=== PATIENT | male | born 1965 | race Two or more races ===

== ENCOUNTER 2018-07-11 20:23 | Emergency (ER) | payer OTHER ==
[~2018-07-11] VITALS: Ht 167.6 cm; Wt 68.0 kg
[2018-07-11 20:34] VITALS: BP 184/108
[2018-07-11] MEDS: HYDROcodone/Acetamin 7.5/325 tab ORAL ONE (20:43)
[2018-07-11] MEDS: Tetanus/Diptheria/Pertussis Vaccine 0.5ml Syr IM ONE (20:47)
[2018-07-11] MEDS ORDERED: IBUPROFEN600 MG ORAL (21:16)
[2018-07-11] MEDS ORDERED: NORCO 5-325 TA1 EACH ORAL (21:16)
[2018-07-11] MEDS ORDERED: SILVADENE20 GM TP (21:16)
[2018-07-11 21:20] VITALS: BP 184/108
--- NOTE | 2018-07-11 21:36 | Emergency Room Report ---
History of Present Illness General Chief Complaint: Burn/Smoke Inhalation Source: Patient Present Illness HPI The patient is a 53-year-old male presenting for burn injury. He states that he was at work one hour prior to arrival and hot oil spilled onto his right arm and hand. He noticed immediate pain. He ran cold water over his arm and hand before arrival. Pain is now an 8 out of 10 dull ache and does not radiate. He denies any numbness or tingling. He denies any other injury or symptoms Allergies: Coded Allergies: No Known Allergies (Unverified , 07/11/18) Patient History Past Medical History: see triage record Pertinent Family History: none Reviewed Nursing Documentation: PMH: Agreed; PSxH: Agreed Nursing Documentation-PM Past Medical History: No History, Except For Hx Diabetes: Yes Review of Systems All Other Systems: negative except mentioned in HPI Physical Exam Vital Signs Date Time Temp Pulse Resp B/P (MAP) Pulse Ox O2 Delivery O2 Flow Rate FiO2 07/11/18 20:27 98.4 101 16 184/108 96 07/11/18 20:34 Room Air Sp02 EP Interpretation: reviewed, normal General Appearance: no apparent distress, alert, GCS 15, non-toxic Head: normocephalic, atraumatic Musculoskeletal: back normal, gait/station normal, normal range of motion Neurologic: alert, oriented x3, responsive, motor strength/tone normal, sensory intact, speech normal Psychiatric: judgement/insight normal, memory normal, mood/affect normal, no suicidal/homicidal ideation Skin: ivan - erythema and blistering of the distal r forearm and hand dorsal surface Medical Decision Making PA Attestation Dr. Bhatia is my supervising physician. Patient management was discussed with my supervising physician Diagnostic Impression: Primary Impression: 2nd degree burn ER Course The patient is a 53-year-old male presenting for burn injury. Differential diagnosis considered but not limited to: First-degree burn, second- degree burn, third-degree burn Physical exam: No apparent distress There is scattered erythema as well as several areas of intact blisters of the right dorsal surface of the distal forearm and hand. Full active range of motion of the wrist and fingers are intact. Sensation is intact to light touch Silvadene is applied to burn areas Blisters remain intact He is given pain medication and pain has improved. He is given work restrictions including limited use of right hand. He is told to not pop the blisters. He will need to follow up with primary care for wound check within 3-5 days. ER precautions given Last Vital Signs Date Time Temp Pulse Resp B/P (MAP) Pulse Ox O2 Delivery O2 Flow Rate FiO2 07/11/18 21:20 98.4 101 16 184/108 96 Room Air Status: improved Disposition: HOME, SELF-CARE Condition: Improved Scripts Silver Sulfadiazine (SILVADENE) 20 Gm Cream..g. 20 GM TP Q12HR, #20 GM Prov: NITESH GAGNON.A. 07/11/18 Hydrocodone Bit/Acetaminophen 5-325* (NORCO 5-325*) 1 Each Tablet 1 TAB ORAL Q6H PRN for For Pain, #10 TAB 0 Refills Prov: NITESH GAGNON.A. 07/11/18 Ibuprofen* (MOTRIN*) 600 Mg Tablet 600 MG ORAL Q8H PRN for For Pain, #30 TAB 0 Refills Prov: NITESH GAGNON.A. 07/11/18 Patient Instructions: Second-Degree Burn Additional Instructions: I discussed my findings with the patient. All questions and concerns have been answered. Treatment and medication compliance have been addressed. I advised the patient that they need to follow up with PMD in 3-5 days. Return to ED if symptoms worsen, new symptoms arise, or if needed for any reason. Patient verbalized understanding of discharge instructions. NITESH GAGNON Jul 11, 2018 21:36
== END 2018-07-11 21:20 | disposition home or self-care (01) ==
LOC: EDSEX 20:23 → EMR 20:54
DX: T23.201A Burn of second degree of right hand, unspecified site, initial encounter (principal); T31.0 Burns involving less than 10% of body surface; X10.2XXA Contact with fats and cooking oils, initial encounter; Y92.69 Other specified industrial and construction area as the place of occurrence of the external cause; E11.9 Type 2 diabetes mellitus without complications; Z23 Encounter for immunization
CPT/HCPCS: 90471; 90715; 99283

== ENCOUNTER 2020-06-28 12:29 | Inpatient (IN) | payer SELFPAY ==
[~2020-06-28] VITALS: Ht 170.2 cm; Wt 70.3 kg
[~2020-06-28 12:29] MED LIST: IBUPROFEN600 MG ORAL; NORCO 5-325 TA1 EACH ORAL; SILVADENE20 GM TP
[2020-06-28] MEDS ORDERED: dexAMETHasone 10mg/ml Inj IV ONE (13:00)
[2020-06-28 13:05] VITALS: BP 135/79
--- NOTE | 2020-06-28 13:10 | NUR ---
ED Nurse Note: pt presents to ED c/o MONTANEZ x 4 days, denies fevers, or chills but is noted to be febrile in triage with saturation inthe 84%-85% range. pt states he did not know he had a fever, has not come into contact with anyone sick, does not work anymore and has not experienced SOB. pt denies loss of taste/smell or N/V/D. pt immediately placed on simple mask with 6L O2, saturation improves to 95%.
[2020-06-28 13:35] LABS: BASOPHILS % (AUTO) 0.4 % (0.0-2.0); HEMATOCRIT 49.1 % (42.0-52.0); HEMOGLOBIN 17.5 G/DL (14.2-18.0); LYMPHOCYTES % (AUTO) 12.7 % (20.0-45.0); MEAN CORPUSCULAR VOLUME 95 FL (80-99); MONOCYTES % (AUTO) 4.1 % (1.0-10.0); NEUTROPHILS % (AUTO) 82.8 % (45.0-75.0); PLATELET COUNT 142 K/UL (150-450); RED BLOOD COUNT 5.16 M/UL (4.70-6.10); RED CELL DISTRIBUTION WIDTH 11.6 % (11.6-14.8); WHITE BLOOD COUNT 7.6 K/UL (4.8-10.8)
[2020-06-28 13:43] LABS: INR 0.9 (0.9-1.1)
[2020-06-28 13:47] LABS: ANION GAP 9 mmol/L (5-15); BLOOD UREA NITROGEN 9 mg/dL (7-18); CALCIUM 8.4 MG/DL (8.5-10.1); CARBON DIOXIDE 25 MMOL/L (21-32); CHLORIDE 98 MMOL/L (98-107); CREATININE 0.9 MG/DL (0.55-1.30); POTASSIUM 4.4 MMOL/L (3.5-5.1); SODIUM 132 MMOL/L (136-145)
[2020-06-28 13:55] VITALS: BP 137/80
[2020-06-28 14:06] LABS: ALANINE AMINOTRANSFERASE 75 U/L (12-78); ALBUMIN 3.3 G/DL (3.4-5.0); ALBUMIN/GLOBULIN RATIO 0.7 (1.0-2.7); ALKALINE PHOSPHATASE 72 U/L (46-116); ASPARTATE AMINO TRANSFERASE 86 U/L (15-37); BILIRUBIN,TOTAL 0.6 MG/DL (0.2-1.0); CKMB < 0.5 NG/ML (0.0-3.6); CREATINE KINASE 121 U/L (26-308); FERRITIN 1973 NG/ML (8-388); LACTATE DEHYDROGENASE 677 U/L (81-234)
--- NOTE | 2020-06-28 14:08 | Emergency Room Report ---
History of Present Illness General Chief Complaint: Flu Like Symptoms Source: Patient (Gabriella Schwarz) Present Illness HPI 55-year-old male with history of type 2 diabetes, hypertension currently taking medication here complaining of 4 days of exenatide headache. Denies any shortness of breath, chest pain, cough and congestion. Reports a minor sore throat. Patient appears to be hypoxic satting 84% upon arrival. Denies any chest tightness at this time. Denies diarrhea. Patient also appears to be tachycardic. Has not taken medication for symptom relief. Patient speaking full sentences, denies any blood thinners. 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: No (Gabriella Schwarz) Patient History Past Medical History: see triage record Past Surgical History: none Pertinent Family History: none Immunizations: UTD Reviewed Nursing Documentation: PMH: Agreed; PSxH: Agreed (Gabriella Schwarz) Nursing Documentation-PMH Past Medical History: No History, Except For Hx Diabetes: Yes (Gabriella Schwarz) Review of Systems All Other Systems: negative except mentioned in HPI (Gabriella Schwarz) Physical Exam Vital Signs Date Time Temp Pulse Resp B/P (MAP) Pulse Ox O2 Delivery O2 Flow Rate FiO2 06/28/20 12:40 102.7 114 24 135/79 (97) 84 Room Air 06/28/20 13:25 6.0 Sp02 EP Interpretation: abnormal - Hypoxic and tachycardic General Appearance: moderate distress Head: normocephalic, atraumatic Eyes: bilateral eye normal inspection, bilateral eye PERRL ENT: no angioedema Neck: supple Respiratory: no respiratory distress, no retraction, no accessory muscle use Cardiovascular #1: tachycardia Cardiovascular #2: 2+ carotid (R), 2+ carotid (L), 2+ radial (R), 2+ radial (L), 2+ dorsalis pedis (R), 2+ dorsalis pedis (L) Gastrointestinal: non tender, soft Rectal: deferred Genitourinary: no CVA tenderness Musculoskeletal: back normal, no calf tenderness Neurologic: alert, motor strength/tone normal, oriented x3, sensory intact, responsive, speech normal Psychiatric: judgement/insight normal, memory normal, mood/affect normal, no suicidal/homicidal ideation Skin: no rash Lymphatic: no adenopathy (Gabriella Schwarz) Procedures Critical Care Time Critical Care Time Total critical care time; approximately 31 minutes. Due to a high probability of clinically significant, life threatening deterioration, the patient required my highest level of preparedness to intervene emergently and I personally spent this critical care time directly and personally managing the patient. This critical care time included obtaining a history; examining the patient; pulse oximetry; ordering and reviewing of studies; arranging urgent treatment with development of a management plan; evaluation of patient's response to treatment; frequent reassessment; and, discussions with other providers. This critical care time was performed to assess and manage the high probability of imminent, life-threatening deterioration that could result in multiorgan failure it was exclusive of separate billable procedures and treating other patients and te aching time. Please see MDM section and the rest of the note for further information on patient assessment and treatment. (Gabriella Schwarz) Medical Decision Making PA Attestation All my diagnosis and treatment plans were reviewed ad discussed with my supervising physician Dr. Martinez (Gabriella Schwarz) Diagnostic Impression: Primary Impression: Pneumonia due to COVID-19 virus Additional Impression: Hypoxia ER Course 55-year-old male with history of type 2 diabetes, hypertension currently taking medication here complaining of 4 days of exenatide headache. Denies any shortness of breath, chest pain, cough and congestion. Reports a minor sore throat. Patient appears to be hypoxic satting 84% upon arrival. Denies any chest tightness at this time. Denies diarrhea. Patient also appears to be tachycardic. Has not taken medication for symptom relief. Patient speaking full sentences, denies any blood thinners. Ddx considered but are not limited to: bronchitis, PNA, URI viral, bacterial brochitis, Covid pneumonia Vital signs: are WNL, pt. is afebrile H&PE are most consistent with: Covid pneumonia, hypoxia ORDERS: ER Covid order set ED INTERVENTIONS: Rocephin, azithromycin, Lovenox, Decadron, nonrebreather oxygen 6 L Patient was admited with diagnosis of hypoxia, Covid pneumonia to Dr. Yun under supervision of : Juan Patient satting at 98% on 6 L nonrebreather pt stable at time of admission (Gabriella Schwarz) ER Course Patient was noted to have multilobar infiltrates on chest x-ray consistent with suspected coronavirus pneumonia. Patient started on medications including Decadron and anticoagulation. Patient will be hospitalized for further evaluation and treatment of suspected coronavirus pneumonia despite negative rapid testing. (Anthony Cruz MD) EKG Diagnostic Results Rate: tachycardiac Rhythm: other - Tachycardic ST Segments: no acute changes ASA given to the pt in ED: No (Gabriella Schwarz) Chest X-Ray Diagnostic Results Chest X-Ray Diagnostic Results : Chest X-Ray Ordered: Yes # of Views/Limited/Complete: 1 View Indication: Other EP Interpretation: Yes PA Xray: Interpretation reviewed, by supervising MD, and agrees with findings. Interpretation: other - Diffuse infiltrates which appear to be Covid pneumonia Impression: Other - Pneumonia Electronically Signed by: Gabriella Mendoza PA-C (Gabriella Schwarz) Last Vital Signs Date Time Temp Pulse Resp B/P (MAP) Pulse Ox O2 Delivery O2 Flow Rate FiO2 06/28/20 13:55 102.7 105 24 137/80 99 Simple Mask 6.0 (Gabriella Schwarz) Status: unchanged (Anthony Cruz MD) Disposition: ADMITTED INPATIENT Condition: Serious Referrals: NOT CHOSEN IPA/,REFERRING (PCP) Gabriella Schwarz Jun 28, 2020 14:08 Anthony Cruz MD Jun 28, 2020 15:55
[2020-06-28] MEDS ORDERED: Enoxaparin 60mg Inj SUBQ ONE (14:15)
--- NOTE | 2020-06-28 14:20 | NUR ---
ED Nurse Note: oral temp recheck: 100.3
[2020-06-28] MEDS ORDERED: Azithromycin 500 MG in NS 275 ML IV ONE (14:30)
[2020-06-28] MEDS ORDERED: cefTRIAXone 1 GM in NS 55 ML IVPB ONE (14:30)
[2020-06-28 14:45] LABS: APPEARANCE,URINE CLEAR; BILIRUBIN, URINE NEGATIVE (NEGATIVE); GLUCOSE, URINE (UA) 4+ (NEGATIVE); KETONES,URINE 4+ (NEGATIVE); LEUKOCYTE ESTERASE ,URINE 1+ (NEGATIVE); NITRITE,URINE NEGATIVE (NEGATIVE); PH,URINE 6 (4.5-8.0); PROTEIN,URINE 4+ (NEGATIVE); UROBILINOGEN,URINE 1 MG/DL (0.0-1.0)
[2020-06-28 14:46] LABS: COLOR,URINE YELLOW
[2020-06-28 15:30] VITALS: BP 137/80
--- NOTE | 2020-06-28 15:49 | Diagnostic Imaging Report ---
Indication: Reason For Exam: SOB Technique: Single AP view of the chest. Comparison: None. Findings: Heart is not enlarged when accounting for projection and technique. There are diffuse bilateral interstitial opacities. There is diffuse peribronchial thickening. There is multifocal airspace consolidation and scattered airspace opacities. No pneumothorax or pleural effusion. No acute osseous abnormality. IMPRESSION: Bilateral airspace disease concerning for multifocal pneumonia, including atypical/viral etiologies.
--- NOTE | 2020-06-28 17:45 | Consultation ---
DATE OF CONSULTATION: 06/28/2020 PULMONARY CONSULTATION CONSULTING PHYSICIAN: Eloy Garg MD HISTORY OF PRESENT ILLNESS: This is a 55-year-old male being admitted to the hospital with concerns of pneumonia. He is a diabetic and hypertensive, who presented to the hospital with severe headache. He reported throat congestion. Patient was hypoxic on arrival with saturating 84% on emergency room. He was also tachycardic. Patient was seen and evaluated. Currently, saturations are 96% on 6 L simple mask. He underwent imaging studies today, which have shown that he has bilateral multifocal airspace disease suspicious for pneumonia. PAST MEDICAL HISTORY: Hypertension, diabetes mellitus. HOME MEDICATIONS: Reviewed and reconciled in the chart. ALLERGIES: None reported. PAST SURGICAL HISTORY: None reported. SOCIAL HISTORY: Denies any alcohol or tobacco use. PHYSICAL EXAMINATION: GENERAL: Reveals a 55-year-old male. HEENT: Unremarkable. LUNGS: Clear breath sounds bilaterally. ABDOMEN: Soft. EXTREMITIES: There is no edema. NEUROLOGIC: Nonfocal. VITAL SIGNS: Blood pressure is 130/70, heart rate is 94, respirations are 22, O2 saturation is 98% on 6 liters of oxygen, T-max 102.7. LABORATORY DATA: Lab testing shows normal CBC. BMP notable for glucose 244. Ferritin 1973. AST 86. LDH . CRP 27.7. Coags show D-dimer 0.9. Urinalysis negative. IMPRESSION: 1. Bilateral pulmonary infiltrates, high suspicion for COVID-19 pneumonia. 2. Elevated inflammatory markers. 3. Negative initial rapid gene testing for COVID-19. 4. Hypertension. 5. Diabetes mellitus. 6. Fever. DISCUSSION: Agree with admission and care. Patient will need steroids. He will receive dexamethasone x1. He will also need DVT prophylaxis and empiric antibiotics. We will order COVID-19 PCR with [facility]. We will send to [facility]. We will follow carefully. Order oxygen. Eloy Garg M.D. DR: DONAVON JOB#: [id number] CC:
[2020-06-28 17:55] VITALS: BP 130/79
--- NOTE | 2020-06-28 18:19 | NUR ---
ED Nurse Note: Report given to Addis VARGAS.
--- NOTE | 2020-06-28 18:20 | NUR ---
ED Nurse Note: Pt transferred to tele floor with all belongings. No acute distress. Pt has been cleared by ERMD to be transfererd.
[2020-06-28 18:30] VITALS: BP 113/71
--- NOTE | 2020-06-28 18:30 | NUR ---
NURSE NOTES: Received pt report from ALICIA Swan. Transferred from ER to Tele via [facility] to room 201-2. Changed pt to hospital gown, security monitor in place. Vital signs taken. Pt is AO x4. Able to make needs known. Pt on simple mask @6L with no signs of respiratory distress noted. Pt denies any pain or discomfort at this time. Skin is intact. Pt with R AC 20G, patent and intact. Belonging check done and signed. Bed in lowest position, locked with side rails x2 up. Call light and urinal within reach. Encouraged to use call light when needed. Will endorse admission order to shift supervisor.
--- NOTE | 2020-06-28 19:32 | NUR ---
NURSE HAND-OFF REPORT: Important Events on Shift: New admission Patient Status: Stable Diet: N/A Pending Orders: N/A Pending Results/Labs:N/A Pending MD notification:N/A Latest Vital Signs: Temperature 98.4 , Pulse 94 , B/P 117 /65 , Respiratory Rate 23 , O2 SAT 96 , Nasal Cannula, O2 Flow Rate 6.0 . Vital Sign Comment: stable EKG Rhythm: Sinus Rhythm Rhythm change?: MD Notified?: - MD Response: Latest Stafford Fall Score: Fall Risk: Safety Measures: Call light , Bed Alarm , Side Rails , Bed position . Fall Precautions: Report given to Elsa/ALICIA.
--- NOTE | 2020-06-28 19:33 | NUR ---
NURSE NOTES: Important Events on Shift: Received report from Sybil Edmonds RN for new admission from ER per [facility]. Pt is AOx4, Nigerien speaking, denies pain. No signs or symptoms of distress noted at this time. VS WNL, simple mask at 6 L. Droplet, contact precautions in place. Pt instructed to use call light if assistance is needed, verbalized understanding. Will start plan of care and continuous monitoring. Patient Status: stable Diet: pending MD order Pending Orders: diet, Pending Results/Labs: none Pending MD notification: none Latest Vital Signs: Temperature 97.2 , Pulse 83 , B/P 98/50 , Respiratory Rate 22 , O2 SAT 99 , Simple mask @ 6L,, O2 Flow Rate 6.0 . Vital Sign Comment: Stable, asymptomatic EKG Rhythm: Sinus Rhythm Rhythm change?: MD Notified?: - MD Response: Latest Stafford Fall Score: Fall Risk: mild Safety Measures: Call light within reach, Bed Alarm armed, Side Rails x 2, Bed position Semi fowlers low and locked. . Fall Precautions: YES
[2020-06-29 04:00] VITALS: BP 110/72
[2020-06-29] MEDS ORDERED: Morphine Sulfate 2mg/ml Inj(IV/IM USE ONLY) IVP PRN (04:15)
--- NOTE | 2020-06-29 07:05 | NUR ---
NURSE NOTES: Pt does not have Novolog on unit yet. Called pharmacy, spoke to José Antonio who said they'd send it to unit. Endorsed to AM shift RN Wanda Douglass RN. Pt asymptomatic.
--- NOTE | 2020-06-29 07:06 | NUR ---
NURSE HAND-OFF REPORT: Important Events on Shift: Admitted to Tele 201-2. Received orders from [facility]. Pt has no complaints, no signs or symptoms of pain or distress noted at this time. Droplet and contact precautions in place. Patient Status: stable Diet: CCHO M, Low Na Pending Orders: none Pending Results/Labs: cbc, cmp Pending MD notification: none Latest Vital Signs: Temperature 97.8 , Pulse 84 , B/P 110 /72 , Respiratory Rate 20 , O2 SAT 97 , Nasal Cannula, O2 Flow Rate 6.0 . Vital Sign Comment: stable EKG Rhythm: Sinus Rhythm Rhythm change?: N MD Notified?: - MD Response: Latest Stafford Fall Score: 20 Fall Risk: Low Risk Safety Measures: Call light Within Reach, Bed Alarm Zone 1, Side Rails Side Rails x2, Bed position Low and Locked. Fall Precautions: YES Yellow Socks YES Yellow Gown YES Patient Fall Education YES Report given to Wanda Douglass RN
--- NOTE | 2020-06-29 07:10 | NUR ---
NURSE NOTES: Called respiratory therapist and Dr. Yun and Dr. Garg regarding low 90's oxygen saturation. Left voicemails for the doctor of the patient status and request for oxygen titration. Respiratory therapist coming to increase oxygen.
[2020-06-29 07:43] LABS: BASOPHILS % (AUTO) 0.5 % (0.0-2.0); HEMATOCRIT 44.1 % (42.0-52.0); HEMOGLOBIN 16.1 G/DL (14.2-18.0); LYMPHOCYTES % (AUTO) 20.4 % (20.0-45.0); MEAN CORPUSCULAR VOLUME 94 FL (80-99); MONOCYTES % (AUTO) 3.9 % (1.0-10.0); NEUTROPHILS % (AUTO) 75.3 % (45.0-75.0); PLATELET COUNT 154 K/UL (150-450); RED BLOOD COUNT 4.67 M/UL (4.70-6.10); RED CELL DISTRIBUTION WIDTH 11.7 % (11.6-14.8); WHITE BLOOD COUNT 4.5 K/UL (4.8-10.8)
[2020-06-29 07:56] LABS: ALANINE AMINOTRANSFERASE 77 U/L (12-78); ALBUMIN 2.7 G/DL (3.4-5.0); ALBUMIN/GLOBULIN RATIO 0.6 (1.0-2.7); ALKALINE PHOSPHATASE 59 U/L (46-116); ANION GAP 12 mmol/L (5-15); ASPARTATE AMINO TRANSFERASE 76 U/L (15-37); BILIRUBIN,TOTAL 0.5 MG/DL (0.2-1.0); BLOOD UREA NITROGEN 15 mg/dL (7-18); CALCIUM 8.4 MG/DL (8.5-10.1); CARBON DIOXIDE 23 MMOL/L (21-32); CHLORIDE 104 MMOL/L (98-107); CREATININE 0.7 MG/DL (0.55-1.30); POTASSIUM 4.3 MMOL/L (3.5-5.1); SODIUM 139 MMOL/L (136-145)
[2020-06-29 08:00] VITALS: BP 114/75
[2020-06-29] MEDS: NovoLOG Insulin Flexpen SUBQ SCH ×5 (08:37→20:19)
[2020-06-29] MEDS: Heparin 5000 units/ml inj SUBQ SCH ×2 (08:41→20:17)
[2020-06-29] MEDS: guaiFENesin /DM 10ml syrup ORAL PRN (10:52)
[2020-06-29 12:00] VITALS: BP 117/71
--- NOTE | 2020-06-29 12:10 | NUR ---
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 102.8 HR 114 RR 21 B/P 138/78 UA+ PROTEIN,KETONES,BLOOD,UROBILINOGEN CXR=Bilateral airspace disease concerning for multifocal pneumonia, including ATYPICAL/VIRAL ETIOLOGIES. IS: IV BOLUS NS X 1 LITER ADMITTED TO TELE@ 1850 TELE STATUS DCP PENDING HOSPITAL STAY
--- NOTE | 2020-06-29 15:00 | History and Physical Report ---
DATE OF ADMISSION: 06/28/2020 DATE AND TIME SEEN: 06/29/2020 at 1 p.m. CONSULTANTS: 1. Eloy Garg MD 2. Navarro Zuñiga MD CHIEF COMPLAINT: Hypoxia, pneumonia, positive COVID, fever. BRIEF HISTORY: This is a 55-year-old male presented to [facility] last night with above-mentioned diagnoses, slight short of breath for 2 days. Currently getting pulmonary treatment, sleeping in bed. History is obtained from chart review. REVIEW OF SYSTEMS: Unavailable. PAST MEDICAL HISTORY: Diabetes, hypertension. PAST SURGICAL HISTORY: Unknown. MEDICATIONS: Include heparin, albuterol, insulin, morphine, Zofran, , azithromycin, ceftriaxone, enoxaparin. ALLERGIES: Denies. SOCIAL HISTORY: No smoking. No alcohol. No intravenous drug abuse. FAMILY HISTORY: Noncontributory. PHYSICAL EXAMINATION: GENERAL: Pulmonary treatment in bed, sleepy, not talking much. Calm in room. VITAL SIGNS: Temperature 97 degrees, pulse 89, respirations 20, blood pressure 117/71. HEENT: Normocephalic, atraumatic. NECK: Trachea midline. CARDIOVASCULAR: No peripheral edema. LUNGS: Slight short of breath. ABDOMEN: No apparent wounds. EXTREMITIES: No cyanosis or clubbing. NEUROLOGIC: Patient is flaccid in bed, not following directions. LABORATORY AND DIAGNOSTIC DATA: Labs at this time show white count 4.5, otherwise CBC is normal. BMP shows glucose 283, otherwise normal. Albumin 2.7. INR is 0.9. Urinalysis show 1+ leukocyte esterase. ASSESSMENT: 1. Hypoxia. 2. Pneumonia. 3. UTI. 4. Possible COVID. 5. Fever. 6. Diabetes. 7. Hypertension. 8. Malnutrition. PLAN: 1. Resume home medications. 2. O2, pulmonary treatment. 3. Antibiotics per Infectious Disease. 4. Blood pressure, blood sugar control. 5. PT, dietary evaluation. 6. CBC, BMP in the morning. Melo Yun D.O. DR: JADA JOB#: [id number] CC:
--- NOTE | 2020-06-29 15:14 | NUR ---
NURSE NOTES: Notified Dr. Fontaine in person regarding blood culture 1 bottle positive for cocci with clusters.
--- NOTE | 2020-06-29 15:16 | NUR ---
NURSE NOTES: Notified and left a voicemail for Dr. Zuñiga regarding blood culture 1 bottle positive for cocci with clusters. Awaiting response.
--- NOTE | 2020-06-29 15:20 | Pulmonology Progress Note ---
Subjective ROS Limited/Unobtainable: No Interval Events: None new Constitutional: Reports: no symptoms HEENT: Repors: no symptoms Respiratory: Reports: dry cough Cardiovascular: Reports: no symptoms Gastrointestinal/Abdominal: Reports: no symptoms Musculoskeletal: Reports: no symptoms Allergies: Coded Allergies: No Known Allergies (Unverified , 07/11/18) Objective Last 24 Hour Vital Signs Date Time Temp Pulse Resp B/P (MAP) Pulse Ox O2 Delivery O2 Flow Rate FiO2 06/29/20 12:00 97.5 98 20 117/71 (86) 95 06/29/20 12:00 89 06/29/20 08:00 89 06/29/20 08:00 97.5 90 19 114/75 (88) 94 06/29/20 04:00 97.8 84 20 110/72 (85) 97 06/29/20 03:23 Simple Mask 6.0 06/29/20 00:00 85 06/28/20 20:00 76 06/28/20 18:30 98.4 94 23 117/65 96 Nasal Cannula 6.0 06/28/20 18:30 97.5 83 19 113/71 (85) 97 06/28/20 17:55 100.3 92 32 130/79 99 Simple Mask 6.0 06/28/20 15:30 100.3 99 36 137/80 98 Simple Mask 6.0 Intake and Output 06/28/20 06/29/20 19:00 07:00 Intake Total 100 ml 800 ml Output Total 1000 ml Balance 100 ml -200 ml Intake Oral 100 ml 800 ml Output Urine Total 1000 ml # Voids 3 Objective 06/29/2020 pt in bed; saturating 97% on 6 lpm simple face mask General Appearance: WD/WN, no acute distress HEENT: normocephalic Respiratory: chest wall non-tender, lungs clear, normal breath sounds Cardiovascular: normal rate, regular rhythm, no gallop/murmur Microbiology Date/Time Source Procedure Growth Status 06/28/20 13:45 Nasopharynx SARS-CoV-2 RdRp Gene Assay - Final Complete 06/28/20 13:15 Blood Blood Culture - Preliminary Resulted Laboratory Tests 06/29/20 05:33: POC Whole Blood Glucose 261H 06/29/20 05:36: White Blood Count 4.5L, Red Blood Count 4.67L, Hemoglobin 16.1, Hematocrit 44.1, Mean Corpuscular Volume 94, Mean Corpuscular Hemoglobin 34.5H, Mean Corpuscular Hemoglobin Concent 36.5H, Red Cell Distribution Width 11.7, Platelet Count 154, Mean Platelet Volume 8.8, Neutrophils (%) (Auto) 75.3H, Lymphocytes (%) (Auto) 20.4, Monocytes (%) (Auto) 3.9, Eosinophils (%) (Auto) 0.0, Basophils (%) (Auto) 0.5, Sodium Level 139, Potassium Level 4.3, Chloride Level 104, Carbon Dioxide Level 23, Anion Gap 12, Blood Urea Nitrogen 15, Creatinine 0.7, Estimat Glomerular Filtration Rate > 60, Glucose Level 283H, Hemoglobin A1c 6.8H, Calcium Level 8.4L, Total Bilirubin 0.5, Aspartate Amino Transf (AST/SGOT) 76H, Alanine Aminotransferase (ALT/SGPT) 77, Alkaline Phosphatase 59, Total Protein 6.9, Albumin 2.7L, Globulin 4.2, Albumin/Globulin Ratio 0.6L 06/29/20 08:34: POC Whole Blood Glucose 369H Current Medications Medications (Trade) Dose Ordered Sig/Sunshine Route PRN Reason Start Time Stop Time Status Last Admin Dose Admin Acetaminophen (Tylenol) 650 mg Q6H PRN ORAL Pain 0-4/10 or Temp >100.4 F 06/29/20 04:15 07/29/20 04:14 Albuterol/ Ipratropium (Combivent Respimat) 1 puff Q6H PRN INH coughing/SOB 06/29/20 07:00 07/29/20 06:59 Dextrose (Dextrose 50%) 25 ml Q30M PRN IV Hypoglycemia 06/29/20 04:15 09/27/20 04:14 Dextrose (Dextrose 50%) 50 ml Q30M PRN IV Hypoglycemia 06/29/20 04:15 09/27/20 04:14 Guaifenesin/ Dextromethorphan (Robitussin DM Syrup) 10 ml Q4H PRN ORAL For Cough 06/29/20 04:15 09/27/20 04:14 06/29/20 10:52 Heparin Sodium (Porcine) (Heparin 5000 units/ml) 5,000 units EVERY 12 HOURS SUBQ 06/29/20 09:00 08/13/20 08:59 06/29/20 08:41 Insulin Aspart (NovoLOG) BEFORE MEALS AND HS SUBQ 06/29/20 06:30 09/27/20 06:29 06/29/20 10:59 Morphine Sulfate (Morphine Sulfate) 2 mg Q4H PRN IVP For Pain Scale 5-10 06/29/20 04:15 07/06/20 04:14 Ondansetron HCl (Zofran) 4 mg Q6H PRN IVP Nausea & Vomiting 06/29/20 04:15 07/29/20 04:14 Sodium Chloride 1,000 ml @ 60 mls/hr [id number] IV 06/29/20 05:30 07/29/20 05:29 06/29/20 05:30 Assessment/Plan Assessment/Plan 1. Bilateral pulmonary infiltrates, high suspicion for COVID-19 pneumonia. - on dexamethasone - empiric Abx - currently on 6 lpm NC saturating 97% 2. Elevated inflammatory markers. 3. Negative initial rapid gene testing for COVID-19. 4. Hypertension. 5. Diabetes mellitus. 6. Fever. We will order COVID-19 PCR with [facility]. We will send to [facility]. The care for this patient was discussed with my supervising physician Time spent for this case was approximately 31 minutes The patient was seen and examined at bedside and all new and available data was reviewed in the patients chart. I agree with the above findings, impression, and plan. (Patient was seen earlier today. Signature timestamp does not reflect patient encounter time) Zhen Austin MD Jun 29, 2020 15:20 Eloy Garg MD Jun 29, 2020 17:46
[2020-06-29 16:00] VITALS: BP 123/79
[2020-06-29] MEDS ORDERED: Vancomycin 1.5gm/300ml Premix IVPB ONE (16:30)
--- NOTE | 2020-06-29 18:03 | NUR ---
NURSE NOTES: Called and left a message to Dr. Jama Voss's exchange and told him that blood sugars have been consistently high over 300, three times today. Was told that Dr. hadley will callback with the callback number given.
--- NOTE | 2020-06-29 19:10 | NUR ---
NURSE HAND-OFF REPORT: Important Events on Shift: simple face mask at 6L, high bgl and Dr. Yun notified Patient Status: stable condition, full code Diet: CCHO medium, low sodium Pending Orders: [] Pending Results/Labs:[] Pending MD notification:[] Latest Vital Signs: Temperature 98.1 , Pulse 87 , B/P 123 /79 , Respiratory Rate 20 , O2 SAT 97 , Simple Mask, O2 Flow Rate 6.0 . Vital Sign Comment: [] EKG Rhythm: Sinus Rhythm Rhythm change?: N MD Notified?: - MD Response: Latest Stafford Fall Score: 20 Fall Risk: Low Risk Safety Measures: Call light Within Reach, Bed Alarm Zone 2, Side Rails Side Rails x2, Bed position Low and Locked. Fall Precautions: Yellow Socks Yellow Gown Patient Fall Education Report given to ALICIA Sepulveda.
--- NOTE | 2020-06-29 19:15 | NUR ---
NURSE NOTES: Received report from ALICIA Cuellar. Patient AOx3, able to verbalize pain and communicate needs. On simple face mask at 6lpm, saturating well. No complaints of pain or discomfort at this time. Not in acute distress. Patient able to move in bed independently. IV sites on RFA #22 flushed and IVF running at a prescribed rate. Another IV site on RAC #20g, saline lock. Flushed. Bed in lowest position, brakes engaged and bed alarm on. Bed rails raised x2. Call light placed within reach. Will continue to monitor.
[2020-06-29 20:00] VITALS: BP 121/77
[2020-06-29] MEDS ORDERED: Levemir Flexpen SUBQ SCH (21:00)
[2020-06-29] MEDS: Vancomycin 750mg/NS 275ml IVPB SCH ×2 (23:03)
[2020-06-30] VITALS: BP 129/85
[2020-06-30 04:00] VITALS: BP 125/79
[2020-06-30] MEDS: Vancomycin 750mg/NS 275ml IVPB SCH ×6 (05:03→21:11)
[2020-06-30] MEDS: NovoLOG Insulin Flexpen SUBQ SCH ×7 (06:14→21:07)
--- NOTE | 2020-06-30 06:54 | General Progress Note ---
Subjective ROS Limited/Unobtainable: Yes Allergies: Coded Allergies: No Known Allergies (Unverified , 07/11/18) Subjective events noted interval notes reviewed glucose values are elevated Item Value Date Time Bedside Blood Glucose 316 mg/dl H 06/30/20 0630 Bedside Blood Glucose 303 mg/dl H 06/29/20 2100 Bedside Blood Glucose 362 mg/dl H 06/29/20 1646 Bedside Blood Glucose 318 mg/dl H 06/29/20 1130 Bedside Blood Glucose 369 mg/dl H 06/29/20 0837 Bedside Blood Glucose 261 mg/dl H 06/29/20 0630 Objective Last 24 Hour Vital Signs Date Time Temp Pulse Resp B/P (MAP) Pulse Ox O2 Delivery O2 Flow Rate FiO2 06/30/20 04:00 97.4 94 20 125/79 (94) 98 06/30/20 04:00 79 06/30/20 00:00 83 06/30/20 00:00 97.9 96 20 129/85 (100) 99 06/29/20 21:00 Simple Mask 6.0 06/29/20 20:00 98 06/29/20 20:00 98.1 96 20 121/77 (92) 97 06/29/20 16:00 98.1 87 20 123/79 (94) 97 06/29/20 16:00 Simple Mask 6.0 06/29/20 16:00 93 06/29/20 12:00 97.5 98 20 117/71 (86) 95 06/29/20 12:00 89 06/29/20 08:00 89 06/29/20 08:00 97.5 90 19 114/75 (88) 94 Intake and Output 06/29/20 06/30/20 19:00 07:00 Intake Total 400 ml 200 ml Output Total 1250 ml 1100 ml Balance -850 ml -900 ml Intake Oral 400 ml 200 ml Output Urine Total 1250 ml 1100 ml # Voids 3 3 Laboratory Tests 06/29/20 08:34: POC Whole Blood Glucose 369H 06/29/20 20:06: POC Whole Blood Glucose 303H 06/30/20 04:59: POC Whole Blood Glucose 316H Height (Feet): 5 Height (Inches): 7.00 Weight (Pounds): 155 Objective Current Medications Medications (Trade) Dose Ordered Sig/Sunshine Route PRN Reason Start Time Stop Time Status Last Admin Dose Admin Acetaminophen (Tylenol) 650 mg Q6H PRN ORAL Pain 0-4/10 or Temp >100.4 F 06/29/20 04:15 07/29/20 04:14 Albuterol/ Ipratropium (Combivent Respimat) 1 puff Q6H PRN INH coughing/SOB 06/29/20 07:00 07/29/20 06:59 Dextrose (Dextrose 50%) 25 ml Q30M PRN IV Hypoglycemia 06/29/20 18:30 09/27/20 18:29 Dextrose (Dextrose 50%) 50 ml Q30M PRN IV Hypoglycemia 06/29/20 18:30 09/27/20 18:29 Guaifenesin/ Dextromethorphan (Robitussin DM Syrup) 10 ml Q4H PRN ORAL For Cough 06/29/20 04:15 09/27/20 04:14 06/29/20 10:52 Heparin Sodium (Porcine) (Heparin 5000 units/ml) 5,000 units EVERY 12 HOURS SUBQ 06/29/20 09:00 08/13/20 08:59 06/29/20 20:17 Insulin Aspart (NovoLOG) BEFORE MEALS AND HS SUBQ 06/29/20 06:30 09/27/20 06:29 06/30/20 06:14 Insulin Aspart (NovoLOG) 8 units NOVOTIAC SUBQ 06/29/20 18:30 09/27/20 18:29 06/30/20 06:15 Insulin Detemir (Levemir) 24 units BEDTIME SUBQ 06/29/20 21:00 09/27/20 20:59 06/29/20 20:18 Morphine Sulfate (Morphine Sulfate) 2 mg Q4H PRN IVP For Pain Scale 5-10 06/29/20 04:15 07/06/20 04:14 Ondansetron HCl (Zofran) 4 mg Q6H PRN IVP Nausea & Vomiting 06/29/20 04:15 07/29/20 04:14 Sodium Chloride 1,000 ml @ 60 mls/hr [id number] IV 06/29/20 05:30 07/29/20 05:29 06/29/20 23:01 Vancomycin HCl (Vanco pharmacy to dose) 1 ea DAILY PRN MISC . 06/29/20 16:30 07/29/20 15:29 Vancomycin HCl 750 mg/Sodium Chloride 275 ml @ 183.333 mls/hr Q8HR IVPB 06/29/20 23:00 07/04/20 22:59 06/30/20 05:03 Assessment/Plan Problem List: (1) Diabetes mellitus out of control ICD Codes: E11.65 - Type 2 diabetes mellitus with hyperglycemia SNOMED: 72384451, 105142499 (2) Pneumonia due to COVID-19 virus ICD Codes: U07.1 - COVID-19; J12.89 - Other viral pneumonia SNOMED: 270120810194872153 Assessment/Plan: Levemir 20 units bid Novolog 12 units ac tid + SSI Lucio Portillo MD Jun 30, 2020 06:54
--- NOTE | 2020-06-30 07:18 | NUR ---
NURSE NOTES: Received report from Carl/RN. Pt awake, having breakfast in bed. Alert and oriented, able to make needs known. On simple mask 6L, no distress or SOB noted. IV on right FA 22G running 1/2 NS @ 60ml/hr and right AC 20G SL, patent and clean. Bed in lowest position and locked. Call light within reach, encouraged to use it when needed. Side rails up X2. Will continue plan of care.
--- NOTE | 2020-06-30 07:22 | NUR ---
CASE MANAGEMENT:REVIEW 06/30/20 SI: BILATERAL INFILTRATES. BACTEREMIA 97.4 79 20 125/79 98% ON 6L/MASK GLUCOSE+316 IS: IV VANCOMYCIN Q8HR IVF@60/HR HEPARIN SQ Q12 LEVEMIR SQ BID : TELEMETRY DCP: FROM HOME
--- NOTE | 2020-06-30 07:43 | NUR ---
NURSE HAND-OFF REPORT: Important Events on Shift:[N/A] Patient Status: [Full code] Diet: [CCHO medium, low sodium] Pending Orders: [] Pending Results/Labs:[] Pending MD notification:[] Latest Vital Signs: Temperature 97.4 , Pulse 94 , B/P 125 /79 , Respiratory Rate 20 , O2 SAT 98 , Simple Mask, O2 Flow Rate 6.0 . Vital Sign Comment: [] EKG Rhythm: Sinus Rhythm Rhythm change?: N MD Notified?: - MD Response: Latest Stafford Fall Score: 20 Fall Risk: Low Risk Safety Measures: Call light Within Reach, Bed Alarm Zone 2, Side Rails Side Rails x2, Bed position Low and Locked. Fall Precautions: Yellow Socks Yellow Gown Patient Fall Education Report given to [ALICIA Huynh].
[2020-06-30 08:00] VITALS: BP 141/83
[2020-06-30 08:32] LABS: ANION GAP 9 mmol/L (5-15); BLOOD UREA NITROGEN 13 mg/dL (7-18); CARBON DIOXIDE 24 MMOL/L (21-32); CHLORIDE 103 MMOL/L (98-107); CREATININE 0.6 MG/DL (0.55-1.30); HEMATOCRIT 42.9 % (42.0-52.0); HEMOGLOBIN 15.6 G/DL (14.2-18.0); MEAN CORPUSCULAR VOLUME 91 FL (80-99); PLATELET COUNT 156 K/UL (150-450); POTASSIUM 4.5 MMOL/L (3.5-5.1); RED BLOOD COUNT 4.69 M/UL (4.70-6.10); RED CELL DISTRIBUTION WIDTH 12.7 % (11.6-14.8); SODIUM 136 MMOL/L (136-145); WHITE BLOOD COUNT 11.5 K/UL (4.8-10.8)
[2020-06-30] MEDS: Heparin 5000 units/ml inj SUBQ SCH ×2 (09:06→21:11)
[2020-06-30] MEDS: Levemir Flexpen SUBQ SCH ×2 (09:12→17:46)
--- NOTE | 2020-06-30 09:12 | General Progress Note ---
Subjective Constitutional: Reports: weakness Allergies: Coded Allergies: No Known Allergies (Unverified , 07/11/18) All Systems: reviewed and negative except above Subjective calm in bed Objective Last 24 Hour Vital Signs Date Time Temp Pulse Resp B/P (MAP) Pulse Ox O2 Delivery O2 Flow Rate FiO2 06/30/20 08:00 96.1 92 20 141/83 (102) 94 06/30/20 04:00 97.4 94 20 125/79 (94) 98 06/30/20 04:00 79 06/30/20 00:00 83 06/30/20 00:00 97.9 96 20 129/85 (100) 99 06/29/20 21:00 Simple Mask 6.0 06/29/20 20:00 98 06/29/20 20:00 98.1 96 20 121/77 (92) 97 06/29/20 16:00 98.1 87 20 123/79 (94) 97 06/29/20 16:00 Simple Mask 6.0 06/29/20 16:00 93 06/29/20 12:00 97.5 98 20 117/71 (86) 95 06/29/20 12:00 89 Intake and Output 06/29/20 06/30/20 19:00 07:00 Intake Total 400 ml 200 ml Output Total 1250 ml 1100 ml Balance -850 ml -900 ml Intake Oral 400 ml 200 ml Output Urine Total 1250 ml 1100 ml # Voids 3 3 Laboratory Tests 06/29/20 20:06: POC Whole Blood Glucose 303H 06/30/20 04:59: POC Whole Blood Glucose 316H 06/30/20 06:00: White Blood Count 11.5#H, Red Blood Count 4.69L, Hemoglobin 15.6, Hematocrit 42.9, Mean Corpuscular Volume 91, Mean Corpuscular Hemoglobin 33.2H, Mean Corpuscular Hemoglobin Concent 36.4H, Red Cell Distribution Width 12.7, Platelet Count 156, Mean Platelet Volume 8.2, Neutrophils (%) (Auto) , Lymphocytes (%) (Auto) , Monocytes (%) (Auto) , Eosinophils (%) (Auto) , Basophils (%) (Auto) , Neutrophils % (Manual) [Pending], Lymphocytes % (Manual) [Pending], Platelet Estimate [Pending], Platelet Morphology [Pending], Sodium Level 136, Potassium Level 4.5, Chloride Level 103, Carbon Dioxide Level 24, Anion Gap 9, Blood Urea Nitrogen 13, Creatinine 0.6, Estimat Glomerular Filtration Rate > 60, Glucose Level 214H, Calcium Level 8.0L Height (Feet): 5 Height (Inches): 7.00 Weight (Pounds): 155 General Appearance: lethargic EENT: normal ENT inspection Neck: normal alignment Cardiovascular: normal peripheral pulses, normal rate, regular rhythm Respiratory/Chest: chest wall non-tender, lungs clear, normal breath sounds Abdomen: normal bowel sounds, non tender, soft Extremities: normal inspection Edema: no edema noted Arm (L), no edema noted Arm (R), no edema noted Leg (L), no edema noted Leg (R), no edema noted Pedal (L), no edema noted Pedal (R), no edema noted Generalized Neurologic: motor weakness Skin: normal pigmentation, warm/dry Assessment/Plan Problem List: (1) Pneumonia ICD Codes: J18.9 - Pneumonia, unspecified organism SNOMED: 676266505 (2) UTI (urinary tract infection) ICD Codes: N39.0 - Urinary tract infection, site not specified SNOMED: 69906119 (3) Diabetes ICD Codes: E11.9 - Type 2 diabetes mellitus without complications SNOMED: 61444384 (4) HTN (hypertension) ICD Codes: I10 - Essential (primary) hypertension SNOMED: 19550904 (5) Malnutrition ICD Codes: E46 - Unspecified protein-calorie malnutrition SNOMED: 76685997 (6) Hypoxia ICD Codes: R09.02 - Hypoxemia; J12.89 - Other viral pneumonia SNOMED: 336857364 Status: unchanged Assessment/Plan: pt diet abx o2 pulm tx cbc bmp am Melo Yun DO Jun 30, 2020 09:12
--- NOTE | 2020-06-30 10:48 | Infectious Diseases Prog Note ---
Assessment/Plan Assessment/Plan antibiotics : vancomycin iv A 1. pneumonia on 6 liters O2, saturation 94 percent COVID 19 rapid testt negative 2. staph sepsis 3. diabetes mellitus 4. hypertension P 1. continue iv vancomycin 2. start decadron 3. will follow up cultures 4. COVID 19 PCR pending 5. continue isolation Subjective Constitutional: Denies: fever, chills Respiratory: Reports: shortness of breath, dry cough - decreased, other - sore throat Gastrointestinal/Abdominal: Denies: nausea, vomiting, diarrhea Musculoskeletal: Denies: pain Allergies: Coded Allergies: No Known Allergies (Unverified , 07/11/18) Objective Last 24 Hour Vital Signs Date Time Temp Pulse Resp B/P (MAP) Pulse Ox O2 Delivery O2 Flow Rate FiO2 06/30/20 09:00 Simple Mask 6.0 06/30/20 08:00 96.1 92 20 141/83 (102) 94 06/30/20 08:00 92 06/30/20 04:00 97.4 94 20 125/79 (94) 98 06/30/20 04:00 79 06/30/20 00:00 83 06/30/20 00:00 97.9 96 20 129/85 (100) 99 06/29/20 21:00 Simple Mask 6.0 06/29/20 20:00 98 06/29/20 20:00 98.1 96 20 121/77 (92) 97 06/29/20 16:00 98.1 87 20 123/79 (94) 97 06/29/20 16:00 Simple Mask 6.0 06/29/20 16:00 93 06/29/20 12:00 97.5 98 20 117/71 (86) 95 06/29/20 12:00 89 Height (Feet): 5 Height (Inches): 7.00 Weight (Pounds): 155 Microbiology Date/Time Source Procedure Growth Status 06/28/20 13:45 Nasopharynx SARS-CoV-2 RdRp Gene Assay - Final Complete 06/28/20 13:15 Blood Blood Culture - Preliminary Staphylococcus Species Resulted 06/28/20 13:00 Blood Blood Culture - Preliminary NO GROWTH AFTER 24 HOURS Resulted Laboratory Tests Test 06/29/20 20:06 06/30/20 04:59 06/30/20 06:00 POC Whole Blood Glucose 303 MG/DL (74-106) H 316 MG/DL (74-106) H White Blood Count 11.5 K/UL (4.8-10.8) #H Red Blood Count 4.69 M/UL (4.70-6.10) L Hemoglobin 15.6 G/DL (14.2-18.0) Hematocrit 42.9 % (42.0-52.0) Mean Corpuscular Volume 91 FL (80-99) Mean Corpuscular Hemoglobin 33.2 PG (27.0-31.0) H Mean Corpuscular Hemoglobin Concent 36.4 G/DL (32.0-36.0) H Red Cell Distribution Width 12.7 % (11.6-14.8) Platelet Count 156 K/UL (150-450) Mean Platelet Volume 8.2 FL (6.5-10.1) Neutrophils (%) (Auto) % (45.0-75.0) Lymphocytes (%) (Auto) % (20.0-45.0) Monocytes (%) (Auto) % (1.0-10.0) Eosinophils (%) (Auto) % (0.0-3.0) Basophils (%) (Auto) % (0.0-2.0) Neutrophils % (Manual) Pending Lymphocytes % (Manual) Pending Platelet Estimate Pending Platelet Morphology Pending Sodium Level 136 MMOL/L (136-145) Potassium Level 4.5 MMOL/L (3.5-5.1) Chloride Level 103 MMOL/L (98-107) Carbon Dioxide Level 24 MMOL/L (21-32) Anion Gap 9 mmol/L (5-15) Blood Urea Nitrogen 13 mg/dL (7-18) Creatinine 0.6 MG/DL (0.55-1.30) Estimat Glomerular Filtration Rate > 60 mL/min (>60) Glucose Level 214 MG/DL (74-106) H Calcium Level 8.0 MG/DL (8.5-10.1) L Current Medications Medications (Trade) Dose Ordered Sig/Sunshine Route PRN Reason Start Time Stop Time Status Last Admin Dose Admin Acetaminophen (Tylenol) 650 mg Q6H PRN ORAL Pain 0-4/10 or Temp >100.4 F 06/29/20 04:15 07/29/20 04:14 Albuterol/ Ipratropium (Combivent Respimat) 1 puff Q6H PRN INH coughing/SOB 06/29/20 07:00 07/29/20 06:59 Dextrose (Dextrose 50%) 25 ml Q30M PRN IV Hypoglycemia 06/29/20 18:30 09/27/20 18:29 Dextrose (Dextrose 50%) 50 ml Q30M PRN IV Hypoglycemia 06/29/20 18:30 09/27/20 18:29 Guaifenesin/ Dextromethorphan (Robitussin DM Syrup) 10 ml Q4H PRN ORAL For Cough 06/29/20 04:15 09/27/20 04:14 06/29/20 10:52 Heparin Sodium (Porcine) (Heparin 5000 units/ml) 5,000 units EVERY 12 HOURS SUBQ 06/29/20 09:00 08/13/20 08:59 06/30/20 09:06 Insulin Aspart (NovoLOG) BEFORE MEALS AND HS SUBQ 06/29/20 06:30 09/27/20 06:29 06/30/20 06:14 Insulin Aspart (NovoLOG) 12 units NOVOTIAC SUBQ 06/30/20 11:50 09/27/20 18:29 Insulin Detemir (Levemir) 20 units BID SUBQ 06/30/20 09:00 09/27/20 20:59 06/30/20 09:12 Morphine Sulfate (Morphine Sulfate) 2 mg Q4H PRN IVP For Pain Scale 5-10 06/29/20 04:15 07/06/20 04:14 Ondansetron HCl (Zofran) 4 mg Q6H PRN IVP Nausea & Vomiting 06/29/20 04:15 07/29/20 04:14 Sodium Chloride 1,000 ml @ 60 mls/hr [id number] IV 06/29/20 05:30 07/29/20 05:29 06/29/20 23:01 Vancomycin HCl (Vanco pharmacy to dose) 1 ea DAILY PRN MISC . 06/29/20 16:30 07/29/20 15:29 Vancomycin HCl 750 mg/Sodium Chloride 275 ml @ 183.333 mls/hr Q8HR IVPB 06/29/20 23:00 07/04/20 22:59 06/30/20 05:03 Navarro Zuñiga MD Jun 30, 2020 10:48
[2020-06-30 12:00] VITALS: BP 128/87
--- NOTE | 2020-06-30 13:49 | NUR ---
P.T Note: P.T evaluation completed. Pt is alert O x 4 , pleasant and cooperative. NO c/o pain but mild SOB upon exertion. Pt is independent in all areas ADL/functional mobilities and gait/ambulation despite O2 desaturation at room air . Current functional status does not warrant skilled P.T service at this time. Pt educated on importance of OOB activities and instructed on energy conservation tech as well as proper breathing ex's thru PLB and Deep breathing tech. Pt verbalized understanding and able to return demonstration. DC P.T service. Thank you for this referral. Addendum: 06/30/20 at 1350 by NEIL LOPEZ PT Amended: Links added.
[2020-06-30 16:00] VITALS: BP 130/83
--- NOTE | 2020-06-30 16:19 | Pulmonology Progress Note ---
Subjective ROS Limited/Unobtainable: Yes Interval Events: None new Constitutional: Denies: fever, chills HEENT: Repors: no symptoms Respiratory: Reports: dry cough Cardiovascular: Reports: no symptoms Gastrointestinal/Abdominal: Denies: nausea, vomiting, diarrhea Musculoskeletal: Denies: pain Allergies: Coded Allergies: No Known Allergies (Unverified , 07/11/18) All Systems: reviewed and negative except above Objective Last 24 Hour Vital Signs Date Time Temp Pulse Resp B/P (MAP) Pulse Ox O2 Delivery O2 Flow Rate FiO2 06/30/20 12:00 87 06/30/20 12:00 98.4 91 20 128/87 (101) 92 06/30/20 09:00 Simple Mask 6.0 06/30/20 08:00 96.1 92 20 141/83 (102) 94 06/30/20 08:00 92 06/30/20 04:00 97.4 94 20 125/79 (94) 98 06/30/20 04:00 79 06/30/20 00:00 83 06/30/20 00:00 97.9 96 20 129/85 (100) 99 06/29/20 21:00 Simple Mask 6.0 06/29/20 20:00 98 06/29/20 20:00 98.1 96 20 121/77 (92) 97 Intake and Output 06/29/20 06/30/20 19:00 07:00 Intake Total 400 ml 200 ml Output Total 1250 ml 1100 ml Balance -850 ml -900 ml Intake Oral 400 ml 200 ml Output Urine Total 1250 ml 1100 ml # Voids 3 3 Objective 06/30/2020 saturating 96% on 6 lpm simple face mask; pt subjectively feels better 06/29/2020 pt in bed; saturating 97% on 6 lpm simple face mask General Appearance: WD/WN, no acute distress HEENT: normocephalic Respiratory: chest wall non-tender, lungs clear, normal breath sounds Cardiovascular: normal rate, regular rhythm, no gallop/murmur Microbiology Date/Time Source Procedure Growth Status 06/28/20 13:45 Nasopharynx SARS-CoV-2 RdRp Gene Assay - Final Complete 06/28/20 13:15 Blood Blood Culture - Preliminary Staphylococcus Species Resulted 06/28/20 13:00 Blood Blood Culture - Preliminary NO GROWTH AFTER 24 HOURS Resulted Laboratory Tests 06/29/20 20:06: POC Whole Blood Glucose 303H 06/30/20 04:59: POC Whole Blood Glucose 316H 06/30/20 06:00: White Blood Count 11.5#H, Red Blood Count 4.69L, Hemoglobin 15.6, Hematocrit 42.9, Mean Corpuscular Volume 91, Mean Corpuscular Hemoglobin 33.2H, Mean Corpuscular Hemoglobin Concent 36.4H, Red Cell Distribution Width 12.7, Platelet Count 156, Mean Platelet Volume 8.2, Neutrophils (%) (Auto) , Lymphocytes (%) (Auto) , Monocytes (%) (Auto) , Eosinophils (%) (Auto) , Basophils (%) (Auto) , Differential Total Cells Counted 100, Neutrophils % (Manual) 85H, Lymphocytes % (Manual) 11L, Monocytes % (Manual) 4, Eosinophils % (Manual) 0, Basophils % (Manual) 0, Band Neutrophils 0, Platelet Estimate Adequate, Platelet Morphology , Giant Platelets Occasional, Sodium Level 136, Potassium Level 4.5, Chloride Level 103, Carbon Dioxide Level 24, Anion Gap 9, Blood Urea Nitrogen 13, Creatinine 0.6, Estimat Glomerular Filtration Rate > 60, Glucose Level 214H, Calcium Level 8.0L 06/30/20 11:50: POC Whole Blood Glucose 215H Current Medications Medications (Trade) Dose Ordered Sig/Sunshine Route PRN Reason Start Time Stop Time Status Last Admin Dose Admin Acetaminophen (Tylenol) 650 mg Q6H PRN ORAL Pain 0-4/10 or Temp >100.4 F 06/29/20 04:15 07/29/20 04:14 Albuterol/ Ipratropium (Combivent Respimat) 1 puff Q6H PRN INH coughing/SOB 06/29/20 07:00 07/29/20 06:59 Dexamethasone (Decadron) 6 mg DAILY ORAL 06/30/20 10:49 07/09/20 09:01 06/30/20 10:59 Dextrose (Dextrose 50%) 25 ml Q30M PRN IV Hypoglycemia 06/29/20 18:30 09/27/20 18:29 Dextrose (Dextrose 50%) 50 ml Q30M PRN IV Hypoglycemia 06/29/20 18:30 09/27/20 18:29 Guaifenesin/ Dextromethorphan (Robitussin DM Syrup) 10 ml Q4H PRN ORAL For Cough 06/29/20 04:15 09/27/20 04:14 06/29/20 10:52 Heparin Sodium (Porcine) (Heparin 5000 units/ml) 5,000 units EVERY 12 HOURS SUBQ 06/29/20 09:00 08/13/20 08:59 06/30/20 09:06 Insulin Aspart (NovoLOG) BEFORE MEALS AND HS SUBQ 06/29/20 06:30 09/27/20 06:29 06/30/20 11:56 Insulin Aspart (NovoLOG) 12 units NOVOTIAC SUBQ 06/30/20 11:50 09/27/20 18:29 06/30/20 11:57 Insulin Detemir (Levemir) 20 units BID SUBQ 06/30/20 09:00 09/27/20 20:59 06/30/20 09:12 Morphine Sulfate (Morphine Sulfate) 2 mg Q4H PRN IVP For Pain Scale 5-10 06/29/20 04:15 07/06/20 04:14 Ondansetron HCl (Zofran) 4 mg Q6H PRN IVP Nausea & Vomiting 06/29/20 04:15 07/29/20 04:14 Sodium Chloride 1,000 ml @ 60 mls/hr [id number] IV 06/29/20 05:30 07/29/20 05:29 06/30/20 14:45 Vancomycin HCl (Vanco pharmacy to dose) 1 ea DAILY PRN MISC . 06/29/20 16:30 07/29/20 15:29 Vancomycin HCl 750 mg/Sodium Chloride 275 ml @ 183.333 mls/hr Q8HR IVPB 06/29/20 23:00 07/04/20 22:59 06/30/20 13:36 Assessment/Plan Assessment/Plan 1. Bilateral pulmonary infiltrates, high suspicion for COVID-19 pneumonia. - on dexamethasone - empiric Abx - currently on 6 lpm NC saturating 97% - 06/28/2020 COVID-19 test neg 2. Elevated inflammatory markers. 3. Negative initial rapid gene testing for COVID-19. 4. Hx of hypertension. 5. Diabetes mellitus. - on glucose-lowering agents 6. Fever. - resolved 7. Bacteremia - on Abx We will follow carefully. The care for this patient was discussed with my supervising physician Time spent for this case was approximately 31 minutes Zhen Lebron Jun 30, 2020 16:19
--- NOTE | 2020-06-30 19:31 | NUR ---
NURSE HAND-OFF REPORT: Important Events on Shift:Pt still SOB on exertion Patient Status: Stable Diet: Low sodium diet, CCHO medium Pending Orders: Pending Results/Labs: Pending MD notification: Latest Vital Signs: Temperature 98.1 , Pulse 81 , B/P 130 /83 , Respiratory Rate 20 , O2 SAT 93 , Simple Mask, O2 Flow Rate 6.0 . Vital Sign Comment: Stable EKG Rhythm: Sinus Rhythm Rhythm change?: N MD Notified?: - MD Response: Latest Stafford Fall Score: 20 Fall Risk: Low Risk Safety Measures: Call light Within Reach, Bed Alarm Zone 2, Side Rails Side Rails x2, Bed position Low and Locked. Fall Precautions: Yellow Socks Yellow Gown Patient Fall Education Report given to Carl/ALICIA.
--- NOTE | 2020-06-30 19:32 | NUR ---
NURSE NOTES: Received report from Amina RN; pt AOX4; able to verbalize needs; on O2 therapy 6L/min via simple face mask; in no acute distress; denies any pain nor discomfort; bed locked and in low position; call light within reach; side rails x 2; will continue to monitor.
[2020-06-30 20:00] VITALS: BP 145/88
[2020-07-01] VITALS: BP 136/81
[2020-07-01 04:00] VITALS: BP 141/88
[2020-07-01 04:40] LABS: BASOPHILS % (AUTO) 0.5 % (0.0-2.0); HEMATOCRIT 42.1 % (42.0-52.0); LYMPHOCYTES % (AUTO) 10.9 % (20.0-45.0); MEAN CORPUSCULAR VOLUME 90 FL (80-99); MONOCYTES % (AUTO) 5.1 % (1.0-10.0); NEUTROPHILS % (AUTO) 83.5 % (45.0-75.0); PLATELET COUNT 187 K/UL (150-450); RED BLOOD COUNT 4.66 M/UL (4.70-6.10); WHITE BLOOD COUNT 8.5 K/UL (4.8-10.8)
[2020-07-01 04:59] LABS: ANION GAP 6 mmol/L (5-15); BLOOD UREA NITROGEN 10 mg/dL (7-18); CALCIUM 8.1 MG/DL (8.5-10.1); CARBON DIOXIDE 26 MMOL/L (21-32); CHLORIDE 105 MMOL/L (98-107); CREATININE 0.5 MG/DL (0.55-1.30); POTASSIUM 3.8 MMOL/L (3.5-5.1); SODIUM 136 MMOL/L (136-145)
[2020-07-01] MEDS: Vancomycin 750mg/NS 275ml IVPB SCH ×6 (06:08→22:14)
[2020-07-01] MEDS: NovoLOG Insulin Flexpen SUBQ SCH ×7 (06:22→20:53)
--- NOTE | 2020-07-01 07:10 | NUR ---
NURSE HAND-OFF REPORT: Important Events on Shift: Asleep most of the shift; continue same dose of vanco per pharmacy based on vanco trough results; accucheck ACHS no insulin given @ 0630 d/t BS 83 mg/dl Patient Status: AOX4 hungarian speaking, stable in bed, comfortable Diet: CCHO medium, low sodium diet, thin liquids Pending Orders: N Pending Results/Labs: morning labs Pending MD notification: N Latest Vital Signs: Temperature 97.6 , Pulse 73 , B/P 141 /88 , Respiratory Rate 20 , O2 SAT 97 , Simple Mask, O2 Flow Rate 6.0 . Vital Sign Comment: stable EKG Rhythm: Sinus Rhythm Rhythm change?: N MD Notified?: - MD Response: Latest Stafford Fall Score: 20 Fall Risk: Low Risk Safety Measures: Call light Within Reach, Bed Alarm Zone 2, Side Rails Side Rails x2, Bed position Low and Locked. Fall Precautions: Yellow Socks Yellow Gown Patient Fall Education Report given to ALICIA Awad.
--- NOTE | 2020-07-01 07:31 | NUR ---
NURSE NOTES: Received report from ALICIA Cartagena. Pt is resting in bed, stable on simple face mask at 6LPM. Pt unlabored and even breathing. no s/s or complaint of distress at this time. Pt IV on RAC20g SL, asymptomatic and intact. RFA 22g running fluid at 60cc, asymptomatic and intact. skin intact. Pt bed low and locked, call light in reach and bed alarm on.
[2020-07-01 08:00] VITALS: BP 150/85
[2020-07-01] MEDS: Heparin 5000 units/ml inj SUBQ SCH ×2 (08:07→20:53)
[2020-07-01] MEDS: Levemir Flexpen SUBQ SCH ×2 (08:22→17:04)
--- NOTE | 2020-07-01 08:46 | General Progress Note ---
Subjective Constitutional: Reports: weakness Allergies: Coded Allergies: No Known Allergies (Unverified , 07/11/18) All Systems: reviewed and negative except above Subjective calm in bed Objective Last 24 Hour Vital Signs Date Time Temp Pulse Resp B/P (MAP) Pulse Ox O2 Delivery O2 Flow Rate FiO2 07/01/20 04:00 82 07/01/20 04:00 97.6 73 20 141/88 (105) 97 07/01/20 00:00 66 07/01/20 00:00 97.0 74 20 136/81 (99) 97 06/30/20 21:00 Simple Mask 6.0 06/30/20 20:00 75 06/30/20 20:00 96.8 71 20 145/88 (107) 93 06/30/20 16:00 81 06/30/20 16:00 98.1 92 20 130/83 (99) 93 06/30/20 12:00 87 06/30/20 12:00 98.4 91 20 128/87 (101) 92 06/30/20 09:00 Simple Mask 6.0 Intake and Output 06/30/20 07/01/20 19:00 07:00 Intake Total 1115.000 ml 480 ml Output Total 900 ml 600 ml Balance 215.000 ml -120 ml Intake Oral 600 ml 480 ml IV Total 515.000 ml Output Urine Total 900 ml 600 ml # Voids 3 Laboratory Tests 06/30/20 11:50: POC Whole Blood Glucose 215H 06/30/20 16:38: POC Whole Blood Glucose 210H 06/30/20 21:30: Vancomycin Level Trough 16.4H 07/01/20 04:00: White Blood Count 8.5, Red Blood Count 4.66L, Hemoglobin 16.0, Hematocrit 42.1, Mean Corpuscular Volume 90, Mean Corpuscular Hemoglobin 34.2H, Mean Corpuscular Hemoglobin Concent 37.9H, Red Cell Distribution Width 12.0, Platelet Count 187, Mean Platelet Volume 9.3, Neutrophils (%) (Auto) 83.5H, Lymphocytes (%) (Auto) 10.9L, Monocytes (%) (Auto) 5.1, Eosinophils (%) (Auto) 0.0, Basophils (%) (Auto) 0.5, Sodium Level 136, Potassium Level 3.8, Chloride Level 105, Carbon Dioxide Level 26, Anion Gap 6, Blood Urea Nitrogen 10, Creatinine 0.5L, Estimat Glomerular Filtration Rate > 60, Glucose Level 89#, Calcium Level 8.1L 07/01/20 06:16: POC Whole Blood Glucose 83 07/01/20 08:17: POC Whole Blood Glucose 92 Height (Feet): 5 Height (Inches): 7.00 Weight (Pounds): 155 General Appearance: lethargic EENT: normal ENT inspection Neck: normal alignment Cardiovascular: normal peripheral pulses, normal rate, regular rhythm Respiratory/Chest: chest wall non-tender, lungs clear, normal breath sounds Abdomen: normal bowel sounds, non tender, soft Extremities: normal inspection Edema: no edema noted Arm (L), no edema noted Arm (R), no edema noted Leg (L), no edema noted Leg (R), no edema noted Pedal (L), no edema noted Pedal (R), no edema noted Generalized 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 Skin: normal pigmentation, warm/dry Assessment/Plan Problem List: (1) Pneumonia ICD Codes: J18.9 - Pneumonia, unspecified organism SNOMED: 765681005 (2) UTI (urinary tract infection) ICD Codes: N39.0 - Urinary tract infection, site not specified SNOMED: 51965814 (3) Diabetes ICD Codes: E11.9 - Type 2 diabetes mellitus without complications SNOMED: 08242316 (4) HTN (hypertension) ICD Codes: I10 - Essential (primary) hypertension SNOMED: 45910139 (5) Malnutrition ICD Codes: E46 - Unspecified protein-calorie malnutrition SNOMED: 74910261 (6) Hypoxia ICD Codes: R09.02 - Hypoxemia; J12.89 - Other viral pneumonia SNOMED: 212767477 Status: stable, progressing Assessment/Plan: pt diet abx o2 pulm tx cbc bmp am dc plan if all clear Melo Yun DO Jul 01, 2020 08:46
[2020-07-01 11:43] VITALS: BP 142/76
--- NOTE | 2020-07-01 14:59 | Pulmonology Progress Note ---
Subjective ROS Limited/Unobtainable: Yes Interval Events: None new Constitutional: Denies: fever, chills HEENT: Repors: no symptoms Respiratory: Reports: dry cough Cardiovascular: Reports: no symptoms Gastrointestinal/Abdominal: Denies: nausea, vomiting, diarrhea Musculoskeletal: Denies: pain Allergies: Coded Allergies: No Known Allergies (Unverified , 07/11/18) All Systems: reviewed and negative except above Objective Last 24 Hour Vital Signs Date Time Temp Pulse Resp B/P (MAP) Pulse Ox O2 Delivery O2 Flow Rate FiO2 07/01/20 12:00 79 07/01/20 11:43 97.7 71 21 142/76 (98) 92 07/01/20 09:00 Simple Mask 6.0 07/01/20 08:00 96.9 75 22 150/85 (106) 93 07/01/20 08:00 76 07/01/20 04:00 82 07/01/20 04:00 97.6 73 20 141/88 (105) 97 07/01/20 00:00 66 07/01/20 00:00 97.0 74 20 136/81 (99) 97 06/30/20 21:00 Simple Mask 6.0 06/30/20 20:00 75 06/30/20 20:00 96.8 71 20 145/88 (107) 93 06/30/20 16:00 81 06/30/20 16:00 98.1 92 20 130/83 (99) 93 Intake and Output 06/30/20 07/01/20 18:59 06:59 Intake Total 1115.000 ml 480 ml Output Total 900 ml 600 ml Balance 215.000 ml -120 ml Intake Oral 600 ml 480 ml IV Total 515.000 ml Output Urine Total 900 ml 600 ml # Voids 3 Objective 07/01/2020 per RN pt saturating at low 90s with 6 lpm oxygen simple face mask 06/30/2020 saturating 96% on 6 lpm simple face mask; pt subjectively feels better 06/29/2020 pt in bed; saturating 97% on 6 lpm simple face mask General Appearance: WD/WN, no acute distress HEENT: normocephalic Respiratory: chest wall non-tender, lungs clear, normal breath sounds Cardiovascular: normal rate, regular rhythm, no gallop/murmur Laboratory Tests 06/30/20 16:38: POC Whole Blood Glucose 210H 12/11/20 21:30: Vancomycin Level Trough 16.4H 07/01/20 04:00: White Blood Count 8.5, Red Blood Count 4.66L, Hemoglobin 16.0, Hematocrit 42.1, Mean Corpuscular Volume 90, Mean Corpuscular Hemoglobin 34.2H, Mean Corpuscular Hemoglobin Concent 37.9H, Red Cell Distribution Width 12.0, Platelet Count 187, Mean Platelet Volume 9.3, Neutrophils (%) (Auto) 83.5H, Lymphocytes (%) (Auto) 10.9L, Monocytes (%) (Auto) 5.1, Eosinophils (%) (Auto) 0.0, Basophils (%) (Auto) 0.5, Sodium Level 136, Potassium Level 3.8, Chloride Level 105, Carbon Dioxide Level 26, Anion Gap 6, Blood Urea Nitrogen 10, Creatinine 0.5L, Estimat Glomerular Filtration Rate > 60, Glucose Level 89#, Calcium Level 8.1L 07/01/20 06:16: POC Whole Blood Glucose 83 07/01/20 08:17: POC Whole Blood Glucose 92 Current Medications Medications (Trade) Dose Ordered Sig/Sunshine Route PRN Reason Start Time Stop Time Status Last Admin Dose Admin Acetaminophen (Tylenol) 650 mg Q6H PRN ORAL Pain 0-4/10 or Temp >100.4 F 06/29/20 04:15 07/29/20 04:14 Albuterol/ Ipratropium (Combivent Respimat) 1 puff Q6H PRN INH coughing/SOB 06/29/20 07:00 07/29/20 06:59 Dexamethasone (Decadron) 6 mg DAILY ORAL 06/30/20 10:49 07/09/20 09:01 07/01/20 08:06 Dextrose (Dextrose 50%) 25 ml Q30M PRN IV Hypoglycemia 06/29/20 18:30 09/27/20 18:29 Dextrose (Dextrose 50%) 50 ml Q30M PRN IV Hypoglycemia 06/29/20 18:30 09/27/20 18:29 Guaifenesin/ Dextromethorphan (Robitussin DM Syrup) 10 ml Q4H PRN ORAL For Cough 06/29/20 04:15 09/27/20 04:14 06/29/20 10:52 Heparin Sodium (Porcine) (Heparin 5000 units/ml) 5,000 units EVERY 12 HOURS SUBQ 06/29/20 09:00 08/13/20 08:59 07/01/20 08:07 Insulin Aspart (NovoLOG) BEFORE MEALS AND HS SUBQ 06/29/20 06:30 09/27/20 06:29 07/01/20 11:49 Insulin Aspart (NovoLOG) 12 units NOVOTIAC SUBQ 06/30/20 11:50 09/27/20 18:29 07/01/20 11:51 Insulin Detemir (Levemir) 20 units BID SUBQ 06/30/20 09:00 09/27/20 20:59 07/01/20 08:22 Morphine Sulfate (Morphine Sulfate) 2 mg Q4H PRN IVP For Pain Scale 5-10 06/29/20 04:15 07/06/20 04:14 Ondansetron HCl (Zofran) 4 mg Q6H PRN IVP Nausea & Vomiting 06/29/20 04:15 07/29/20 04:14 Sodium Chloride 1,000 ml @ 60 mls/hr [id number] IV 06/29/20 05:30 07/29/20 05:29 07/01/20 08:06 Vancomycin HCl (Vanco pharmacy to dose) 1 ea DAILY PRN MISC . 06/29/20 16:30 07/29/20 15:29 Vancomycin HCl 750 mg/Sodium Chloride 275 ml @ 183.333 mls/hr Q8HR IVPB 06/29/20 23:00 07/04/20 22:59 07/01/20 13:47 Assessment/Plan Assessment/Plan 1. Bilateral pulmonary infiltrates, high suspicion for COVID-19 pneumonia. - on dexamethasone - empiric Abx - currently on 6 lpm NC saturating 97%; continue weaning down as tolerated - 06/28/2020 COVID-19 test neg 2. Elevated inflammatory markers. 3. Negative initial rapid gene testing for COVID-19. 4. Hx of hypertension. 5. Diabetes mellitus. - on glucose-lowering agents 6. Fever. - resolved 7. Bacteremia - on Abx We will follow carefully. The care for this patient was discussed with my supervising physician Time spent for this case was approximately 31 minutesThe patient was seen and examined at bedside and all new and available data was reviewed in the patients chart. I agree with the above findings, impression, and plan. (Patient was seen earlier today. Signature timestamp does not reflect patient encounter time) Zhen Austin MD Jul 01, 2020 14:59 Eloy Garg MD Jul 01, 2020 18:11
--- NOTE | 2020-07-01 15:05 | NUR ---
CASE MANAGEMENT:REVIEW 07/01/20 SI: LUIS A PNA. BACTEREMIA 96.9 75 22 150/85 93% ON 6L/MASK IS: IV VANCOMYCIN Q8HRS IVF@60/HR INSULIN SQ BID DECADRON PO QD HEPARIN SQ Q12 : TELEMETRY DCP FROM HOME
[2020-07-01] MEDS ORDERED: 1/2 NS 1000ml IV ONE (15:35)
[2020-07-01 16:00] VITALS: BP 138/77
--- NOTE | 2020-07-01 16:09 | NUR ---
NURSE NOTES: Per CINTIA Dominguez to titrate Pt down face mask. titrated Pt from 6LPM to 5LPM simple face masl. Pt 94% spo2, unlabored, even breathing, 17RR. pt education regarding titration and verbalized understanding to call for help if SOB or any discomfort. pt verbalized understanding. call light in reach. Pt stable, Addendum: 07/01/20 at 1640 by Delmi Beth RN RN Pt is now on 4LPM, same education provided. no complaints at this time. Pt verbalized understanding and call light in reach. spo2 94% on 4LPM NC, unlabored even breathing 18RR
[2020-07-01] MEDS: guaiFENesin /DM 10ml syrup ORAL PRN (16:45)
--- NOTE | 2020-07-01 18:00 | NUR ---
NURSE NOTES: Cough syrup given for Pts cough. Pt reports feeling better after, less pain and decreased coughing.
--- NOTE | 2020-07-01 18:44 | NUR ---
NURSE HAND-OFF REPORT: Important Events on Shift:[] Patient Status: [] Diet: [] Pending Orders: [] Pending Results/Labs:[] Pending MD notification:[] Latest Vital Signs: Temperature 97.7 , Pulse 77 , B/P 138 /77 , Respiratory Rate 18 , O2 SAT 94 , Simple Mask, O2 Flow Rate 6.0 . Vital Sign Comment: [] EKG Rhythm: Sinus Rhythm Rhythm change?: N Notified?: - MD Response: Latest Stafford Fall Score: 20 Fall Risk: Low Risk Safety Measures: Call light Within Reach, Bed Alarm Zone 2, Side Rails Side Rails x2, Bed position Low and Locked. Fall Precautions: Yellow Socks Yellow Gown Patient Fall Education Report given to []. Addendum: 07/01/20 at 1844 by Delmi Beth RN RN NURSE HAND-OFF REPORT: Important Events on Shift:[] Patient Status: [] Diet: [] Pending Orders: [] Pending Results/Labs:[] Pending MD notification:[] Latest Vital Signs: Temperature 97.7 , Pulse 77 , B/P 138 /77 , Respiratory Rate 18 , O2 SAT 94 , Simple Mask, O2 Flow Rate 6.0 . Vital Sign Comment: [] EKG Rhythm: Sinus Rhythm Rhythm change?: N Notified?: - MD Response: Latest Stafford Fall Score: 20 Fall Risk: Low Risk Safety Measures: Call light Within Reach, Bed Alarm Zone 2, Side Rails Side Rails x2, Bed position Low and Locked. Fall Precautions: Yellow Socks Yellow Gown Patient Fall Education Report given to []. Addendum: 07/01/20 at 1846 by Delmi Beth RN RN NURSE HAND-OFF REPORT: Important Events on Shift: Titrate O2 jose r to 4 LPM simple face mask per Vi CHAMBERLAIN-tolerating well, cough-cough syrup given, d/c planning per Dr Samson vasquez to go after clearance from ID and pulm Patient Status: fc, stable Diet: low sodium ccho med Pending Orders: Pending Results/Labs: Pending MD notification: Latest Vital Signs: Temperature 97.7 , Pulse 77 , B/P 138 /77 , Respiratory Rate 18 , O2 SAT 94 , Simple Mask, O2 Flow Rate 6.0 . Vital Sign Comment: EKG Rhythm: Sinus Rhythm Rhythm change?: N Notified?: - MD Response: Latest Stafford Fall Score: 20 Fall Risk: Low Risk Safety Measures: Call light Within Reach, Bed Alarm Zone 2, Side Rails Side Rails x2, Bed position Low and Locked. Fall Precautions: Yellow Socks Yellow Gown Patient Fall Education Report to be given. Addendum: 07/01/20 at 1947 by Delmi Beth RN RN Pt is stable, report and plan of care endorsed to ALICIA Ny.
--- NOTE | 2020-07-01 19:00 | NUR ---
NURSE NOTES: Patient received from ALICIA Awad. Patient is awake, alert and oriented x 4. Patient is able to verbalize her needs, no complaints as of the moment. Patient is on a simple face mask at 4 L with no signs of acute respiratory distress noted. Patient has a urinal at his bedside. Patient has a 20 gauge IV on her right AC running 1/2 NS at 60 ml/hr. Bed is in the lowest position and locked, call light within reach. Will continue to monitor.
[2020-07-01 20:00] VITALS: BP 146/80
[2020-07-02] VITALS: BP 146/90
[2020-07-02 04:00] VITALS: BP 137/78
[2020-07-02] MEDS: guaiFENesin /DM 10ml syrup ORAL PRN (04:58)
[2020-07-02] MEDS: NovoLOG Insulin Flexpen SUBQ SCH ×7 (05:46→21:00)
[2020-07-02] MEDS: Vancomycin 750mg/NS 275ml IVPB SCH ×6 (05:56→21:56)
--- NOTE | 2020-07-02 07:40 | NUR ---
NURSE HAND-OFF REPORT: Important Events on Shift:[Unable to weigh patient, informed charge nurse. Endorsed to morning shift. Patient able to ambulate may need assistance] Patient Status: [Stable] Diet: [Low Sodium CCHO Medium] Pending Orders: [] Pending Results/Labs:[] Pending MD notification:[] Latest Vital Signs: Temperature 97.5 , Pulse 77 , B/P 137 /78 , Respiratory Rate 18 , O2 SAT 94 , Simple Mask, O2 Flow Rate 6.0 . Vital Sign Comment: [] EKG Rhythm: Sinus Rhythm Rhythm change?: N MD Notified?: - MD Response: Latest Stafford Fall Score: 20 Fall Risk: Low Risk Safety Measures: Call light Within Reach, Bed Alarm Zone 2, Side Rails Side Rails x2, Bed position Low and Locked. Fall Precautions: Yellow Socks Yellow Gown Patient Fall Education Report given to [ALICIA Dumont].
[2020-07-02 08:00] VITALS: BP 139/91
--- NOTE | 2020-07-02 08:23 | NUR ---
NURSE NOTES: Received report from Yanely Robbins RN. Patient sitting up in bed, awake and alert, watching television, on simple mask at 5L oxygen saturating at 94%, bed in lowest position, call light within reach, wheels locked, side rails up x 2, urinal at bedside, in no apparent distress.
--- NOTE | 2020-07-02 09:18 | General Progress Note ---
Subjective Constitutional: Reports: weakness Allergies: Coded Allergies: No Known Allergies (Unverified , 07/11/18) All Systems: reviewed and negative except above Subjective calm in bed Objective Last 24 Hour Vital Signs Date Time Temp Pulse Resp B/P (MAP) Pulse Ox O2 Delivery O2 Flow Rate FiO2 07/02/20 04:00 71 07/02/20 04:00 97.5 77 18 137/78 (97) 94 07/02/20 00:00 97.5 77 22 146/90 (108) 92 07/01/20 21:00 Simple Mask 6.0 07/01/20 20:00 78 07/01/20 20:00 98.1 79 20 146/80 (102) 93 07/01/20 16:00 77 07/01/20 16:00 97.7 83 18 138/77 (97) 94 07/01/20 12:00 79 07/01/20 11:43 97.7 71 21 142/76 (98) 92 Intake and Output 07/01/20 07/02/20 19:00 07:00 Intake Total 1000 ml 240 ml Output Total 1200 ml 1500 ml Balance -200 ml -1260 ml Intake Oral 1000 ml 240 ml Output Urine Total 1200 ml 1500 ml # Voids 4 4 Height (Feet): 5 Height (Inches): 7.00 Weight (Pounds): 155 General Appearance: lethargic EENT: normal ENT inspection Neck: normal alignment Cardiovascular: normal peripheral pulses, normal rate, regular rhythm Respiratory/Chest: chest wall non-tender, lungs clear, normal breath sounds Abdomen: normal bowel sounds, non tender, soft Extremities: normal inspection Edema: no edema noted Arm (L), no edema noted Arm (R), no edema noted Leg (L), no edema noted Leg (R), no edema noted Pedal (L), no edema noted Pedal (R), no edema noted Generalized Neurologic: motor weakness Skin: normal pigmentation, warm/dry Assessment/Plan Problem List: (1) Pneumonia ICD Codes: J18.9 - Pneumonia, unspecified organism SNOMED: 085403129 (2) UTI (urinary tract infection) ICD Codes: N39.0 - Urinary tract infection, site not specified SNOMED: 19511730 (3) Diabetes ICD Codes: E11.9 - Type 2 diabetes mellitus without complications SNOMED: 88759448 (4) HTN (hypertension) ICD Codes: I10 - Essential (primary) hypertension SNOMED: 60458647 (5) Malnutrition ICD Codes: E46 - Unspecified protein-calorie malnutrition SNOMED: 21461322 (6) Hypoxia ICD Codes: R09.02 - Hypoxemia; J12.89 - Other viral pneumonia SNOMED: 481914151 Status: stable, progressing Assessment/Plan: pt diet abx o2 pulm tx cbc bmp am dc if all clear Melo Yun DO Jul 02, 2020 09:18
[2020-07-02] MEDS: Heparin 5000 units/ml inj SUBQ SCH ×2 (09:42→21:56)
[2020-07-02] MEDS: Levemir Flexpen SUBQ SCH ×2 (09:54→18:00)
[2020-07-02 09:58] LABS: ANION GAP 8 mmol/L (5-15); BLOOD UREA NITROGEN 9 mg/dL (7-18); CARBON DIOXIDE 27 MMOL/L (21-32); CHLORIDE 102 MMOL/L (98-107); CREATININE 0.7 MG/DL (0.55-1.30); POTASSIUM 3.4 MMOL/L (3.5-5.1); SODIUM 136 MMOL/L (136-145)
[2020-07-02 10:38] LABS: BASOPHILS % (AUTO) 0.5 % (0.0-2.0); EOSINOPHILS % (AUTO) 0.2 % (0.0-3.0); HEMATOCRIT 45.6 % (42.0-52.0); HEMOGLOBIN 16.3 G/DL (14.2-18.0); LYMPHOCYTES % (AUTO) 12.5 % (20.0-45.0); MEAN CORPUSCULAR VOLUME 92 FL (80-99); MONOCYTES % (AUTO) 3.5 % (1.0-10.0); NEUTROPHILS % (AUTO) 83.2 % (45.0-75.0); PLATELET COUNT 192 K/UL (150-450); RED BLOOD COUNT 4.95 M/UL (4.70-6.10); RED CELL DISTRIBUTION WIDTH 11.9 % (11.6-14.8); WHITE BLOOD COUNT 13.2 K/UL (4.8-10.8)
--- NOTE | 2020-07-02 11:06 | NUR ---
RD ASSESSMENT & RECOMMENDATIONS SEE CARE ACTIVITY FOR COMPLETE ASSESSMENT DAILY ESTIMATED NEEDS: Needs based on DM, pulmonary 71kg 25-30 kcals/kg 1840-2271 total kcals 1-1.5 g protein/kg 71-107 g total protein 25-30 mL/kg 7757-8787 total fluid mLs NUTRITION DIAGNOSIS: Altered nutrition related lab values r/t diabetes as evidenced by A1C 6.8, on multiple hypoglycemic agents. CURRENT DIET: Low Na/ CCHO MED PO DIET RECOMMENDATIONS: CCHO MED diet ADDITIONAL RECOMMENDATIONS: 1) Maintain calibrated bed scale wts 2) Accuchecks at night-> monitor for hypoglycemia 3) Monitor for continued good po intake
--- NOTE | 2020-07-02 11:15 | NUR ---
CASE MANAGEMENT:REVIEW 07/02/20 SI: LUIS A PNA. BACTEREMIA 97.9 71 16 139/91 92% % ON 6L/MASK WBC+13.2 K-3.4 IS: IV VANCOMYCIN Q8HRS IVF@60/HR INSULIN SQ BID DECADRON PO QD HEPARIN SQ Q12 : TELEMETRY DCP FROM HOME
--- NOTE | 2020-07-02 11:17 | NUR ---
NURSE NOTES: Patient's SpO2=85 on 5 liters simple mask, [id number] to 8 liters and SpO2=92.
--- NOTE | 2020-07-02 11:21 | NUR ---
NURSE NOTES: Patient's SpO2=85 on 5 liters simple mask, [id number] to 8 liters and SpO2=92. Left message on voicemail of Dr. Eloy Garg.
--- NOTE | 2020-07-02 11:41 | NUR ---
NURSE NOTES: Patient's SpO2=85 on 5 liters simple mask, [id number] to 8 liters and SpO2=92. Notified RT, recommended to increase to 10 liters.
[2020-07-02 12:00] VITALS: BP 133/87
--- NOTE | 2020-07-02 12:40 | NUR ---
NURSE NOTES: Placing patient on 50% Venturi mask.
--- NOTE | 2020-07-02 13:00 | NUR ---
NURSE NOTES: Educated patient to leave the simple mask on, and to breath deep and slow. Notified respiratory therapy a second time to place patient on a venturi mask at 50%. Patient's oxygen saturation at 88 percent. Lunch is served, I instructed patient that when oxygen is >92 percent, take a bite of food and then the mask back on.
--- NOTE | 2020-07-02 14:10 | Pulmonology Progress Note ---
Subjective ROS Limited/Unobtainable: Yes Interval Events: per RN, pt's saturation deeps below 90% on FiO2 50% Constitutional: Denies: fever, chills HEENT: Repors: no symptoms Respiratory: Reports: dry cough Cardiovascular: Reports: no symptoms Gastrointestinal/Abdominal: Denies: nausea, vomiting, diarrhea Musculoskeletal: Denies: pain Allergies: Coded Allergies: No Known Allergies (Unverified , 07/11/18) All Systems: reviewed and negative except above Objective Last 24 Hour Vital Signs Date Time Temp Pulse Resp B/P (MAP) Pulse Ox O2 Delivery O2 Flow Rate FiO2 07/02/20 12:00 98.1 91 16 133/87 (102) 88 07/02/20 12:00 94 07/02/20 09:00 Simple Mask 10.0 07/02/20 08:00 77 07/02/20 08:00 97.9 71 16 139/91 (107) 92 07/02/20 04:00 71 07/02/20 04:00 97.5 77 18 137/78 (97) 94 07/02/20 00:00 97.5 77 22 146/90 (108) 92 07/01/20 21:00 Simple Mask 6.0 07/01/20 20:00 78 07/01/20 20:00 98.1 79 20 146/80 (102) 93 07/01/20 16:00 77 07/01/20 16:00 97.7 83 18 138/77 (97) 94 Intake and Output 07/01/20 07/02/20 19:00 07:00 Intake Total 1000 ml 240 ml Output Total 1200 ml 1500 ml Balance -200 ml -1260 ml Intake Oral 1000 ml 240 ml Output Urine Total 1200 ml 1500 ml # Voids 4 4 Objective 07/02/2020 now at 10 L simple face mask saturating >92% 07/01/2020 per RN pt saturating at low 90s with 6 lpm oxygen simple face mask 06/30/2020 saturating 96% on 6 lpm simple face mask; pt subjectively feels better 06/29/2020 pt in bed; saturating 97% on 6 lpm simple face mask General Appearance: WD/WN, no acute distress HEENT: normocephalic Respiratory: chest wall non-tender, lungs clear, normal breath sounds Cardiovascular: normal rate, regular rhythm, no gallop/murmur Laboratory Tests 07/02/20 04:20: White Blood Count 13.2#H, Red Blood Count 4.95, Hemoglobin 16.3, Hematocrit 45.6, Mean Corpuscular Volume 92, Mean Corpuscular Hemoglobin 32.9H, Mean Corpuscular Hemoglobin Concent 35.7, Red Cell Distribution Width 11.9, Platelet Count 192, Mean Platelet Volume 9.9, Neutrophils (%) (Auto) 83.2H, Lymphocytes (%) (Auto) 12.5L, Monocytes (%) (Auto) 3.5, Eosinophils (%) (Auto) 0.2, Basophils (%) (Auto) 0.5, Sodium Level 136, Potassium Level 3.4L, Chloride Level 102, Carbon Dioxide Level 27, Anion Gap 8, Blood Urea Nitrogen 9, Creatinine 0.7, Estimat Glomerular Filtration Rate > 60, Glucose Level 128H, Calcium Level 8.0L Current Medications Medications (Trade) Dose Ordered Sig/Sunshine Route PRN Reason Start Time Stop Time Status Last Admin Dose Admin Acetaminophen (Tylenol) 650 mg Q6H PRN ORAL Pain 0-4/10 or Temp >100.4 F 06/29/20 04:15 07/29/20 04:14 Albuterol/ Ipratropium (Combivent Respimat) 1 puff Q6H PRN INH coughing/SOB 06/29/20 07:00 07/29/20 06:59 Dexamethasone (Decadron) 6 mg DAILY ORAL 06/30/20 10:49 07/09/20 09:01 07/02/20 09:42 Dextrose (Dextrose 50%) 25 ml Q30M PRN IV Hypoglycemia 06/29/20 18:30 09/27/20 18:29 Dextrose (Dextrose 50%) 50 ml Q30M PRN IV Hypoglycemia 06/29/20 18:30 09/27/20 18:29 Guaifenesin/ Dextromethorphan (Robitussin DM Syrup) 10 ml Q4H PRN ORAL For Cough 06/29/20 04:15 09/27/20 04:14 07/02/20 04:58 Heparin Sodium (Porcine) (Heparin 5000 units/ml) 5,000 units EVERY 12 HOURS SUBQ 06/29/20 09:00 08/13/20 08:59 07/02/20 09:42 Insulin Aspart (NovoLOG) BEFORE MEALS AND HS SUBQ 06/29/20 06:30 09/27/20 06:29 07/01/20 16:46 Insulin Aspart (NovoLOG) 12 units NOVOTIAC SUBQ 06/30/20 11:50 09/27/20 18:29 07/02/20 12:32 Insulin Detemir (Levemir) 20 units BID SUBQ 06/30/20 09:00 09/27/20 20:59 07/02/20 09:54 Morphine Sulfate (Morphine Sulfate) 2 mg Q4H PRN IVP For Pain Scale 5-10 06/29/20 04:15 07/06/20 04:14 Ondansetron HCl (Zofran) 4 mg Q6H PRN IVP Nausea & Vomiting 06/29/20 04:15 07/29/20 04:14 Sodium Chloride 1,000 ml @ 60 mls/hr [id number] IV 06/29/20 05:30 07/29/20 05:29 07/02/20 01:22 Vancomycin HCl (Vanco pharmacy to dose) 1 ea DAILY PRN MISC . 06/29/20 16:30 07/29/20 15:29 Vancomycin HCl 750 mg/Sodium Chloride 275 ml @ 183.333 mls/hr Q8HR IVPB 06/29/20 23:00 07/04/20 22:59 07/02/20 05:56 Assessment/Plan Assessment/Plan 1. Bilateral pulmonary infiltrates, high suspicion for COVID-19 pneumonia. - on dexamethasone - s/p empiric Abx - currently on 10 lpm NC saturating well; - 06/28/2020 COVID-19 test neg 2. Elevated inflammatory markers. 3. Negative initial rapid gene testing for COVID-19. 4. Hx of hypertension. 5. Diabetes mellitus. - on glucose-lowering agents 6. Fever. - resolved 7. Bacteremia - on Abx We will follow carefully. The care for this patient was discussed with my supervising physician Time spent for this case was approximately 31 minutes The patient was seen and examined at bedside and all new and available data was reviewed in the patients chart. I agree with the above findings, impression, and plan. (Patient was seen earlier today. Signature timestamp does not reflect patient encounter time) Zhen Austin MD Jul 02, 2020 14:10 Eloy Garg MD Jul 02, 2020 17:07
[2020-07-02 16:00] VITALS: BP 123/84
--- NOTE | 2020-07-02 18:30 | NUR ---
NURSE NOTES: Left message with Sofia at voicemail of Dr. Melo Yun notifying that patient's blood sugar at 1630=88. Holding insulin, Novolog Scheduled 12 units and 1800 Levemir. Will endorse evening shift to check scheduled at 2100 and provide insulin as indicated.
--- NOTE | 2020-07-02 19:03 | NUR ---
NURSE NOTES: Received call from Dr. Lucio Portillo, follow-up from telephone call to Dr. Melo Yun. Reported that I held the 16:30 Novolog Scheduled and the 18:[address] Lucio Portillo was OK with that.
--- NOTE | 2020-07-02 19:50 | NUR ---
NURSE NOTES: Reported to Dr. Eloy Garg that patient is now on an non-rebreather saturating at 96 percent.
--- NOTE | 2020-07-02 19:53 | NUR ---
NURSE HAND-OFF REPORT: Important Events on Shift: Patient on non-rebreather saturating at 95-97%. Reported blood sugar to Dr. Lucio Portillo, held 16:30 Novolog, 18:00 Levemir, both scheduled. Patient Status: Stable Diet: Low Sodium Pending Orders: am labs Pending Results/Labs:a.m. labs, CBC, BMP, A1C Pending MD notification:N/A Latest Vital Signs: Temperature 97.9 , Pulse 90 , B/P 123 /84 , Respiratory Rate 16 , O2 SAT 95 , Simple Mask, O2 Flow Rate 10.0 . Vital Sign Comment: Stable EKG Rhythm: Sinus Rhythm Rhythm change?: N MD Notified?: - MD Response: Latest Stafford Fall Score: 20 Fall Risk: Low Risk Safety Measures: Call light Within Reach, Bed Alarm Zone 2, Side Rails Side Rails x2, Bed position Low and Locked. Fall Precautions: Yellow Socks Yellow Gown Patient Fall Education Report given to Yanely Robbins RN.
--- NOTE | 2020-07-02 19:55 | NUR ---
NURSE NOTES: Patient received from ALICIA Dumont. Patient is awake, alert and oriented x 4. Patient is talkative and currently watching TV right now. No complaints as of the moment, able to verbalize her needs. Patient is on a non-rebreather mask satting at 96% with no signs of acute respiratory distress noted. Patient is able to ambulate with assist. Patient has an IV on his right AC running 1/2 NS at 60 ml/hr. Bed is in the lowest position and locked, call light within reach. Will continue to monitor.
[2020-07-02 20:00] VITALS: BP 123/73
[2020-07-03] VITALS: BP 127/68
[2020-07-03 04:00] VITALS: BP 129/77
[2020-07-03 04:50] LABS: HEMATOCRIT 41.6 % (42.0-52.0); MEAN CORPUSCULAR VOLUME 88 FL (80-99); PLATELET COUNT 225 K/UL (150-450); RED BLOOD COUNT 4.74 M/UL (4.70-6.10); RED CELL DISTRIBUTION WIDTH 12.9 % (11.6-14.8); WHITE BLOOD COUNT 12.9 K/UL (4.8-10.8)
[2020-07-03 04:59] LABS: ANION GAP 10 mmol/L (5-15); BLOOD UREA NITROGEN 10 mg/dL (7-18); CALCIUM 8.4 MG/DL (8.5-10.1); CARBON DIOXIDE 23 MMOL/L (21-32); CHLORIDE 103 MMOL/L (98-107); CREATININE 0.6 MG/DL (0.55-1.30); POTASSIUM 3.9 MMOL/L (3.5-5.1); SODIUM 136 MMOL/L (136-145)
--- NOTE | 2020-07-03 05:55 | NUR ---
NURSE NOTES: Patient blood sugar noted to be at 67. Gave 2 cups of orange juice. Did not give ordered insulin.
--- NOTE | 2020-07-03 06:10 | NUR ---
NURSE NOTES: Rechecked patient's blood sugar. Increased to 72. Gave 2 more cups of orange juice. Patient is asymptomatic. Patient says he is feeling fine.
--- NOTE | 2020-07-03 06:25 | NUR ---
NURSE NOTES: Rechecked patient's blood sugar. Blood sugar went up to 159.
--- NOTE | 2020-07-03 06:28 | NUR ---
NURSE NOTES: Notified Dr. Zuñiga regarding patient's positive covid result via PCR. Awaiting for call back.
[2020-07-03] MEDS: NovoLOG Insulin Flexpen SUBQ SCH ×6 (06:30→21:06)
--- NOTE | 2020-07-03 06:40 | General Progress Note ---
Subjective Allergies: Coded Allergies: No Known Allergies (Unverified , 07/11/18) All Systems: reviewed and negative except above Subjective events noted interval notes reviewed hypoglycemia this morning despite holding Levemir 20 units last night Item Value Date Time Glucose Level 63 MG/DL L 07/03/20 0435 Bedside Blood Glucose 120 mg/dl 07/02/20 2100 Bedside Blood Glucose 88 mg/dl 07/02/20 1630 Bedside Blood Glucose 117 mg/dl 07/02/20 1232 Bedside Blood Glucose 98 mg/dl 07/02/20 0954 Bedside Blood Glucose 98 mg/dl 07/02/20 0630 Objective Last 24 Hour Vital Signs Date Time Temp Pulse Resp B/P (MAP) Pulse Ox O2 Delivery O2 Flow Rate FiO2 07/03/20 04:00 97.9 82 18 129/77 (94) 97 07/03/20 04:00 78 07/03/20 00:00 66 07/03/20 00:00 97.7 84 17 127/68 (87) 97 07/02/20 21:00 Non-Rebreather 15.0 07/02/20 20:28 96 Non-Rebreather 15.0 100 07/02/20 20:00 97.5 79 18 123/73 (90) 97 07/02/20 20:00 75 07/02/20 16:00 90 07/02/20 16:00 97.9 91 16 123/84 (97) 95 07/02/20 12:00 98.1 91 16 133/87 (102) 88 07/02/20 12:00 94 07/02/20 09:00 Simple Mask 10.0 07/02/20 08:00 77 07/02/20 08:00 97.9 71 16 139/91 (107) 92 Intake and Output0 07/02/20 07/03/20 19:00 07:00 Intake Total 1862 ml 480 ml Output Total 1400 ml 1000 ml Balance 462 ml -520 ml Intake Oral 1000 ml 480 ml IV Total 862 ml Output Urine Total 1400 ml 1000 ml # Voids 4 3 # Bowel Movements 1 1 Laboratory Tests 07/02/20 22:03: POC Whole Blood Glucose 120H 07/03/20 04:35: White Blood Count 12.9H, Red Blood Count 4.74, Hemoglobin 16.0, Hematocrit 41.6L , Mean Corpuscular Volume 88, Mean Corpuscular Hemoglobin 33.7H, Mean Corpuscular Hemoglobin Concent 38.4H, Red Cell Distribution Width 12.9, Platelet Count 225, Mean Platelet Volume 8.9, Neutrophils (%) (Auto) , Lymphocytes (%) (Auto) , Monocytes (%) (Auto) , Eosinophils (%) (Auto) , Basophils (%) (Auto) , Sodium Level 136, Potassium Level 3.9, Chloride Level 103, Carbon Dioxide Level 23, Anion Gap 10, Blood Urea Nitrogen 10, Creatinine 0.6, Estimat Glomerular Filtration Rate > 60, Glucose Level 63L, Hemoglobin A1c 7.1H, Calcium Level 8.4L , Vancomycin Level Trough 9.2 07/03/20 05:10: POC Whole Blood Glucose 67L 07/03/20 05:52: POC Whole Blood Glucose [Pending] Height (Feet): 5 Height (Inches): 7.00 Weight (Pounds): 155 Objective Current Medications Medications (Trade) Dose Ordered Sig/Sunshine Route PRN Reason Start Time Stop Time Status Last Admin Dose Admin Acetaminophen (Tylenol) 650 mg Q6H PRN ORAL Pain 0-4/10 or Temp >100.4 F 06/29/20 04:15 07/29/20 04:14 Albuterol/ Ipratropium (Combivent Respimat) 1 puff Q6H PRN INH coughing/SOB 06/29/20 07:00 07/29/20 06:59 Dexamethasone (Decadron) 6 mg DAILY ORAL 06/30/20 10:49 07/09/20 09:01 07/02/20 09:42 Dextrose (Dextrose 50%) 25 ml Q30M PRN IV Hypoglycemia 06/29/20 18:30 09/27/20 18:29 Dextrose (Dextrose 50%) 50 ml Q30M PRN IV Hypoglycemia 06/29/20 18:30 09/27/20 18:29 Guaifenesin/ Dextromethorphan (Robitussin DM Syrup) 10 ml Q4H PRN ORAL For Cough 06/29/20 04:15 09/27/20 04:14 07/02/20 04:58 Heparin Sodium (Porcine) (Heparin 5000 units/ml) 5,000 units EVERY 12 HOURS SUBQ 06/29/20 09:00 08/13/20 08:59 07/02/20 21:56 Insulin Aspart (NovoLOG) BEFORE MEALS AND HS SUBQ 06/29/20 06:30 09/27/20 06:29 07/01/20 16:46 Insulin Aspart (NovoLOG) 12 units NOVOTIAC SUBQ 06/30/20 11:50 09/27/20 18:29 07/02/20 12:32 Insulin Detemir (Levemir) 20 units BID SUBQ 06/30/20 09:00 09/27/20 20:59 07/02/20 09:54 Morphine Sulfate (Morphine Sulfate) 2 mg Q4H PRN IVP For Pain Scale 5-10 06/29/20 04:15 07/06/20 04:14 Ondansetron HCl (Zofran) 4 mg Q6H PRN IVP Nausea & Vomiting 06/29/20 04:15 07/29/20 04:14 Sodium Chloride 1,000 ml @ 60 mls/hr [id number] IV 06/29/20 05:30 07/29/20 05:29 07/02/20 16:49 Vancomycin HCl (Vanco pharmacy to dose) 1 ea DAILY PRN MISC . 06/29/20 16:30 07/29/20 15:29 Vancomycin HCl 1 gm/Dextrose 275 ml @ 183.708 mls/hr Q8H IVPB 07/03/20 08:00 07/08/20 07:59 Assessment/Plan Problem List: (1) Diabetes mellitus out of control ICD Codes: E11.65 - Type 2 diabetes mellitus with hyperglycemia SNOMED: 71045868, 735330622 (2) Pneumonia due to COVID-19 virus ICD Codes: U07.1 - COVID-19; J12.89 - Other viral pneumonia SNOMED: 679865408341336988 Status: stable, progressing Assessment/Plan: reduce Levemir to 12 units qam reduce Novolog to 4 units ac tid continue Novolog sliding scale ac hs Lucio Portillo MD Jul 03, 2020 06:40
--- NOTE | 2020-07-03 06:45 | Consultation ---
History of Present Illness General Chief Complaint: Flu Like Symptoms Present Illness Allergies: Coded Allergies: No Known Allergies (Unverified , 07/11/18) Medication History Scheduled Silver Sulfadiazine (Silvadene), 20 GM TP Q12HR Scheduled PRN Hydrocodone Bit/Acetaminophen 5-325* ([place] 5-325*), 1 TAB ORAL Q6H PRN for For Pain Ibuprofen (Motrin), 600 MG ORAL Q8H PRN for For Pain Patient History Healthcare decision maker Resuscitation status Advanced Directive on File Physical Exam Last 24 Hour Vital Signs Date Time Temp Pulse Resp B/P (MAP) Pulse Ox O2 Delivery O2 Flow Rate FiO2 07/03/20 04:00 97.9 82 18 129/77 (94) 97 07/03/20 04:00 78 07/03/20 00:00 66 07/03/20 00:00 97.7 84 17 127/68 (87) 97 07/02/20 21:00 Non-Rebreather 15.0 07/02/20 20:28 96 Non-Rebreather 15.0 100 07/02/20 20:00 97.5 79 18 123/73 (90) 97 07/02/20 20:00 75 07/02/20 16:00 90 07/02/20 16:00 97.9 91 16 123/84 (97) 95 07/02/20 12:00 98.1 91 16 133/87 (102) 88 07/02/20 12:00 94 07/02/20 09:00 Simple Mask 10.0 07/02/20 08:00 77 07/02/20 08:00 97.9 71 16 139/91 (107) 92 Intake and Output 07/02/20 07/03/20 19:00 07:00 Intake Total 1862 ml 480 ml Output Total 1400 ml 1000 ml Balance 462 ml -520 ml Intake Oral 1000 ml 480 ml IV Total 862 ml Output Urine Total 1400 ml 1000 ml # Voids 4 3 # Bowel Movements 1 1 Laboratory Tests Test 07/02/20 22:03 07/03/20 04:35 07/03/20 05:10 07/03/20 05:52 POC Whole Blood Glucose 120 MG/DL (74-106) H 67 MG/DL (74-106) L Pending White Blood Count 12.9 K/UL (4.8-10.8) H Red Blood Count 4.74 M/UL (4.70-6.10) Hemoglobin 16.0 G/DL (14.2-18.0) Hematocrit 41.6 % (42.0-52.0) L Mean Corpuscular Volume 88 FL (80-99) Mean Corpuscular Hemoglobin 33.7 PG (27.0-31.0) H Mean Corpuscular Hemoglobin Concent 38.4 G/DL (32.0-36.0) H Red Cell Distribution Width 12.9 % (11.6-14.8) Platelet Count 225 K/UL (150-450) Mean Platelet Volume 8.9 FL (6.5-10.1) Neutrophils (%) (Auto) % (45.0-75.0) Lymphocytes (%) (Auto) % (20.0-45.0) Monocytes (%) (Auto) % (1.0-10.0) Eosinophils (%) (Auto) % (0.0-3.0) Basophils (%) (Auto) % (0.0-2.0) Sodium Level 136 MMOL/L (136-145) Potassium Level 3.9 MMOL/L (3.5-5.1) Chloride Level 103 MMOL/L (98-107) Carbon Dioxide Level 23 MMOL/L (21-32) Anion Gap 10 mmol/L (5-15) Blood Urea Nitrogen 10 mg/dL (7-18) Creatinine 0.6 MG/DL (0.55-1.30) Estimat Glomerular Filtration Rate > 60 mL/min (>60) Glucose Level 63 MG/DL (74-106) L Hemoglobin A1c 7.1 % (4.3-6.0) H Calcium Level 8.4 MG/DL (8.5-10.1) L Vancomycin Level Trough 9.2 ug/mL (5.0-12.0) Height (Feet): 5 Height (Inches): 7.00 Weight (Pounds): 155 Medications Current Medications Medications (Trade) Dose Ordered Sig/Sunshine Route PRN Reason Start Time Stop Time Status Last Admin Dose Admin Acetaminophen (Tylenol) 650 mg Q6H PRN ORAL Pain 0-4/10 or Temp >100.4 F 06/29/20 04:15 07/29/20 04:14 Albuterol/ Ipratropium (Combivent Respimat) 1 puff Q6H PRN INH coughing/SOB 06/29/20 07:00 07/29/20 06:59 Dexamethasone (Decadron) 6 mg DAILY ORAL 06/30/20 10:49 07/09/20 09:01 07/02/20 09:42 Dextrose (Dextrose 50%) 25 ml Q30M PRN IV Hypoglycemia 06/29/20 18:30 09/27/20 18:29 Dextrose (Dextrose 50%) 50 ml Q30M PRN IV Hypoglycemia 06/29/20 18:30 09/27/20 18:29 Guaifenesin/ Dextromethorphan (Robitussin DM Syrup) 10 ml Q4H PRN ORAL For Cough 06/29/20 04:15 09/27/20 04:14 07/02/20 04:58 Heparin Sodium (Porcine) (Heparin 5000 units/ml) 5,000 units EVERY 12 HOURS SUBQ 06/29/20 09:00 08/13/20 08:59 07/02/20 21:56 Insulin Aspart (NovoLOG) BEFORE MEALS AND HS SUBQ 06/29/20 06:30 09/27/20 06:29 07/01/20 16:46 Insulin Aspart (NovoLOG) 4 units NOVOTIAC SUBQ 07/03/20 11:50 09/27/20 18:29 Insulin Detemir (Levemir) 12 units DAILY SUBQ 07/03/20 09:00 09/27/20 20:59 Morphine Sulfate (Morphine Sulfate) 2 mg Q4H PRN IVP For Pain Scale 5-10 06/29/20 04:15 07/06/20 04:14 Ondansetron HCl (Zofran) 4 mg Q6H PRN IVP Nausea & Vomiting 06/29/20 04:15 07/29/20 04:14 Sodium Chloride 1,000 ml @ 60 mls/hr [id number] IV 06/29/20 05:30 07/29/20 05:29 07/02/20 16:49 Vancomycin HCl (Vanco pharmacy to dose) 1 ea DAILY PRN MISC . 06/29/20 16:30 07/29/20 15:29 Vancomycin HCl 1 gm/Dextrose 275 ml @ 183.708 mls/hr Q8H IVPB 07/03/20 08:00 07/08/20 07:59 Assessment/Plan Assessment/Plan: Hematology Consult RFC: elevated ddimer REQ : Melo Yun HPI 55-year-old male with history of type 2 diabetes, hypertension currently taking medication here complaining of 4 days of exenatide headache. Denies any shortness of breath, chest pain, cough and congestion. Reports a minor sore throat. Patient appears to be hypoxic satting 84% upon arrival. Denies any chest tightness at this time. Denies diarrhea. Patient also appears to be tachycardic. Has not taken medication for symptom relief. Patient speaking full sentences, denies any blood thinners. Now on 10l fm, with elev ddimer Allergies: No Known Allergies (Unverified , 07/11/18) COVID-19 Screening Contact w/high risk pt: No Experienced COVID-19 symptoms?: Yes COVID-19 Testing performed ATMOSPHERIC TECHNICIAN: No Patient History Past Medical History: see triage record Past Surgical History: none Pertinent Family History: none Immunizations: UTD Reviewed Nursing Documentation: PMH: Agreed; PSxH: Agreed Nursing Documentation-PMH Past Medical History: No History, Except For Hx Diabetes: Yes Review of Systems All Other Systems: negative except mentioned in HPI Physical Exam Sp02 EP Interpretation: abnormal - Hypoxic 10L FM General: moderate distress Heent: normocephalic, atraumatic Neck: supple Resp: no respiratory distress, no retraction, no accessory muscle use Cardiovascular: tachycardia Gastrointestinal: non tender, soft Rectal: deferred Genitourinary: no CVA tenderness Musculoskeletal: back normal, no calf tenderness Neurologic: alert, motor strength/tone normal, oriented x3, sensory intact Skin: no rash Lymphatic: no adenopathy Labs: reviewed Imaging: Chest X-Ray Diagnostic Results Chest X-Ray Diagnostic Results : Chest X-Ray Ordered: Yes # of Views/Limited/Complete: 1 View Indication: Other EP Interpretation: Yes PA Xray: Interpretation reviewed, by supervising MD, and agrees with findings. Interpretation: other - Diffuse infiltrates which appear to be Covid pneumonia Impression: Other - Pneumonia Assessment and recs # Leukocytosis due to Bilateral pulmonary infiltrates, high suspicion for COVID- 19 pneumonia. --> on dexamethasone --> s/p empiric Abx --> currently on 10 lpm NC saturating well; --> wbc 12 # Elevated ddimer with covid19 pna --> did receive abx since admission --> oxygen supplementation as per before --> pulm re-eval --> venous duplex legs as needed, but hold off, stable for dc # Hypoxia --> 10l Fm, adjust as needed # Type 2 diabetes # Hypertension # Bacteremia --> per id, on Abx # Dvt ppx heparin sq Appreciate consultation and dw RN Ever Mcadams MD Jul 03, 2020 06:45
--- NOTE | 2020-07-03 07:25 | NUR ---
NURSE HAND-OFF REPORT: Important Events on Shift:[Patient positive Covid. Reported to Dr. Zuñiga. Patient's 6 AM blood glucose was noted to be at 67, gave orang juice and blood glucose went to 159. Held AM insulin. Patient asymptomatic] Patient Status: [Stable] Diet: [Low Na CCHO medium] Pending Orders: [] Pending Results/Labs:[] Pending MD notification:[] Latest Vital Signs: Temperature 97.9 , Pulse 78 , B/P 129 /77 , Respiratory Rate 18 , O2 SAT 97 , Non-Rebreather, O2 Flow Rate 15.0 . Vital Sign Comment: [] EKG Rhythm: Sinus Rhythm Rhythm change?: N MD Notified?: - MD Response: Latest Stafford Fall Score: 20 Fall Risk: Low Risk Safety Measures: Call light Within Reach, Bed Alarm Zone 2, Side Rails Side Rails x2, Bed position Low and Locked. Fall Precautions: Yellow Socks Yellow Gown Patient Fall Education Report given to [Cesar RN].
[2020-07-03 08:00] VITALS: BP 113/71
--- NOTE | 2020-07-03 08:00 | NUR ---
NURSE NOTES: Pt awake/alert in bed, breathing on 15 lpm nonrebreather mask, denies SOB and denies pain at this time. Vital signs stable with SR @ 78 on monitor. IV access RAC with 1/2 NS running at 60 hand. Urinal at bedside emptied. Bed left in low position, side rails up x 2 and call light left near pt's hand.
--- NOTE | 2020-07-03 08:07 | NUR ---
CASE MANAGEMENT:REVIEW 07/03/20 SI: LUIS A COVID PNA. BACTEREMIA DESATURATED TO 88% 97.9 82 18 129/77 97% ON 15L NRB IS: IV VANCOMYCIN Q8HRS IVF@60/HR INSULIN SQ BID DECADRON PO QD HEPARIN SQ Q12 : TELEMETRY DCP FROM HOME
[2020-07-03] MEDS: Vancomycin 1gm/D5W 275ml IVPB SCH ×4 (08:15→16:09)
[2020-07-03] MEDS: Heparin 5000 units/ml inj SUBQ SCH ×2 (08:16→21:05)
[2020-07-03] MEDS: Levemir Flexpen SUBQ SCH (08:17)
--- NOTE | 2020-07-03 09:03 | Consultation ---
DATE OF CONSULTATION: 07/02/2020 ENDOCRINOLOGY CONSULTATION CONSULTING PHYSICIAN: Terrance Gaming MD REFERRING PHYSICIAN: Melo Yun DO REASON FOR CONSULTATION: I was asked to see this 55-year-old male by Dr. Jama Alejo in Endocrinology consultation for evaluation and management of type 2 diabetes mellitus out of control. PERTINENT HISTORY:He is a diabetic for several years, Now he has COVID pneumonia, was started on Decadron 6 mg IVP daily.He was on Metformin 500 mg po BID. FAMILY HISTORY: Unremarkable. REVIEW OF SYSTEMS: Unremarkable. PHYSICAL EXAMINATION: GENERAL: The patient is in no acute distress. VITAL SIGNS: Blood pressure 116/90, pulse 72, respiratory rate 18, temperature 97.5. HEAD AND NECK: Unremarkable. No jugular venous distention. LUNGS: reducecd BS. HEART: distant. ABDOMEN: Bowel sounds present. EXTREMITIES: No edema. NEUROLOGIC: Cranial nerves II through XII are grossly intact with toes downgoing to plantar stimulation. LABORATORY DATA: Last blood sugar 133. SSMENT: 1. COVID pneumonia. . 2. Type 2 diabetes mellitus. 3. Malnutrition. PLAN: _Resume Metformin 500 mg po BID.Accuchecks QID av and HS with moderate sliding scale Lispro hemoglobin A1c.in am.. Terrance Gaming M.D. DR: KT JOB#: [id number] CC: MARIAMA
--- NOTE | 2020-07-03 09:13 | General Progress Note ---
Subjective Constitutional: Reports: weakness Allergies: Coded Allergies: No Known Allergies (Unverified , 07/11/18) All Systems: reviewed and negative except above Subjective calm in bed Objective Last 24 Hour Vital Signs Date Time Temp Pulse Resp B/P (MAP) Pulse Ox O2 Delivery O2 Flow Rate FiO2 07/03/20 04:00 97.9 82 18 129/77 (94) 97 07/03/20 04:00 78 07/03/20 00:00 66 07/03/20 00:00 97.7 84 17 127/68 (87) 97 07/02/20 21:00 Non-Rebreather 15.0 07/02/20 20:28 96 Non-Rebreather 15.0 100 07/02/20 20:00 97.5 79 18 123/73 (90) 97 07/02/20 20:00 75 07/02/20 16:00 90 07/02/20 16:00 97.9 91 16 123/84 (97) 95 07/02/20 12:00 98.1 91 16 133/87 (102) 88 07/02/20 12:00 94 Intake and Output 07/02/20 07/03/20 19:02 07:02 Intake Total 1862 ml 480 ml Output Total 1400 ml 1000 ml Balance 462 ml -520 ml Intake Oral 1000 ml 480 ml IV Total 862 ml Output Urine Total 1400 ml 1000 ml # Voids 4 3 # Bowel Movements 1 1 Laboratory Tests 07/02/20 22:03: POC Whole Blood Glucose 120H 07/03/20 04:35: White Blood Count 12.9H, Red Blood Count 4.74, Hemoglobin 16.0, Hematocrit 41.6L , Mean Corpuscular Volume 88, Mean Corpuscular Hemoglobin 33.7H, Mean Corpuscular Hemoglobin Concent 38.4H, Red Cell Distribution Width 12.9, Platelet Count 225, Mean Platelet Volume 8.9, Neutrophils (%) (Auto) , Lymphocytes (%) (Auto) , Monocytes (%) (Auto) , Eosinophils (%) (Auto) , Basophils (%) (Auto) , Sodium Level 136, Potassium Level 3.9, Chloride Level 103, Carbon Dioxide Level 23, Anion Gap 10, Blood Urea Nitrogen 10, Creatinine 0.6, Estimat Glomerular Filtration Rate > 60, Glucose Level 63L, Hemoglobin A1c 7.1H, Calcium Level 8.4L , Vancomycin Level Trough 9.2 07/03/20 05:10: POC Whole Blood Glucose 67L 07/03/20 05:52: POC Whole Blood Glucose [Pending] Height (Feet): 5 Height (Inches): 7.00 Weight (Pounds): 155 General Appearance: lethargic EENT: normal ENT inspection Neck: normal alignment Cardiovascular: normal peripheral pulses, normal rate, regular rhythm Respiratory/Chest: chest wall non-tender, lungs clear, normal breath sounds Extremities: normal inspection Edema: no edema noted Arm (L), no edema noted Arm (R), no edema noted Leg (L), no edema noted Leg (R), no edema noted Pedal (L), no edema noted Pedal (R), no edema noted Generalized Neurologic: motor weakness Skin: normal pigmentation, warm/dry Assessment/Plan Problem List: (1) Pneumonia ICD Codes: J18.9 - Pneumonia, unspecified organism SNOMED: 818214826 (2) UTI (urinary tract infection) ICD Codes: N39.0 - Urinary tract infection, site not specified SNOMED: 58455707 (3) Diabetes ICD Codes: E11.9 - Type 2 diabetes mellitus without complications SNOMED: 63318358 (4) HTN (hypertension) ICD Codes: I10 - Essential (primary) hypertension SNOMED: 28628017 (5) Malnutrition ICD Codes: E46 - Unspecified protein-calorie malnutrition SNOMED: 45976346 (6) Hypoxia ICD Codes: R09.02 - Hypoxemia; J12.89 - Other viral pneumonia SNOMED: 182023959 Status: stable, progressing Assessment/Plan: pt diet abx o2 pulm tx cbc bmp am dc if all clear Melo Yun DO Jul 03, 2020 09:13
--- NOTE | 2020-07-03 11:26 | Infectious Diseases Prog Note ---
Assessment/Plan Assessment/Plan antibiotics : vancomycin iv A 1. pneumonia COVID 19 rapid test negative 2. coag neg staph likely contaminated 3. diabetes mellitus 4. hypertension P 1. continue iv vancomycin 2. start cefepime 3. d/c decadron 3. will follow up cultures Subjective Constitutional: Denies: fever, chills Respiratory: Reports: shortness of breath, dry cough, other - sore throat Gastrointestinal/Abdominal: Denies: nausea, vomiting Allergies: Coded Allergies: No Known Allergies (Unverified , 07/11/18) Objective Last 24 Hour Vital Signs Date Time Temp Pulse Resp B/P (MAP) Pulse Ox O2 Delivery O2 Flow Rate FiO2 07/03/20 09:00 Non-Rebreather 15.0 07/03/20 08:00 90 07/03/20 08:00 97.7 80 18 113/71 (85) 96 07/03/20 04:00 97.9 82 18 129/77 (94) 97 07/03/20 04:00 78 07/03/20 00:00 66 07/03/20 00:00 97.7 84 17 127/68 (87) 97 07/02/20 21:00 Non-Rebreather 15.0 07/02/20 20:28 96 Non-Rebreather 15.0 100 07/02/20 20:00 97.5 79 18 123/73 (90) 97 07/02/20 20:00 75 07/02/20 16:00 90 07/02/20 16:00 97.9 91 16 123/84 (97) 95 07/02/20 12:00 98.1 91 16 133/87 (102) 88 07/02/20 12:00 94 Height (Feet): 5 Height (Inches): 7.00 Weight (Pounds): 155 Laboratory Tests Test 07/02/20 22:03 07/03/20 04:35 07/03/20 05:10 07/03/20 05:52 POC Whole Blood Glucose 120 MG/DL (74-106) H 67 MG/DL (74-106) L Pending White Blood Count 12.9 K/UL (4.8-10.8) H Red Blood Count 4.74 M/UL (4.70-6.10) Hemoglobin 16.0 G/DL (14.2-18.0) Hematocrit 41.6 % (42.0-52.0) L Mean Corpuscular Volume 88 FL (80-99) Mean Corpuscular Hemoglobin 33.7 PG (27.0-31.0) H Mean Corpuscular Hemoglobin Concent 38.4 G/DL (32.0-36.0) H Red Cell Distribution Width 12.9 % (11.6-14.8) Platelet Count 225 K/UL (150-450) Mean Platelet Volume 8.9 FL (6.5-10.1) Neutrophils (%) (Auto) % (45.0-75.0) Lymphocytes (%) (Auto) % (20.0-45.0) Monocytes (%) (Auto) % (1.0-10.0) Eosinophils (%) (Auto) % (0.0-3.0) Basophils (%) (Auto) % (0.0-2.0) Sodium Level 136 MMOL/L (136-145) Potassium Level 3.9 MMOL/L (3.5-5.1) Chloride Level 103 MMOL/L (98-107) Carbon Dioxide Level 23 MMOL/L (21-32) Anion Gap 10 mmol/L (5-15) Blood Urea Nitrogen 10 mg/dL (7-18) Creatinine 0.6 MG/DL (0.55-1.30) Estimat Glomerular Filtration Rate > 60 mL/min (>60) Glucose Level 63 MG/DL (74-106) L Hemoglobin A1c 7.1 % (4.3-6.0) H Calcium Level 8.4 MG/DL (8.5-10.1) L Vancomycin Level Trough 9.2 ug/mL (5.0-12.0) Current Medications Medications (Trade) Dose Ordered Sig/Sunshine Route PRN Reason Start Time Stop Time Status Last Admin Dose Admin Acetaminophen (Tylenol) 650 mg Q6H PRN ORAL Pain 0-4/10 or Temp >100.4 F 06/29/20 04:15 07/29/20 04:14 Albuterol/ Ipratropium (Combivent Respimat) 1 puff Q6H PRN INH coughing/SOB 06/29/20 07:00 07/29/20 06:59 Dexamethasone (Decadron) 6 mg DAILY ORAL 06/30/20 10:49 07/09/20 09:01 07/03/20 08:16 Dextrose (Dextrose 50%) 25 ml Q30M PRN IV Hypoglycemia 06/29/20 18:30 09/27/20 18:29 Dextrose (Dextrose 50%) 50 ml Q30M PRN IV Hypoglycemia 06/29/20 18:30 09/27/20 18:29 Guaifenesin/ Dextromethorphan (Robitussin DM Syrup) 10 ml Q4H PRN ORAL For Cough 06/29/20 04:15 09/27/20 04:14 07/02/20 04:58 Heparin Sodium (Porcine) (Heparin 5000 units/ml) 5,000 units EVERY 12 HOURS SUBQ 06/29/20 09:00 08/13/20 08:59 07/03/20 08:16 Insulin Aspart (NovoLOG) BEFORE MEALS AND HS SUBQ 06/29/20 06:30 09/27/20 06:29 07/01/20 16:46 Insulin Aspart (NovoLOG) 4 units NOVOTIAC SUBQ 07/03/20 11:50 09/27/20 18:29 Insulin Detemir (Levemir) 12 units DAILY SUBQ 07/03/20 09:00 09/27/20 20:59 07/03/20 08:17 Morphine Sulfate (Morphine Sulfate) 2 mg Q4H PRN IVP For Pain Scale 5-10 06/29/20 04:15 07/06/20 04:14 Ondansetron HCl (Zofran) 4 mg Q6H PRN IVP Nausea & Vomiting 06/29/20 04:15 07/29/20 04:14 Sodium Chloride 1,000 ml @ 60 mls/hr [id number] IV 06/29/20 05:30 07/29/20 05:29 07/03/20 09:45 Vancomycin HCl (Vanco pharmacy to dose) 1 ea DAILY PRN MISC . 06/29/20 16:30 07/29/20 15:29 Vancomycin HCl 1 gm/Dextrose 275 ml @ 183.708 mls/hr Q8H IVPB 07/03/20 08:00 07/08/20 07:59 07/03/20 08:15 Navarro Zuñiga MD Jul 03, 2020 11:26
[2020-07-03 11:39] VITALS: BP 123/68
--- NOTE | 2020-07-03 12:27 | Pulmonology Progress Note ---
Subjective ROS Limited/Unobtainable: Yes Interval Events: none major Constitutional: Denies: fever, chills HEENT: Repors: no symptoms Respiratory: Reports: dry cough Cardiovascular: Reports: no symptoms Gastrointestinal/Abdominal: Denies: nausea, vomiting Musculoskeletal: Denies: pain Allergies: Coded Allergies: No Known Allergies (Unverified , 07/11/18) All Systems: reviewed and negative except above Objective Last 24 Hour Vital Signs Date Time Temp Pulse Resp B/P (MAP) Pulse Ox O2 Delivery O2 Flow Rate FiO2 07/03/20 11:39 98.1 88 16 123/68 (86) 97 07/03/20 09:00 Non-Rebreather 15.0 07/03/20 08:00 90 07/03/20 08:00 97.7 80 18 113/71 (85) 96 07/03/20 04:00 97.9 82 18 129/77 (94) 97 07/03/20 04:00 78 07/03/20 00:00 66 07/03/20 00:00 97.7 84 17 127/68 (87) 97 07/02/20 21:00 Non-Rebreather 15.0 07/02/20 20:28 96 Non-Rebreather 15.0 100 07/02/20 20:00 97.5 79 18 123/73 (90) 97 07/02/20 20:00 75 07/02/20 16:00 90 07/02/20 16:00 97.9 91 16 123/84 (97) 95 Intake and Output 07/02/20 07/03/20 19:00 07:00 Intake Total 1862 ml 480 ml Output Total 1400 ml 1000 ml Balance 462 ml -520 ml Intake Oral 1000 ml 480 ml IV Total 862 ml Output Urine Total 1400 ml 1000 ml # Voids 4 3 # Bowel Movements 1 1 Objective 07/03/2020 now on NRB 15 L, pt reports he's breathing fine; due for dialysis today 07/02/2020 now at 10 L simple face mask saturating >92% 07/01/2020 per RN pt saturating at low 90s with 6 lpm oxygen simple face mask 06/30/2020 saturating 96% on 6 lpm simple face mask; pt subjectively feels better 06/29/2020 pt in bed; saturating 97% on 6 lpm simple face mask General Appearance: WD/WN, no acute distress HEENT: normocephalic Respiratory: chest wall non-tender, lungs clear, normal breath sounds Cardiovascular: normal rate, regular rhythm, no gallop/murmur Laboratory Tests 07/02/20 22:03: POC Whole Blood Glucose 120H 07/03/20 04:35: White Blood Count 12.9H, Red Blood Count 4.74, Hemoglobin 16.0, Hematocrit 41.6L , Mean Corpuscular Volume 88, Mean Corpuscular Hemoglobin 33.7H, Mean Corpuscular Hemoglobin Concent 38.4H, Red Cell Distribution Width 12.9, Platelet Count 225, Mean Platelet Volume 8.9, Neutrophils (%) (Auto) , Lymphocytes (%) (Auto) , Monocytes (%) (Auto) , Eosinophils (%) (Auto) , Basophils (%) (Auto) , Sodium Level 136, Potassium Level 3.9, Chloride Level 103, Carbon Dioxide Level 23, Anion Gap 10, Blood Urea Nitrogen 10, Creatinine 0.6, Estimat Glomerular Filtration Rate > 60, Glucose Level 63L, Hemoglobin A1c 7.1H, Calcium Level 8.4L , Vancomycin Level Trough 9.2 07/03/20 05:10: POC Whole Blood Glucose 67L 07/03/20 05:52: POC Whole Blood Glucose [Pending] 07/03/20 11:25: POC Whole Blood Glucose [Pending] Current Medications Medications (Trade) Dose Ordered Sig/Sunshine Route PRN Reason Start Time Stop Time Status Last Admin Dose Admin Acetaminophen (Tylenol) 650 mg Q6H PRN ORAL Pain 0-4/10 or Temp >100.4 F 06/29/20 04:15 07/29/20 04:14 Albuterol/ Ipratropium (Combivent Respimat) 1 puff Q6H PRN INH coughing/SOB 06/29/20 07:00 07/29/20 06:59 Cefepime HCl 2 gm/ Dextrose 55 ml @ 110 mls/hr EVERY 12 HOURS IVPB 07/03/20 13:00 07/10/20 12:59 Dextrose (Dextrose 50%) 25 ml Q30M PRN IV Hypoglycemia 06/29/20 18:30 09/27/20 18:29 Dextrose (Dextrose 50%) 50 ml Q30M PRN IV Hypoglycemia 06/29/20 18:30 09/27/20 18:29 Guaifenesin/ Dextromethorphan (Robitussin DM Syrup) 10 ml Q4H PRN ORAL For Cough 06/29/20 04:15 09/27/20 04:14 07/02/20 04:58 Heparin Sodium (Porcine) (Heparin 5000 units/ml) 5,000 units EVERY 12 HOURS SUBQ 06/29/20 09:00 08/13/20 08:59 07/03/20 08:16 Insulin Aspart (NovoLOG) BEFORE MEALS AND HS SUBQ 06/29/20 06:30 09/27/20 06:29 07/03/20 11:28 Insulin Aspart (NovoLOG) 4 units NOVOTIAC SUBQ 07/03/20 11:50 09/27/20 18:29 07/03/20 11:29 Insulin Detemir (Levemir) 12 units DAILY SUBQ 07/03/20 09:00 09/27/20 20:59 07/03/20 08:17 Morphine Sulfate (Morphine Sulfate) 2 mg Q4H PRN IVP For Pain Scale 5-10 06/29/20 04:15 07/06/20 04:14 Ondansetron HCl (Zofran) 4 mg Q6H PRN IVP Nausea & Vomiting 06/29/20 04:15 07/29/20 04:14 Sodium Chloride 1,000 ml @ 60 mls/hr [id number] IV 06/29/20 05:30 07/29/20 05:29 07/03/20 09:45 Vancomycin HCl (Vanco pharmacy to dose) 1 ea DAILY PRN MISC . 06/29/20 16:30 07/29/20 15:29 Vancomycin HCl 1 gm/Dextrose 275 ml @ 183.708 mls/hr Q8H IVPB 07/03/20 08:00 07/08/20 07:59 07/03/20 08:15 Assessment/Plan Assessment/Plan 1. Bilateral pulmonary infiltrates, high suspicion for COVID-19 pneumonia. Now confirmed - s/p dexamethasone - s/p empiric Abx - currently on 15 L NRB saturating well; s/p failed attempt on 6-10L oxygen via simple face mask due to desaturation down to 80s. - 06/28/2020 COVID-19 test neg; pcr test positive 2. Elevated inflammatory markers. 3. Negative initial rapid gene testing for COVID-19. pcR however positive 4. Hx of hypertension. 5. Diabetes mellitus. - on glucose-lowering agents 6. Fever. - resolved 7. Bacteremia - on Abx We will follow carefully. The care for this patient was discussed with my supervising physician Time spent for this case was approximately 31 minutes Zhen Lebron Jul 03, 2020 12:27 Eloy Garg MD Jul 03, 2020 16:32
[2020-07-03] MEDS: Cefepime HCl 2 GM in D5W 55 ML IVPB SCH ×2 (13:00→21:04)
[2020-07-03 16:00] VITALS: BP 125/71
[2020-07-03] MEDS ORDERED: Loading Dose:Remdesivir 200mg/NS 210ml IV SCH ×2 (18:00)
--- NOTE | 2020-07-03 19:21 | NUR ---
NURSE NOTES: Patient received from ALICIA Guerrero. Pt is A/O x4 and verbally responsive and Indonesian but simple Kazakh also. Pt is currently watching TV. No SOB or acute distress noted. No pain noted. Pt is on a non-rebreather mask with a saturation @ 96%. Patient is able to ambulate with assist. Patient has an IV on his right AC running 1/2 NS at 60 ml/hr. Bed is in the lowest position and locked, call light within reach. Educated to use light when assistance is needed. Will continue plan of care.
[2020-07-03 20:00] VITALS: BP 132/74
[2020-07-04] VITALS: BP 134/67
[2020-07-04] MEDS: Vancomycin 1gm/D5W 275ml IVPB SCH ×4 (00:08→08:18)
[2020-07-04 04:00] VITALS: BP 131/70
[2020-07-04] MEDS: NovoLOG Insulin Flexpen SUBQ SCH ×7 (05:26→21:00)
--- NOTE | 2020-07-04 06:27 | Hematology/Onc Progress Note ---
Assessment/Plan Assessment/Plan Assessment and recs # Leukocytosis due to Bilateral pulmonary infiltrates, high suspicion for COVID- 19 pneumonia. --> on dexamethasone --> s/p empiric Abx --> currently on 10 lpm NC saturating well; --> wbc 12-->13 # Elevated ddimer with covid19 pna --> did receive abx since admission --> oxygen supplementation as per before --> pulm re-eval --> venous duplex legs as needed, but hold off, stable for dc # Hypoxia --> 10l Fm, adjust as needed v nonrebreather # Type 2 diabetes # Hypertension # Bacteremia --> per id, on Abx # Dvt ppx heparin sq Appreciate consultation and dw RN Subjective Constitutional: Denies: no symptoms, chills, fever, malaise, weakness, other HEENT: Denies: no symptoms, eye pain, blurred vision, tearing, double vision, ear pain, ear discharge, nose pain, nose congestion, throat pain, throat swelling, mouth pain, mouth swelling, other Cardiovascular: Denies: no symptoms, chest pain, edema, irregular heart rate, lightheadedness, palpitations, syncope, other Respiratory: Denies: no symptoms, cough, shortness of breath, SOB with excertion, SOB at rest, sputum, wheezing, other Genitourinary: Denies: no symptoms, burning, discharge, frequency, flank pain, hematuria, incontinence, pain, urgency, other Neurologic/Psychiatric: Denies: no symptoms, anxiety, depressed, emotional problems, headache, numbness, paresthesia, pre-existing deficit, seizure, tingling, tremors, weakness, other Endocrine: Denies: no symptoms, excessive sweating, flushing, intolerance to cold, intolerance to heat, increased hunger, increased thirst, increased urine, unexplained weight gain, unexplained weight loss, other Hematologic/Lymphatic: Denies: no symptoms, anemia, easy bleeding, easy bruising, adenopathy, other Allergies: Coded Allergies: No Known Allergies (Unverified , 07/11/18) Subjective 07/04 nonrebreather, meds noted, no bleeding, cbc pending Objective Objective Current Medications Medications (Trade) Dose Ordered Sig/Sunshine Route PRN Reason Start Time Stop Time Status Last Admin Dose Admin Acetaminophen (Tylenol) 650 mg Q6H PRN ORAL Pain 0-4/10 or Temp >100.4 F 06/29/20 04:15 07/29/20 04:14 Albuterol/ Ipratropium (Combivent Respimat) 1 puff Q6H PRN INH coughing/SOB 06/29/20 07:00 07/29/20 06:59 Cefepime HCl 2 gm/ Dextrose 55 ml @ 110 mls/hr EVERY 12 HOURS IVPB 07/03/20 13:00 07/10/20 12:59 07/03/20 21:04 Dexamethasone Sodium Phosphate (Decadron 4mg/ml vial) 6 mg DAILY IVP 07/04/20 09:00 07/09/20 09:01 Dextrose (Dextrose 50%) 25 ml Q30M PRN IV Hypoglycemia 06/29/20 18:30 09/27/20 18:29 Dextrose (Dextrose 50%) 50 ml Q30M PRN IV Hypoglycemia 06/29/20 18:30 09/27/20 18:29 Guaifenesin/ Dextromethorphan (Robitussin DM Syrup) 10 ml Q4H PRN ORAL For Cough 06/29/20 04:15 09/27/20 04:14 07/02/20 04:58 Heparin Sodium (Porcine) (Heparin 5000 units/ml) 5,000 units EVERY 12 HOURS SUBQ 06/29/20 09:00 08/13/20 08:59 07/03/20 21:05 Insulin Aspart (NovoLOG) BEFORE MEALS AND HS SUBQ 06/29/20 06:30 09/27/20 06:29 07/04/20 05:26 Insulin Aspart (NovoLOG) 4 units NOVOTIAC SUBQ 07/03/20 11:50 09/27/20 18:29 07/04/20 05:27 Insulin Detemir (Levemir) 12 units DAILY SUBQ 07/03/20 09:00 09/27/20 20:59 07/03/20 08:17 Morphine Sulfate (Morphine Sulfate) 2 mg Q4H PRN IVP For Pain Scale 5-10 06/29/20 04:15 07/06/20 04:14 Ondansetron HCl (Zofran) 4 mg Q6H PRN IVP Nausea & Vomiting 06/29/20 04:15 07/29/20 04:14 Remdesivir 100 mg/ Sodium Chloride 250 ml @ 250 mls/hr Q24H IV 07/04/20 18:00 07/07/20 18:59 Sodium Chloride 1,000 ml @ 60 mls/hr [id number] IV 06/29/20 05:30 07/29/20 05:29 07/04/20 02:34 Vancomycin HCl (Vanco pharmacy to dose) 1 ea DAILY PRN MISC . 06/29/20 16:30 07/29/20 15:29 Vancomycin HCl 1 gm/Dextrose 275 ml @ 183.708 mls/hr Q8H IVPB 07/03/20 08:00 07/08/20 07:59 07/04/20 00:08 Last 24 Hour Vital Signs Date Time Temp Pulse Resp B/P (MAP) Pulse Ox O2 Delivery O2 Flow Rate FiO2 07/04/20 04:00 67 07/04/20 04:00 97.8 68 18 131/70 (90) 95 07/04/20 00:00 68 07/04/20 00:00 98.0 74 18 134/67 (89) 98 07/03/20 21:00 Non-Rebreather 15.0 07/03/20 20:00 98.5 82 18 132/74 (93) 96 07/03/20 20:00 84 07/03/20 16:00 78 07/03/20 16:00 98.2 82 16 125/71 (89) 98 07/03/20 12:00 87 07/03/20 11:39 98.1 88 16 123/68 (86) 97 07/03/20 09:00 Non-Rebreather 15.0 07/03/20 08:00 90 07/03/20 08:00 97.7 80 18 113/71 (85) 96 07/03/20 04:00 97.9 82 18 129/77 (94) 97 07/03/20 04:00 78 07/03/20 00:00 66 07/03/20 00:00 97.7 84 17 127/68 (87) 97 07/02/20 21:00 Non-Rebreather 15.0 07/02/20 20:28 96 Non-Rebreather 15.0 100 07/02/20 20:00 97.5 79 18 123/73 (90) 97 07/02/20 20:00 75 12/13/20 16:00 90 07/02/20 16:00 97.9 91 16 123/84 (97) 95 07/02/20 12:00 98.1 91 16 133/87 (102) 88 07/02/20 12:00 94 07/02/20 09:00 Simple Mask 10.0 07/02/20 08:00 77 07/02/20 08:00 97.9 71 16 139/91 (107) 92 Intake and Output 07/03/20 07/04/20 19:00 07:00 Intake Total 740 ml 480 ml Output Total 1500 ml 850 ml Balance -760 ml -370 ml Intake Oral 740 ml 480 ml Output Urine Total 1500 ml 850 ml # Voids 3 # Bowel Movements 1 1 Labs Test 07/01/20 08:17 07/02/20 04:20 07/02/20 22:03 07/03/20 04:35 POC Whole Blood Glucose 92 MG/DL (74-106) 120 MG/DL (74-106) White Blood Count 13.2 K/UL (4.8-10.8) 12.9 K/UL (4.8-10.8) Red Blood Count 4.95 M/UL (4.70-6.10) 4.74 M/UL (4.70-6.10) Hemoglobin 16.3 G/DL (14.2-18.0) 16.0 G/DL (14.2-18.0) Hematocrit 45.6 % (42.0-52.0) 41.6 % (42.0-52.0) Mean Corpuscular Volume 92 FL (80-99) 88 FL (80-99) Mean Corpuscular Hemoglobin 32.9 PG (27.0-31.0) 33.7 PG (27.0-31.0) Mean Corpuscular Hemoglobin Concent 35.7 G/DL (32.0-36.0) 38.4 G/DL (32.0-36.0) Red Cell Distribution Width 11.9 % (11.6-14.8) 12.9 % (11.6-14.8) Platelet Count 192 K/UL (150-450) 225 K/UL (150-450) Mean Platelet Volume 9.9 FL (6.5-10.1) 8.9 FL (6.5-10.1) Neutrophils (%) (Auto) 83.2 % (45.0-75.0) % (45.0-75.0) Lymphocytes (%) (Auto) 12.5 % (20.0-45.0) % (20.0-45.0) Monocytes (%) (Auto) 3.5 % (1.0-10.0) % (1.0-10.0) Eosinophils (%) (Auto) 0.2 % (0.0-3.0) % (0.0-3.0) Basophils (%) (Auto) 0.5 % (0.0-2.0) % (0.0-2.0) Sodium Level 136 MMOL/L (136-145) 136 MMOL/L (136-145) Potassium Level 3.4 MMOL/L (3.5-5.1) 3.9 MMOL/L (3.5-5.1) Chloride Level 102 MMOL/L (98-107) 103 MMOL/L (98-107) Carbon Dioxide Level 27 MMOL/L (21-32) 23 MMOL/L (21-32) Anion Gap 8 mmol/L (5-15) 10 mmol/L (5-15) Blood Urea Nitrogen 9 mg/dL (7-18) 10 mg/dL (7-18) Creatinine 0.7 MG/DL (0.55-1.30) 0.6 MG/DL (0.55-1.30) Estimat Glomerular Filtration Rate > 60 mL/min (>60) > 60 mL/min (>60) Glucose Level 128 MG/DL (74-106) 63 MG/DL (74-106) Calcium Level 8.0 MG/DL (8.5-10.1) 8.4 MG/DL (8.5-10.1) Hemoglobin A1c 7.1 % (4.3-6.0) Vancomycin Level Trough 9.2 ug/mL (5.0-12.0) Test 07/03/20 05:10 07/03/20 05:52 07/03/20 11:25 07/03/20 20:51 POC Whole Blood Glucose 67 MG/DL (74-106) 227 MG/DL (74-106) Test 07/04/20 05:20 POC Whole Blood Glucose 187 MG/DL (74-106) Height (Feet): 5 Height (Inches): 7.00 Weight (Pounds): 155 Objective General: moderate distress Heent: normocephalic, atraumatic Neck: supple Resp: no respiratory distress, no retraction, ++ nonrebreather Cardiovascular: tachycardia Gastrointestinal: non tender, soft Genitourinary: no CVA tenderness Musculoskeletal: back normal, no calf tenderness Neurologic: alert, motor strength/tone normal, oriented x3, sensory intact Skin: no rash Lymphatic: no adenopathy Ever Mcadams MD Jul 04, 2020 06:27
--- NOTE | 2020-07-04 06:42 | General Progress Note ---
Subjective Allergies: Coded Allergies: No Known Allergies (Unverified , 07/11/18) All Systems: reviewed and negative except above Subjective events noted interval notes reviewed fair glycemic control - no more hypoglycemia Item Value Date Time Bedside Blood Glucose 187 mg/dl H 07/04/20 0527 Bedside Blood Glucose 227 mg/dl H 07/03/20 2106 Bedside Blood Glucose 188 mg/dl H 07/03/20 1650 Bedside Blood Glucose 204 mg/dl H 07/03/20 1129 Bedside Blood Glucose 159 mg/dl H 07/03/20 0817 Bedside Blood Glucose 67 mg/dl L 07/03/20 0630 Objective Last 24 Hour Vital Signs Date Time Temp Pulse Resp B/P (MAP) Pulse Ox O2 Delivery O2 Flow Rate FiO2 07/04/20 04:00 67 07/04/20 04:00 97.8 68 18 131/70 (90) 95 07/04/20 00:00 68 07/04/20 00:00 98.0 74 18 134/67 (89) 98 07/03/20 21:00 Non-Rebreather 15.0 07/03/20 20:00 98.5 82 18 132/74 (93) 96 07/03/20 20:00 84 07/03/20 16:00 78 07/03/20 16:00 98.2 82 16 125/71 (89) 98 07/03/20 12:00 87 07/03/20 11:39 98.1 88 16 123/68 (86) 97 07/03/20 09:00 Non-Rebreather 15.0 07/03/20 08:00 90 07/03/20 08:00 97.7 80 18 113/71 (85) 96 Intake and Output 07/03/20 07/04/20 19:00 07:00 Intake Total 740 ml 480 ml Output Total 1500 ml 850 ml Balance -760 ml -370 ml Intake Oral 740 ml 480 ml Output Urine Total 1500 ml 850 ml # Voids 3 # Bowel Movements 1 1 Laboratory Tests 07/03/20 11:25: POC Whole Blood Glucose [Pending] 07/03/20 20:51: POC Whole Blood Glucose 227H 07/04/20 05:20: POC Whole Blood Glucose 187H Height (Feet): 5 Height (Inches): 7.00 Weight (Pounds): 155 Objective Current Medications Medications (Trade) Dose Ordered Sig/Sunshine Route PRN Reason Start Time Stop Time Status Last Admin Dose Admin Acetaminophen (Tylenol) 650 mg Q6H PRN ORAL Pain 0-4/10 or Temp >100.4 F 06/29/20 04:15 07/29/20 04:14 Albuterol/ Ipratropium (Combivent Respimat) 1 puff Q6H PRN INH coughing/SOB 06/29/20 07:00 07/29/20 06:59 Cefepime HCl 2 gm/ Dextrose 55 ml @ 110 mls/hr EVERY 12 HOURS IVPB 07/03/20 13:00 07/10/20 12:59 07/03/20 21:04 Dexamethasone Sodium Phosphate (Decadron 4mg/ml vial) 6 mg DAILY IVP 07/04/20 09:00 07/09/20 09:01 Dextrose (Dextrose 50%) 25 ml Q30M PRN IV Hypoglycemia 06/29/20 18:30 09/27/20 18:29 Dextrose (Dextrose 50%) 50 ml Q30M PRN IV Hypoglycemia 06/29/20 18:30 09/27/20 18:29 Guaifenesin/ Dextromethorphan (Robitussin DM Syrup) 10 ml Q4H PRN ORAL For Cough 06/29/20 04:15 09/27/20 04:14 07/02/20 04:58 Heparin Sodium (Porcine) (Heparin 5000 units/ml) 5,000 units EVERY 12 HOURS SUBQ 06/29/20 09:00 08/13/20 08:59 07/03/20 21:05 Insulin Aspart (NovoLOG) BEFORE MEALS AND HS SUBQ 06/29/20 06:30 09/27/20 06:29 07/04/20 05:26 Insulin Aspart (NovoLOG) 4 units NOVOTIAC SUBQ 07/03/20 11:50 09/27/20 18:29 07/04/20 05:27 Insulin Detemir (Levemir) 12 units DAILY SUBQ 07/03/20 09:00 09/27/20 20:59 07/03/20 08:17 Morphine Sulfate (Morphine Sulfate) 2 mg Q4H PRN IVP For Pain Scale 5-10 06/29/20 04:15 07/06/20 04:14 Ondansetron HCl (Zofran) 4 mg Q6H PRN IVP Nausea & Vomiting 06/29/20 04:15 07/29/20 04:14 Remdesivir 100 mg/ Sodium Chloride 250 ml @ 250 mls/hr Q24H IV 07/04/20 18:00 07/07/20 18:59 Sodium Chloride 1,000 ml @ 60 mls/hr [id number] IV 06/29/20 05:30 07/29/20 05:29 07/04/20 02:34 Vancomycin HCl (Vanco pharmacy to dose) 1 ea DAILY PRN MISC . 06/29/20 16:30 07/29/20 15:29 Vancomycin HCl 1 gm/Dextrose 275 ml @ 183.708 mls/hr Q8H IVPB 07/03/20 08:00 07/08/20 07:59 07/04/20 00:08 Assessment/Plan Problem List: (1) Diabetes mellitus out of control ICD Codes: E11.65 - Type 2 diabetes mellitus with hyperglycemia SNOMED: 67395106, [id number] (2) Pneumonia due to COVID-19 virus ICD Codes: U07.1 - COVID-19; J12.89 - Other viral pneumonia SNOMED: 510973093520144212 Status: stable, progressing Assessment/Plan: continue Levemir 12 units qam continue Novolog 4 units ac tid continue Novolog sliding scale ac hs Lucio Portillo MD Jul 04, 2020 06:42
[2020-07-04 06:56] LABS: HEMATOCRIT 42.3 % (42.0-52.0); HEMOGLOBIN 15.4 G/DL (14.2-18.0); MEAN CORPUSCULAR VOLUME 94 FL (80-99); PLATELET COUNT 226 K/UL (150-450); RED BLOOD COUNT 4.52 M/UL (4.70-6.10); RED CELL DISTRIBUTION WIDTH 11.5 % (11.6-14.8); WHITE BLOOD COUNT 10.3 K/UL (4.8-10.8)
[2020-07-04 07:22] LABS: ANION GAP 7 mmol/L (5-15); BLOOD UREA NITROGEN 10 mg/dL (7-18); CALCIUM 7.9 MG/DL (8.5-10.1); CARBON DIOXIDE 25 MMOL/L (21-32); CHLORIDE 101 MMOL/L (98-107); CREATININE 0.5 MG/DL (0.55-1.30); POTASSIUM 4.8 MMOL/L (3.5-5.1); SODIUM 133 MMOL/L (136-145)
--- NOTE | 2020-07-04 07:49 | NUR ---
NURSE NOTES: Received report from ALICIA Gallardo. Pt is stable and sitting high fowlers eating breakfast. Pt is on NRB 15LPM, no s/s or complaint of distress at this time. Skin intact. RFA running fluids at 60cc unsymptomatic and intact. Pt bed low and locked, call light in reach and bed alarm on. Pt verbalizes understanding to call for help.
[2020-07-04 08:00] VITALS: BP 117/73
[2020-07-04] MEDS: Heparin 5000 units/ml inj SUBQ SCH ×2 (08:22→21:00)
[2020-07-04] MEDS: Levemir Flexpen SUBQ SCH (08:23)
[2020-07-04] MEDS: guaiFENesin /DM 10ml syrup ORAL PRN (08:38)
--- NOTE | 2020-07-04 09:53 | Infectious Diseases Prog Note ---
Assessment/Plan Assessment/Plan A 1. pneumonia with COVID19 2. coag neg staph likely contaminated 3. Diabetes mellitus 4. Hypertension 5. Hypoxemia P 1. Discontinue iv vancomycin 2. Continue cefepime 3. Continue Decadron & Remdisivir 3. will follow up cultures Subjective ROS Limited/Unobtainable: Yes Constitutional: Reports: no symptoms Respiratory: Reports: shortness of breath, dry cough Gastrointestinal/Abdominal: Reports: no symptoms Genitourinary: Reports: no symptoms Allergies: Coded Allergies: No Known Allergies (Unverified , 07/11/18) Objective Last 24 Hour Vital Signs Date Time Temp Pulse Resp B/P (MAP) Pulse Ox O2 Delivery O2 Flow Rate FiO2 07/04/20 09:00 Non-Rebreather 15.0 07/04/20 08:10 97 Non-Rebreather 15.0 100 07/04/20 08:00 86 07/04/20 08:00 96.8 96 20 117/73 (88) 95 07/04/20 04:00 67 07/04/20 04:00 97.8 68 18 131/70 (90) 95 07/04/20 00:00 68 07/04/20 00:00 98.0 74 18 134/67 (89) 98 07/03/20 21:00 Non-Rebreather 15.0 07/03/20 20:00 98.5 82 18 132/74 (93) 96 07/03/20 20:00 84 07/03/20 16:00 78 07/03/20 16:00 98.2 82 16 125/71 (89) 98 07/03/20 12:00 87 07/03/20 11:39 98.1 88 16 123/68 (86) 97 Height (Feet): 5 Height (Inches): 7.00 Weight (Pounds): 155 HEENT: mucous membranes moist Respiratory/Chest: decreased breath sounds, other - oxygen by rebreathing mask Cardiovascular: normal rate Abdomen: soft, non tender Extremities: no edema Neurologic/Psychiatric: alert, oriented x 3, responsive Laboratory Tests Test 07/03/20 11:25 07/03/20 20:51 07/04/20 05:20 07/04/20 06:50 POC Whole Blood Glucose Pending 227 MG/DL (74-106) H 187 MG/DL (74-106) H White Blood Count 10.3 K/UL (4.8-10.8) Red Blood Count 4.52 M/UL (4.70-6.10) L Hemoglobin 15.4 G/DL (14.2-18.0) Hematocrit 42.3 % (42.0-52.0) Mean Corpuscular Volume 94 FL (80-99) Mean Corpuscular Hemoglobin 34.1 PG (27.0-31.0) H Mean Corpuscular Hemoglobin Concent 36.5 G/DL (32.0-36.0) H Red Cell Distribution Width 11.5 % (11.6-14.8) L Platelet Count 226 K/UL (150-450) Mean Platelet Volume 6.9 FL (6.5-10.1) Neutrophils (%) (Auto) % (45.0-75.0) Lymphocytes (%) (Auto) % (20.0-45.0) Monocytes (%) (Auto) % (1.0-10.0) Eosinophils (%) (Auto) % (0.0-3.0) Basophils (%) (Auto) % (0.0-2.0) Differential Total Cells Counted 100 Neutrophils % (Manual) 90 % (45-75) H Lymphocytes % (Manual) 5 % (20-45) L Monocytes % (Manual) 5 % (1-10) Eosinophils % (Manual) 0 % (0-3) Basophils % (Manual) 0 % (0-2) Band Neutrophils 0 % (0-8) Platelet Estimate Adequate Platelet Morphology Normal Red Blood Cell Morphology Normal Sodium Level 133 MMOL/L (136-145) L Potassium Level 4.8 MMOL/L (3.5-5.1) Chloride Level 101 MMOL/L (98-107) Carbon Dioxide Level 25 MMOL/L (21-32) Anion Gap 7 mmol/L (5-15) Blood Urea Nitrogen 10 mg/dL (7-18) Creatinine 0.5 MG/DL (0.55-1.30) L Estimat Glomerular Filtration Rate > 60 mL/min (>60) Glucose Level 197 MG/DL (74-106) #H Calcium Level 7.9 MG/DL (8.5-10.1) L Vancomycin Level Trough 16.6 ug/mL (5.0-12.0) H Current Medications Medications (Trade) Dose Ordered Sig/Sunshine Route PRN Reason Start Time Stop Time Status Last Admin Dose Admin Acetaminophen (Tylenol) 650 mg Q6H PRN ORAL Pain 0-4/10 or Temp >100.4 F 06/29/20 04:15 07/29/20 04:14 Albuterol/ Ipratropium (Combivent Respimat) 1 puff Q6H PRN INH coughing/SOB 06/29/20 07:00 07/29/20 06:59 Cefepime HCl 2 gm/ Dextrose 55 ml @ 110 mls/hr EVERY 12 HOURS IVPB 07/03/20 13:00 07/10/20 12:59 07/03/20 21:04 Dexamethasone Sodium Phosphate (Decadron 4mg/ml vial) 6 mg DAILY IVP 07/04/20 09:00 07/09/20 09:01 07/04/20 08:21 Dextrose (Dextrose 50%) 25 ml Q30M PRN IV Hypoglycemia 06/29/20 18:30 09/27/20 18:29 Dextrose (Dextrose 50%) 50 ml Q30M PRN IV Hypoglycemia 06/29/20 18:30 09/27/20 18:29 Guaifenesin/ Dextromethorphan (Robitussin DM Syrup) 10 ml Q4H PRN ORAL For Cough 06/29/20 04:15 09/27/20 04:14 07/04/20 08:38 Heparin Sodium (Porcine) (Heparin 5000 units/ml) 5,000 units EVERY 12 HOURS SUBQ 06/29/20 09:00 08/13/20 08:59 07/04/20 08:22 Insulin Aspart (NovoLOG) BEFORE MEALS AND HS SUBQ 06/29/20 06:30 09/27/20 06:29 07/04/20 05:26 Insulin Aspart (NovoLOG) 4 units NOVOTIAC SUBQ 07/03/20 11:50 09/27/20 18:29 07/04/20 05:27 Insulin Detemir (Levemir) 12 units DAILY SUBQ 07/03/20 09:00 09/27/20 20:59 07/04/20 08:23 Morphine Sulfate (Morphine Sulfate) 2 mg Q4H PRN IVP For Pain Scale 5-10 06/29/20 04:15 07/06/20 04:14 Ondansetron HCl (Zofran) 4 mg Q6H PRN IVP Nausea & Vomiting 06/29/20 04:15 07/29/20 04:14 Remdesivir 100 mg/ Sodium Chloride 250 ml @ 250 mls/hr Q24H IV 07/04/20 18:00 07/07/20 18:59 Sodium Chloride 1,000 ml @ 60 mls/hr [id number] IV 06/29/20 05:30 07/29/20 05:29 07/04/20 02:34 Vancomycin HCl (Vanco pharmacy to dose) 1 ea DAILY PRN MISC . 06/29/20 16:30 07/29/20 15:29 Vancomycin HCl 1 gm/Dextrose 275 ml @ 183.708 mls/hr Q8H IVPB 07/03/20 08:00 07/08/20 07:59 07/04/20 08:18 Luther Moise MD Jul 04, 2020 09:52
[2020-07-04] MEDS: Cefepime HCl 2 GM in D5W 55 ML IVPB SCH ×2 (10:09→21:00)
[2020-07-04 10:26] LABS: ALANINE AMINOTRANSFERASE 179 U/L (12-78); ALBUMIN 2.4 G/DL (3.4-5.0); ALKALINE PHOSPHATASE 95 U/L (46-116); ASPARTATE AMINO TRANSFERASE 57 U/L (15-37); BILIRUBIN,DIRECT 0.3 MG/DL (0.0-0.3); BILIRUBIN,TOTAL 0.7 MG/DL (0.2-1.0)
--- NOTE | 2020-07-04 10:34 | Pulmonology Progress Note ---
Subjective ROS Limited/Unobtainable: Yes Interval Events: none major Constitutional: Reports: no symptoms HEENT: Repors: no symptoms Respiratory: Reports: dry cough Cardiovascular: Reports: no symptoms Gastrointestinal/Abdominal: Reports: no symptoms Musculoskeletal: Denies: pain Allergies: Coded Allergies: No Known Allergies (Unverified , 07/11/18) All Systems: reviewed and negative except above Objective Last 24 Hour Vital Signs Date Time Temp Pulse Resp B/P (MAP) Pulse Ox O2 Delivery O2 Flow Rate FiO2 07/04/20 09:00 Non-Rebreather 15.0 07/04/20 08:10 97 Non-Rebreather 15.0 100 07/04/20 08:00 86 07/04/20 08:00 96.8 96 20 117/73 (88) 95 07/04/20 04:00 67 07/04/20 04:00 97.8 68 18 131/70 (90) 95 07/04/20 00:00 68 07/04/20 00:00 98.0 74 18 134/67 (89) 98 07/03/20 21:00 Non-Rebreather 15.0 07/03/20 20:00 98.5 82 18 132/74 (93) 96 07/03/20 20:00 84 07/03/20 16:00 78 07/03/20 16:00 98.2 82 16 125/71 (89) 98 07/03/20 12:00 87 07/03/20 11:39 98.1 88 16 123/68 (86) 97 Intake and Output0 07/03/20 07/04/20 19:00 07:00 Intake Total 740 ml 480 ml Output Total 1500 ml 850 ml Balance -760 ml -370 ml Intake Oral 740 ml 480 ml Output Urine Total 1500 ml 850 ml # Voids 3 # Bowel Movements 1 1 Objective 07/04/2020 on NRB 15 L; saturating well 07/03/2020 now on NRB 15 L, pt reports he's breathing fine; due for dialysis today 07/02/2020 now at 10 L simple face mask saturating >92% 07/01/2020 per RN pt saturating at low 90s with 6 lpm oxygen simple face mask 06/30/2020 saturating 96% on 6 lpm simple face mask; pt subjectively feels better 06/29/2020 pt in bed; saturating 97% on 6 lpm simple face mask General Appearance: WD/WN, no acute distress HEENT: normocephalic Respiratory: chest wall non-tender, lungs clear, normal breath sounds Cardiovascular: normal rate, no gallop/murmur, tachycardia Laboratory Tests 07/03/20 11:25: POC Whole Blood Glucose [Pending] 07/03/20 20:51: POC Whole Blood Glucose 227H 07/04/20 05:20: POC Whole Blood Glucose 187H 07/04/20 06:50: White Blood Count 10.3, Red Blood Count 4.52L, Hemoglobin 15.4, Hematocrit 42.3, Mean Corpuscular Volume 94, Mean Corpuscular Hemoglobin 34.1H, Mean Corpuscular Hemoglobin Concent 36.5H, Red Cell Distribution Width 11.5L, Platelet Count 226, Mean Platelet Volume 6.9, Neutrophils (%) (Auto) , Lymphocytes (%) (Auto) , Monocytes (%) (Auto) , Eosinophils (%) (Auto) , Basophils (%) (Auto) , Differential Total Cells Counted 100, Neutrophils % (Manual) 90H, Lymphocytes % (Manual) 5L, Monocytes % (Manual) 5, Eosinophils % (Manual) 0, Basophils % (Manual) 0, Band Neutrophils 0, Platelet Estimate Adequate, Platelet Morphology Normal, Red Blood Cell Morphology Normal, Sodium Level 133L, Potassium Level 4.8, Chloride Level 101, Carbon Dioxide Level 25, Anion Gap 7, Blood Urea Nitrogen 10, Creatinine 0.5L, Estimat Glomerular Filtration Rate > 60, Glucose Level 197#H, Calcium Level 7.9L, Total Bilirubin [Pending], Direct Bilirubin [Pending], Aspartate Amino Transf (AST/SGOT) [Pending], Alanine Aminotransferase (ALT/SGPT) [Pending], Alkaline Phosphatase [Pending], Total Protein [Pending], Albumin [Pending], Vancomycin Level Trough 16.6H Current Medications Medications (Trade) Dose Ordered Sig/Sunshine Route PRN Reason Start Time Stop Time Status Last Admin Dose Admin Acetaminophen (Tylenol) 650 mg Q6H PRN ORAL Pain 0-4/10 or Temp >100.4 F 06/29/20 04:15 07/29/20 04:14 Albuterol/ Ipratropium (Combivent Respimat) 1 puff Q6H PRN INH coughing/SOB 06/29/20 07:00 07/29/20 06:59 Cefepime HCl 2 gm/ Dextrose 55 ml @ 110 mls/hr EVERY 12 HOURS IVPB 07/03/20 13:00 07/10/20 12:59 07/04/20 10:09 Dexamethasone Sodium Phosphate (Decadron 4mg/ml vial) 6 mg DAILY IVP 07/04/20 09:00 07/09/20 09:01 07/04/20 08:21 Dextrose (Dextrose 50%) 25 ml Q30M PRN IV Hypoglycemia 06/29/20 18:30 09/27/20 18:29 Dextrose (Dextrose 50%) 50 ml Q30M PRN IV Hypoglycemia 06/29/20 18:30 09/27/20 18:29 Guaifenesin/ Dextromethorphan (Robitussin DM Syrup) 10 ml Q4H PRN ORAL For Cough 06/29/20 04:15 09/27/20 04:14 07/04/20 08:38 Heparin Sodium (Porcine) (Heparin 5000 units/ml) 5,000 units EVERY 12 HOURS SUBQ 06/29/20 09:00 08/13/20 08:59 07/04/20 08:22 Insulin Aspart (NovoLOG) BEFORE MEALS AND HS SUBQ 06/29/20 06:30 09/27/20 06:29 07/04/20 05:26 Insulin Aspart (NovoLOG) 4 units NOVOTIAC SUBQ 07/03/20 11:50 09/27/20 18:29 07/04/20 05:27 Insulin Detemir (Levemir) 12 units DAILY SUBQ 07/03/20 09:00 09/27/20 20:59 07/04/20 08:23 Morphine Sulfate (Morphine Sulfate) 2 mg Q4H PRN IVP For Pain Scale 5-10 06/29/20 04:15 07/06/20 04:14 Ondansetron HCl (Zofran) 4 mg Q6H PRN IVP Nausea & Vomiting 06/29/20 04:15 07/29/20 04:14 Remdesivir 100 mg/ Sodium Chloride 250 ml @ 250 mls/hr Q24H IV 07/04/20 18:00 07/07/20 18:59 Sodium Chloride 1,000 ml @ 60 mls/hr [id number] IV 06/29/20 05:30 07/29/20 05:29 07/04/20 02:34 Assessment/Plan Assessment/Plan 1. Bilateral pulmonary infiltrates, high suspicion for COVID-19 pneumonia. Now confirmed - s/p dexamethasone; now also on Remdesivir - s/p empiric Abx - currently on 15 L NRB saturating well; s/p failed attempt on 6-10L oxygen via simple face mask due to desaturation down to 80s. - 06/28/2020 COVID-19 test neg; pcr test positive 2. Elevated inflammatory markers. 3. Negative initial rapid gene testing for COVID-19. pcR however positive 4. Hx of hypertension. 5. DM - on glucose-lowering agents 6. Fever. - resolved 7. Bacteremia - on Abx per ID We will follow carefully. The care for this patient was discussed with my supervising physician Time spent for this case was approximately 31 minutes The patient was seen and examined at bedside and all new and available data was reviewed in the patients chart. I agree with the above findings, impression, and plan. (Patient was seen earlier today. Signature timestamp does not reflect patient encounter time) Zhen Austin MD Jul 04, 2020 10:34 Eloy Garg MD Jul 04, 2020 18:06
--- NOTE | 2020-07-04 10:44 | NUR ---
NURSE NOTES: Jama made aware of Ca and Na 133 lab. no new orders. Pt is stable
[2020-07-04 11:48] VITALS: BP 127/75
--- NOTE | 2020-07-04 11:53 | NUR ---
[employer]END[employer]ES [employer]ER SI: RESP FAILURE, COVID + T. 97.3 HR 87 RR 18 B/P 127/71 NRM FIO2 100% IS: REDEMSIVIR IV DECADRON IV IVF NS @ 60ML/HR TELE STATUS
--- NOTE | 2020-07-04 11:56 | NUR ---
CASTING TECHNICIAN NOTES CLINICALS REVIEWED AND FAXED.
[2020-07-04 16:00] VITALS: BP 119/78
--- NOTE | 2020-07-04 17:33 | NUR ---
NURSE HAND-OFF REPORT: Important Events on Shift: Patient Status: Fc, Stable Diet: [] Pending Orders: [] Pending Results/Labs:[] Pending MD notification:[] Latest Vital Signs: Temperature 97.5 , Pulse 71 , B/P 119 /78 , Respiratory Rate 20 , O2 SAT 99 , Non-Rebreather, O2 Flow Rate 15.0 . Vital Sign Comment: [] EKG Rhythm: Sinus Rhythm Rhythm change?: N Notified?: - MD Response: Latest Stafford Fall Score: 20 Fall Risk: Low Risk Safety Measures: Call light Within Reach, Bed Alarm Zone 2, Side Rails Side Rails x2, Bed position Low and Locked. Fall Precautions: Yellow Socks Yellow Gown Patient Fall Education Report given to []. Addendum: 07/04/20 at 1734 by Delmi Beth RN RN NURSE HAND-OFF REPORT: Important Events on Shift: Patient Status: fc, stable Diet: low sodium ccho med Pending Orders: Pending Results/Labs: Pending MD notification: Latest Vital Signs: Temperature 97.5 , Pulse 71 , B/P 119 /78 , Respiratory Rate 20 , O2 SAT 99 , Non-Rebreather, O2 Flow Rate 15.0 . Vital Sign Comment: EKG Rhythm: Sinus Rhythm Rhythm change?: N Notified?: - MD Response: Latest Stafford Fall Score: 20 Fall Risk: Low Risk Safety Measures: Call light Within Reach, Bed Alarm Zone 2, Side Rails Side Rails x2, Bed position Low and Locked. Fall Precautions: Yellow Socks Yellow Gown Patient Fall Education Report to be given. Addendum: 07/04/20 at 1950 by Delmi Beth RN RN report given to mala VARGAS. Pt is stable.
[2020-07-04] MEDS: Maintenance Dose:Remdesivir 100mg/NS 230ml x 4 Doses IV SCH ×2 (18:33)
--- NOTE | 2020-07-04 19:15 | NUR ---
NURSE NOTES: Received report from Delmi VARGAS. Pt is stable and resting in bed comfortably. Pt is on NRB 15LPM, no s/s of distress or discomfort at this time. Skin intact. Pt has RFA 22g w/ 1/2NS@60 patent and intact. Pt bed low and locked, call light in reach and beside table within reach. Pt verbalizes understanding to call for help. Continue to monitor.
[2020-07-04 20:00] VITALS: BP 138/74
--- NOTE | 2020-07-04 20:47 | General Progress Note ---
Subjective ROS Limited/Unobtainable: Yes Allergies: Coded Allergies: No Known Allergies (Unverified , 07/11/18) Objective Last 24 Hour Vital Signs Date Time Temp Pulse Resp B/P (MAP) Pulse Ox O2 Delivery O2 Flow Rate FiO2 07/04/20 16:00 97.5 78 20 119/78 (92) 99 07/04/20 16:00 71 07/04/20 12:00 85 07/04/20 11:48 97.3 87 18 127/75 (92) 95 07/04/20 09:00 Non-Rebreather 15.0 07/04/20 08:10 97 Non-Rebreather 15.0 100 07/04/20 08:00 86 07/04/20 08:00 96.8 96 20 117/73 (88) 95 07/04/20 04:00 67 07/04/20 04:00 97.8 68 18 131/70 (90) 95 07/04/20 00:00 68 07/04/20 00:00 98.0 74 18 134/67 (89) 98 07/03/20 21:00 Non-Rebreather 15.0 Intake and Output 07/03/20 07/04/20 19:00 07:00 Intake Total 740 ml 480 ml Output Total 1500 ml 850 ml Balance -760 ml -370 ml Intake Oral 740 ml 480 ml Output Urine Total 1500 ml 850 ml # Voids 3 # Bowel Movements 1 1 Laboratory Tests 07/03/20 20:51: POC Whole Blood Glucose 227H 07/04/20 05:20: POC Whole Blood Glucose 187H 07/04/20 06:50: White Blood Count 10.3, Red Blood Count 4.52L, Hemoglobin 15.4, Hematocrit 42.3, Mean Corpuscular Volume 94, Mean Corpuscular Hemoglobin 34.1H, Mean Corpuscular Hemoglobin Concent 36.5H, Red Cell Distribution Width 11.5L, Platelet Count 226, Mean Platelet Volume 6.9, Neutrophils (%) (Auto) , Lymphocytes (%) (Auto) , Mo nocytes (%) (Auto) , Eosinophils (%) (Auto) , Basophils (%) (Auto) , Differential Total Cells Counted 100, Neutrophils % (Manual) 90H, Lymphocytes % (Manual) 5L, Monocytes % (Manual) 5, Eosinophils % (Manual) 0, Basophils % (Manual) 0, Band Neutrophils 0, Platelet Estimate Adequate, Platelet Morphology Normal, Red Blood Cell Morphology Normal, Sodium Level 133L, Potassium Level 4.8, Chloride Level 101, Carbon Dioxide Level 25, Anion Gap 7, Blood Urea Nitrogen 10, Creatinine 0.5L, Estimat Glomerular Filtration Rate > 60, Glucose Level 197#H, Calcium Level 7.9L, Total Bilirubin 0.7, Direct Bilirubin 0.3, Aspartate Amino Transf (AST/SGOT) 57H, Alanine Aminotransferase (ALT/SGPT) 179H, Alkaline Phosphatase 95, Total Protein 6.2L, Albumin 2.4L, Vancomycin Level Trough 16.6H 07/04/20 11:41: POC Whole Blood Glucose 263H Height (Feet): 5 Height (Inches): 7.00 Weight (Pounds): 155 Assessment/Plan Problem List: (1) Diabetes mellitus out of control ICD Codes: E11.65 - Type 2 diabetes mellitus with hyperglycemia SNOMED: 62389227, 361896559 (2) Pneumonia due to COVID-19 virus ICD Codes: U07.1 - COVID-19; J12.89 - Other viral pneumonia SNOMED: 628741597464615185 (3) Diabetes ICD Codes: E11.9 - Type 2 diabetes mellitus without complications SNOMED: 45516866 (4) Malnutrition ICD Codes: E46 - Unspecified protein-calorie malnutrition SNOMED: 97434435 (5) Hypoxia ICD Codes: R09.02 - Hypoxemia; J12.89 - Other viral pneumonia SNOMED: 219268683 (6) UTI (urinary tract infection) ICD Codes: N39.0 - Urinary tract infection, site not specified SNOMED: 80553907 (7) Pneumonia ICD Codes: J18.9 - Pneumonia, unspecified organism SNOMED: 156173677 (8) HTN (hypertension) ICD Codes: I10 - Essential (primary) hypertension SNOMED: 69797037 Status: stable, progressing Assessment/Plan: resp insuff covid + dm elevated sugar uti hypoxia htn reviewed chart and labs Tory Schaffer MD Jul 04, 2020 20:47
[2020-07-04] MEDS ORDERED: Tubing IV Secondary IV ONE (22:32)
[2020-07-04] MEDS ORDERED: NS 275ml ONE (22:32)
[2020-07-04] MEDS ORDERED: 1/2 NS 1000ml IV ONE (22:45)
[2020-07-05] VITALS: BP 128/77
[2020-07-05 04:00] VITALS: BP 130/75
[2020-07-05] MEDS: NovoLOG Insulin Flexpen SUBQ SCH ×7 (06:18→21:27)
--- NOTE | 2020-07-05 06:18 | Hematology/Onc Progress Note ---
Assessment/Plan Assessment/Plan Assessment and recs # Leukocytosis due to Bilateral pulmonary infiltrates, high suspicion for COVID- 19 pneumonia. --> on dexamethasone --> s/p empiric Abx cefepime --> currently on 10 lpm NC saturating well; --> wbc 12-->13 # Elevated ddimer with covid19 pna --> did receive abx since admission --> oxygen supplementation as per before --> pulm re-eval --> venous duplex legs as needed, but hold off, stable for dc # Hypoxia --> 10l Fm, adjust as needed v nonrebreather # Type 2 diabetes # Hypertension # Bacteremia --> per id, on Abx # Dvt ppx heparin sq Appreciate consultation and heydi RN Subjective Constitutional: Denies: no symptoms, chills, fever, malaise, weakness, other HEENT: Denies: no symptoms, eye pain, blurred vision, tearing, double vision, ear pain, ear discharge, nose pain, nose congestion, throat pain, throat swelling, mouth pain, mouth swelling, other Cardiovascular: Denies: no symptoms, chest pain, edema, irregular heart rate, lightheadedness, palpitations, syncope, other Respiratory: Denies: no symptoms, cough, shortness of breath, SOB with excertion, SOB at rest, sputum, wheezing, other Gastrointestinal/Abdominal: Denies: no symptoms, abdomen distended, abdominal pain, black stools, tarry stools, blood in stool, constipated, diarrhea, difficulty swallowing, nausea, poor appetite, poor fluid intake, rectal bleedin g, vomiting, other Neurologic/Psychiatric: Denies: no symptoms, anxiety, depressed, emotional problems, headache, numbness, paresthesia, pre-existing deficit, seizure, tingling, tremors, weakness, other Endocrine: Denies: no symptoms, excessive sweating, flushing, intolerance to cold, intolerance to heat, increased hunger, increased thirst, increased urine, unexplained weight gain, unexplained weight loss, other Allergies: Coded Allergies: No Known Allergies (Unverified , 07/11/18) Subjective 07/04 nonrebreather, meds noted, no bleeding, cbc pending 07/05 labs noted, no bleeding, nrm, no night sweats, heydi rn Objective Objective Current Medications Medications (Trade) Dose Ordered Sig/Sunshine Route PRN Reason Start Time Stop Time Status Last Admin Dose Admin Acetaminophen (Tylenol) 650 mg Q6H PRN ORAL Pain 0-4/10 or Temp >100.4 F 06/29/20 04:15 07/29/20 04:14 Albuterol/ Ipratropium (Combivent Respimat) 1 puff Q6H PRN INH coughing/SOB 06/29/20 07:00 07/29/20 06:59 Cefepime HCl 2 gm/ Dextrose 55 ml @ 110 mls/hr EVERY 12 HOURS IVPB 07/03/20 13:00 07/10/20 12:59 07/04/20 21:00 Dexamethasone Sodium Phosphate (Decadron 4mg/ml vial) 6 mg DAILY IVP 07/04/20 09:00 07/09/20 09:01 07/04/20 08:21 Dextrose (Dextrose 50%) 25 ml Q30M PRN IV Hypoglycemia 06/29/20 18:30 09/27/20 18:29 Dextrose (Dextrose 50%) 50 ml Q30M PRN IV Hypoglycemia 06/29/20 18:30 09/27/20 18:29 Guaifenesin/ Dextromethorphan (Robitussin DM Syrup) 10 ml Q4H PRN ORAL For Cough 06/29/20 04:15 09/27/20 04:14 07/04/20 08:38 Heparin Sodium (Porcine) (Heparin 5000 units/ml) 5,000 units EVERY 12 HOURS SUBQ 06/29/20 09:00 08/13/20 08:59 07/04/20 21:00 Insulin Aspart (NovoLOG) BEFORE MEALS AND HS SUBQ 06/29/20 06:30 09/27/20 06:29 07/04/20 21:00 Insulin Aspart (NovoLOG) 4 units NOVOTIAC SUBQ 07/03/20 11:50 09/27/20 18:29 07/04/20 16:42 Insulin Detemir (Levemir) 12 units DAILY SUBQ 07/03/20 09:00 09/27/20 20:59 07/04/20 08:23 Morphine Sulfate (Morphine Sulfate) 2 mg Q4H PRN IVP For Pain Scale 5-10 06/29/20 04:15 07/06/20 04:14 Ondansetron HCl (Zofran) 4 mg Q6H PRN IVP Nausea & Vomiting 06/29/20 04:15 07/29/20 04:14 Remdesivir 100 mg/ Sodium Chloride 250 ml @ 250 mls/hr Q24H IV 07/04/20 18:00 07/07/20 18:59 07/04/20 18:33 Sodium Chloride 1,000 ml @ 60 mls/hr [id number] IV 06/29/20 05:30 07/29/20 05:29 07/04/20 18:50 Last 24 Hour Vital Signs Date Time Temp Pulse Resp B/P (MAP) Pulse Ox O2 Delivery O2 Flow Rate FiO2 07/05/20 04:00 97.5 65 20 130/75 (93) 97 07/05/20 04:00 69 07/05/20 00:00 65 07/05/20 00:00 97.0 63 20 128/77 (94) 96 07/04/20 21:00 Non-Rebreather 15.0 07/04/20 20:00 97.9 70 20 138/74 (95) 96 07/04/20 20:00 69 07/04/20 16:00 97.5 78 20 119/78 (92) 99 07/04/20 16:00 71 07/04/20 12:00 85 07/04/20 11:48 97.3 87 18 127/75 (92) 95 07/04/20 09:00 Non-Rebreather 15.0 07/04/20 08:10 97 Non-Rebreather 15.0 100 07/04/20 08:00 86 07/04/20 08:00 96.8 96 20 117/73 (88) 95 07/04/20 04:00 67 07/04/20 04:00 97.8 68 18 131/70 (90) 95 07/04/20 00:00 68 07/04/20 00:00 98.0 74 18 134/67 (89) 98 07/03/20 21:00 Non-Rebreather 15.0 07/03/20 20:00 98.5 82 18 132/74 (93) 96 07/03/20 20:00 84 07/03/20 16:00 78 07/03/20 16:00 98.2 82 16 125/71 (89) 98 07/03/20 12:00 87 07/03/20 11:39 98.1 88 16 123/68 (86) 97 07/03/20 09:00 Non-Rebreather 15.0 07/03/20 08:00 90 07/03/20 08:00 97.7 80 18 113/71 (85) 96 Intake and Output 07/04/20 07/05/20 19:00 07:00 Intake Total 900 ml Output Total 1800 ml Balance -900 ml Intake Oral 900 ml Output Urine Total 1800 ml # Bowel Movements 1 1 Labs Test 07/02/20 22:03 07/03/20 04:35 07/03/20 05:10 07/03/20 05:52 POC Whole Blood Glucose 120 MG/DL (74-106) 67 MG/DL (74-106) White Blood Count 12.9 K/UL (4.8-10.8) Red Blood Count 4.74 M/UL (4.70-6.10) Hemoglobin 16.0 G/DL (14.2-18.0) Hematocrit 41.6 % (42.0-52.0) Mean Corpuscular Volume 88 FL (80-99) Mean Corpuscular Hemoglobin 33.7 PG (27.0-31.0) Mean Corpuscular Hemoglobin Concent 38.4 G/DL (32.0-36.0) Red Cell Distribution Width 12.9 % (11.6-14.8) Platelet Count 225 K/UL (150-450) Mean Platelet Volume 8.9 FL (6.5-10.1) Neutrophils (%) (Auto) % (45.0-75.0) Lymphocytes (%) (Auto) % (20.0-45.0) Monocytes (%) (Auto) % (1.0-10.0) Eosinophils (%) (Auto) % (0.0-3.0) Basophils (%) (Auto) % (0.0-2.0) Sodium Level 136 MMOL/L (136-145) Potassium Level 3.9 MMOL/L (3.5-5.1) Chloride Level 103 MMOL/L (98-107) Carbon Dioxide Level 23 MMOL/L (21-32) Anion Gap 10 mmol/L (5-15) Blood Urea Nitrogen 10 mg/dL (7-18) Creatinine 0.6 MG/DL (0.55-1.30) Estimat Glomerular Filtration Rate > 60 mL/min (>60) Glucose Level 63 MG/DL (74-106) Hemoglobin A1c 7.1 % (4.3-6.0) Calcium Level 8.4 MG/DL (8.5-10.1) Vancomycin Level Trough 9.2 ug/mL (5.0-12.0) Test 07/03/20 11:25 07/03/20 20:51 07/04/20 05:20 07/04/20 06:50 POC Whole Blood Glucose 227 MG/DL (74-106) 187 MG/DL (74-106) White Blood Count 10.3 K/UL (4.8-10.8) Red Blood Count 4.52 M/UL (4.70-6.10) Hemoglobin 15.4 G/DL (14.2-18.0) Hematocrit 42.3 % (42.0-52.0) Mean Corpuscular Volume 94 FL (80-99) Mean Corpuscular Hemoglobin 34.1 PG (27.0-31.0) Mean Corpuscular Hemoglobin Concent 36.5 G/DL (32.0-36.0) Red Cell Distribution Width 11.5 % (11.6-14.8) Platelet Count 226 K/UL (150-450) Mean Platelet Volume 6.9 FL (6.5-10.1) Neutrophils (%) (Auto) % (45.0-75.0) Lymphocytes (%) (Auto) % (20.0-45.0) Monocytes (%) (Auto) % (1.0-10.0) Eosinophils (%) (Auto) % (0.0-3.0) Basophils (%) (Auto) % (0.0-2.0) Differential Total Cells Counted 100 Neutrophils % (Manual) 90 % (45-75) Lymphocytes % (Manual) 5 % (20-45) Monocytes % (Manual) 5 % (1-10) Eosinophils % (Manual) 0 % (0-3) Basophils % (Manual) 0 % (0-2) Band Neutrophils 0 % (0-8) Platelet Estimate Adequate Platelet Morphology Normal Red Blood Cell Morphology Normal Sodium Level 133 MMOL/L (136-145) Potassium Level 4.8 MMOL/L (3.5-5.1) Chloride Level 101 MMOL/L (98-107) Carbon Dioxide Level 25 MMOL/L (21-32) Anion Gap 7 mmol/L (5-15) Blood Urea Nitrogen 10 mg/dL (7-18) Creatinine 0.5 MG/DL (0.55-1.30) Estimat Glomerular Filtration Rate > 60 mL/min (>60) Glucose Level 197 MG/DL (74-106) Calcium Level 7.9 MG/DL (8.5-10.1) Total Bilirubin 0.7 MG/DL (0.2-1.0) Direct Bilirubin 0.3 MG/DL (0.0-0.3) Aspartate Amino Transf (AST/SGOT) 57 U/L (15-37) Alanine Aminotransferase (ALT/SGPT) 179 U/L (12-78) Alkaline Phosphatase 95 U/L (46-116) Total Protein 6.2 G/DL (6.4-8.2) Albumin 2.4 G/DL (3.4-5.0) Vancomycin Level Trough 16.6 ug/mL (5.0-12.0) Test 07/04/20 11:41 POC Whole Blood Glucose 263 MG/DL (74-106) Height (Feet): 5 Height (Inches): 7.00 Weight (Pounds): 155 Objective General: moderate distress Heent: normocephalic, atraumatic Neck: supple Resp: no respiratory distress, no retraction, ++ nonrebreather Cardiovascular: tachycardia Gastrointestinal: non tender, soft Genitourinary: no CVA tenderness Musculoskeletal: back normal, no calf tenderness Neurologic: alert, motor strength/tone normal, oriented x3, sensory intact Skin: no rash Lymphatic: no adenopathy Ever Mcadams MD Jul 05, 2020 06:18
--- NOTE | 2020-07-05 06:34 | General Progress Note ---
Subjective Allergies: Coded Allergies: No Known Allergies (Unverified , 07/11/18) Subjective events noted interval notes reviewed fair glycemic control Item Value Date Time Bedside Blood Glucose 104 mg/dl 07/05/20 0620 Bedside Blood Glucose 166 mg/dl H 07/04/20 2100 Bedside Blood Glucose 199 mg/dl H 07/04/20 1642 Bedside Blood Glucose 263 mg/dl H 07/04/20 1146 Bedside Blood Glucose 197 mg/dl H 07/04/20 0823 Bedside Blood Glucose 187 mg/dl H 07/04/20 0527 Objective Last 24 Hour Vital Signs Date Time Temp Pulse Resp B/P (MAP) Pulse Ox O2 Delivery O2 Flow Rate FiO2 07/05/20 04:00 97.5 65 20 130/75 (93) 97 07/05/20 04:00 69 07/05/20 00:00 65 07/05/20 00:00 97.0 63 20 128/77 (94) 96 07/04/20 21:00 Non-Rebreather 15.0 07/04/20 20:00 97.9 70 20 138/74 (95) 96 07/04/20 20:00 69 07/04/20 16:00 97.5 78 20 119/78 (92) 99 07/04/20 16:00 71 07/04/20 12:00 85 07/04/20 11:48 97.3 87 18 127/75 (92) 95 07/04/20 09:00 Non-Rebreather 15.0 07/04/20 08:10 97 Non-Rebreather 15.0 100 07/04/20 08:00 86 07/04/20 08:00 96.8 96 20 117/73 (88) 95 l Intake and Output 07/04/20 07/05/20 19:00 07:00 Intake Total 900 ml Output Total 1800 ml 1300 ml Balance -900 ml -1300 ml Intake Oral 900 ml Output Urine Total 1800 ml 1300 ml # Bowel Movements 1 1 Laboratory Tests 07/04/20 06:50: White Blood Count 10.3, Red Blood Count 4.52L, Hemoglobin 15.4, Hematocrit 42.3, Mean Corpuscular Volume 94, Mean Corpuscular Hemoglobin 34.1H, Mean Corpuscular Hemoglobin Concent 36.5H, Red Cell Distribution Width 11.5L, Platelet Count 226, Mean Platelet Volume 6.9, Neutrophils (%) (Auto) , Lymphocytes (%) (Auto) , Monocytes (%) (Auto) , Eosinophils (%) (Auto) , Basophils (%) (Auto) , Differential Total Cells Counted 100, Neutrophils % (Manual) 90H, Lymphocytes % (Manual) 5L, Monocytes % (Manual) 5, Eosinophils % (Manual) 0, Basophils % (Manual) 0, Band Neutrophils 0, Platelet Estimate Adequate, Platelet Morphology Normal, Red Blood Cell Morphology Normal, Sodium Level 133L, Potassium Level 4.8, Chloride Level 101, Carbon Dioxide Level 25, Anion Gap 7, Blood Urea Nitrogen 10, Creatinine 0.5L, Estimat Glomerular Filtration Rate > 60, Glucose Level 197#H, Calcium Level 7.9L, Total Bilirubin 0.7, Direct Bilirubin 0.3, Aspartate Amino Transf (AST/SGOT) 57H, Alanine Aminotransferase (ALT/SGPT) 179H, Alkaline Phosphatase 95, Total Protein 6.2L, Albumin 2.4L, Vancomycin Level Trough 16.6H 07/04/20 11:41: POC Whole Blood Glucose 263H Height (Feet): 5 Height (Inches): 7.00 Weight (Pounds): 155 Objective Current Medications Medications (Trade) Dose Ordered Sig/Sunshine Route PRN Reason Start Time Stop Time Status Last Admin Dose Admin Acetaminophen (Tylenol) 650 mg Q6H PRN ORAL Pain 0-4/10 or Temp >100.4 F 06/29/20 04:15 07/29/20 04:14 Albuterol/ Ipratropium (Combivent Respimat) 1 puff Q6H PRN INH coughing/SOB 06/29/20 07:00 07/29/20 06:59 Cefepime HCl 2 gm/ Dextrose 55 ml @ 110 mls/hr EVERY 12 HOURS IVPB 07/03/20 13:00 07/10/20 12:59 07/04/20 21:00 Dexamethasone Sodium Phosphate (Decadron 4mg/ml vial) 6 mg DAILY IVP 07/04/20 09:00 07/09/20 09:01 07/04/20 08:21 Dextrose (Dextrose 50%) 25 ml Q30M PRN IV Hypoglycemia 06/29/20 18:30 09/27/20 18:29 Dextrose (Dextrose 50%) 50 ml Q30M PRN IV Hypoglycemia 06/29/20 18:30 09/27/20 18:29 Guaifenesin/ Dextromethorphan (Robitussin DM Syrup) 10 ml Q4H PRN ORAL For Cough 06/29/20 04:15 09/27/20 04:14 07/04/20 08:38 Heparin Sodium (Porcine) (Heparin 5000 units/ml) 5,000 units EVERY 12 HOURS SUBQ 06/29/20 09:00 08/13/20 08:59 07/04/20 21:00 Insulin Aspart (NovoLOG) BEFORE MEALS AND HS SUBQ 06/29/20 06:30 09/27/20 06:29 07/04/20 21:00 Insulin Aspart (NovoLOG) 4 units NOVOTIAC SUBQ 07/03/20 11:50 09/27/20 18:29 07/04/20 16:42 Insulin Detemir (Levemir) 12 units DAILY SUBQ 07/03/20 09:00 09/27/20 20:59 07/04/20 08:23 Morphine Sulfate (Morphine Sulfate) 2 mg Q4H PRN IVP For Pain Scale 5-10 06/29/20 04:15 07/06/20 04:14 Ondansetron HCl (Zofran) 4 mg Q6H PRN IVP Nausea & Vomiting 06/29/20 04:15 07/29/20 04:14 Remdesivir 100 mg/ Sodium Chloride 250 ml @ 250 mls/hr Q24H IV 07/04/20 18:00 07/07/20 18:59 07/04/20 18:33 Sodium Chloride 1,000 ml @ 60 mls/hr [id number] IV 06/29/20 05:30 07/29/20 05:29 07/04/20 18:50 Assessment/Plan Problem List: (1) Diabetes mellitus out of control ICD Codes: E11.65 - Type 2 diabetes mellitus with hyperglycemia SNOMED: 74308571, 092042923 (2) Pneumonia due to COVID-19 virus ICD Codes: U07.1 - COVID-19; J12.89 - Other viral pneumonia SNOMED: 968542297872788112 Status: stable, progressing Assessment/Plan: continue Levemir 12 units qam continue Novolog 4 units ac tid continue Novolog sliding scale ac hs Nazemi,Lucio MD Jul 05, 2020 06:34
[2020-07-05 08:00] VITALS: BP 117/81
--- NOTE | 2020-07-05 08:00 | NUR ---
NURSE HAND-OFF REPORT: Important Events on Shift:[] Patient Status: [STABLE] Diet: [LOW SODIUM CCHO MEDIUM] Pending Orders: [] Pending Results/Labs:[] Pending MD notification:[] Latest Vital Signs: Temperature 98.0 , Pulse 68 , B/P 135 /77 , Respiratory Rate 20 , O2 SAT 96 , Non-Rebreather, O2 Flow Rate 15.0 . Vital Sign Comment: [] EKG Rhythm: Sinus Rhythm Rhythm change?: N MD Notified?: - MD Response: Latest Stafford Fall Score: 20 Fall Risk: Low Risk Safety Measures: Call light Within Reach, Bed Alarm Zone 2, Side Rails Side Rails x2, Bed position Low and Locked. Fall Precautions: Yellow Socks Yellow Gown Patient Fall Education Report given to [FENG VARGAS].
--- NOTE | 2020-07-05 08:12 | NUR ---
NURSE NOTES: pt awake and about to have breakfast. Pt on health and safety representative no signs of cardiac or respiratory distress. Bed in lowest position. Call light within in reach. Will continue to monitor pt.
[2020-07-05 08:57] LABS: HEMATOCRIT 43.6 % (42.0-52.0); MEAN CORPUSCULAR VOLUME 92 FL (80-99); PLATELET COUNT 260 K/UL (150-450); RED BLOOD COUNT 4.76 M/UL (4.70-6.10); RED CELL DISTRIBUTION WIDTH 11.9 % (11.6-14.8); WHITE BLOOD COUNT 13.4 K/UL (4.8-10.8)
[2020-07-05 09:27] LABS: ALANINE AMINOTRANSFERASE 126 U/L (12-78); ALBUMIN 2.4 G/DL (3.4-5.0); ALBUMIN/GLOBULIN RATIO 0.5 (1.0-2.7); ALKALINE PHOSPHATASE 92 U/L (46-116); ANION GAP 9 mmol/L (5-15); ASPARTATE AMINO TRANSFERASE 42 U/L (15-37); BILIRUBIN,DIRECT 0.2 MG/DL (0.0-0.3); BLOOD UREA NITROGEN 13 mg/dL (7-18); CALCIUM 8.1 MG/DL (8.5-10.1); CARBON DIOXIDE 24 MMOL/L (21-32); CHLORIDE 101 MMOL/L (98-107); CREATININE 0.6 MG/DL (0.55-1.30); POTASSIUM 3.9 MMOL/L (3.5-5.1); SODIUM 134 MMOL/L (136-145)
--- NOTE | 2020-07-05 09:41 | NUR ---
CASE MANAGEMENT:REVIEW 07/05/20 SI: LUIS A COVID PNA. BACTEREMIA 97.5 69 20 130/75 97% ON 15L NRB WBC+13.3 IS: IV REMDESIVIR Q24 IV DECADRON QD IV CEFEPIME Q12 IVF@60/HR : TELEMETRY DCP FROM HOME
[2020-07-05] MEDS: Cefepime HCl 2 GM in D5W 55 ML IVPB SCH (10:40)
[2020-07-05] MEDS: Heparin 5000 units/ml inj SUBQ SCH ×2 (10:47→21:26)
[2020-07-05] MEDS: Levemir Flexpen SUBQ SCH (10:49)
--- NOTE | 2020-07-05 10:52 | Infectious Diseases Prog Note ---
Assessment/Plan Assessment/Plan antibiotics : cefepime remdesivir A 1. COVID 19 pneumonia on 15 liters O2, saturation 97 percent 2. coag neg staph likely contaminated in blood 3. diabetes mellitus 4. hypertension P 1. continue remdesivir day 3 2. continue decadron day 7 3. d/c cefepime 4. will follow up cultures Subjective Constitutional: Denies: fever, chills Respiratory: Reports: shortness of breath - decreased, dry cough - mild Gastrointestinal/Abdominal: Denies: nausea, vomiting, diarrhea Musculoskeletal: Denies: pain Allergies: Coded Allergies: No Known Allergies (Unverified , 07/11/18) Objective Last 24 Hour Vital Signs Date Time Temp Pulse Resp B/P (MAP) Pulse Ox O2 Delivery O2 Flow Rate FiO2 07/05/20 09:50 97 Non-Rebreather 15.0 100 07/05/20 08:00 80 07/05/20 04:00 97.5 65 20 130/75 (93) 97 07/05/20 04:00 69 07/05/20 00:00 65 07/05/20 00:00 97.0 63 20 128/77 (94) 96 07/04/20 21:00 Non-Rebreather 15.0 07/04/20 20:00 97.9 70 20 138/74 (95) 96 07/04/20 20:00 69 07/04/20 16:00 97.5 78 20 119/78 (92) 99 07/04/20 16:00 71 07/04/20 12:00 85 07/04/20 11:48 97.3 87 18 127/75 (92) 95 Height (Feet): 5 Height (Inches): 7.00 Weight (Pounds): 155 Laboratory Tests Test 07/04/20 11:41 07/05/20 08:15 POC Whole Blood Glucose 263 MG/DL (74-106) H White Blood Count 13.4 K/UL (4.8-10.8) H Red Blood Count 4.76 M/UL (4.70-6.10) Hemoglobin 16.0 G/DL (14.2-18.0) Hematocrit 43.6 % (42.0-52.0) Mean Corpuscular Volume 92 FL (80-99) Mean Corpuscular Hemoglobin 33.6 PG (27.0-31.0) H Mean Corpuscular Hemoglobin Concent 36.6 G/DL (32.0-36.0) H Red Cell Distribution Width 11.9 % (11.6-14.8) Platelet Count 260 K/UL (150-450) Mean Platelet Volume 7.9 FL (6.5-10.1) Neutrophils (%) (Auto) % (45.0-75.0) Lymphocytes (%) (Auto) % (20.0-45.0) Monocytes (%) (Auto) % (1.0-10.0) Eosinophils (%) (Auto) % (0.0-3.0) Basophils (%) (Auto) % (0.0-2.0) Differential Total Cells Counted 100 Neutrophils % (Manual) 89 % (45-75) H Lymphocytes % (Manual) 10 % (20-45) L Monocytes % (Manual) 1 % (1-10) Eosinophils % (Manual) 0 % (0-3) Basophils % (Manual) 0 % (0-2) Band Neutrophils 0 % (0-8) Platelet Estimate Adequate Platelet Morphology Normal Red Blood Cell Morphology Normal Sodium Level 134 MMOL/L (136-145) L Potassium Level 3.9 MMOL/L (3.5-5.1) Chloride Level 101 MMOL/L (98-107) Carbon Dioxide Level 24 MMOL/L (21-32) Anion Gap 9 mmol/L (5-15) Blood Urea Nitrogen 13 mg/dL (7-18) Creatinine 0.6 MG/DL (0.55-1.30) Estimat Glomerular Filtration Rate > 60 mL/min (>60) Glucose Level 139 MG/DL (74-106) H Calcium Level 8.1 MG/DL (8.5-10.1) L Total Bilirubin 1.0 MG/DL (0.2-1.0) Direct Bilirubin 0.2 MG/DL (0.0-0.3) Aspartate Amino Transf (AST/SGOT) 42 U/L (15-37) H Alanine Aminotransferase (ALT/SGPT) 126 U/L (12-78) H Alkaline Phosphatase 92 U/L (46-116) Total Protein 6.9 G/DL (6.4-8.2) Albumin 2.4 G/DL (3.4-5.0) L Globulin 4.5 g/dL Albumin/Globulin Ratio 0.5 (1.0-2.7) L Current Medications Medications (Trade) Dose Ordered Sig/Sunshine Route PRN Reason Start Time Stop Time Status Last Admin Dose Admin Acetaminophen (Tylenol) 650 mg Q6H PRN ORAL Pain 0-4/10 or Temp >100.4 F 06/29/20 04:15 07/29/20 04:14 Albuterol/ Ipratropium (Combivent Respimat) 1 puff Q6H PRN INH coughing/SOB 06/29/20 07:00 07/29/20 06:59 Cefepime HCl 2 gm/ Dextrose 55 ml @ 110 mls/hr EVERY 12 HOURS IVPB 07/03/20 13:00 07/10/20 12:59 07/04/20 21:00 Dexamethasone Sodium Phosphate (Decadron 4mg/ml vial) 6 mg DAILY IVP 07/04/20 09:00 07/09/20 09:01 07/04/20 08:21 Dextrose (Dextrose 50%) 25 ml Q30M PRN IV Hypoglycemia 06/29/20 18:30 09/27/20 18:29 Dextrose (Dextrose 50%) 50 ml Q30M PRN IV Hypoglycemia 06/29/20 18:30 09/27/20 18:29 Guaifenesin/ Dextromethorphan (Robitussin DM Syrup) 10 ml Q4H PRN ORAL For Cough 06/29/20 04:15 09/27/20 04:14 07/04/20 08:38 Heparin Sodium (Porcine) (Heparin 5000 units/ml) 5,000 units EVERY 12 HOURS SUBQ 06/29/20 09:00 08/13/20 08:59 07/04/20 21:00 Insulin Aspart (NovoLOG) BEFORE MEALS AND HS SUBQ 06/29/20 06:30 09/27/20 06:29 07/04/20 21:00 Insulin Aspart (NovoLOG) 4 units NOVOTIAC SUBQ 07/03/20 11:50 09/27/20 18:29 07/04/20 16:42 Insulin Detemir (Levemir) 12 units DAILY SUBQ 07/03/20 09:00 09/27/20 20:59 07/04/20 08:23 Morphine Sulfate (Morphine Sulfate) 2 mg Q4H PRN IVP For Pain Scale 5-10 06/29/20 04:15 07/06/20 04:14 Ondansetron HCl (Zofran) 4 mg Q6H PRN IVP Nausea & Vomiting 06/29/20 04:15 07/29/20 04:14 Remdesivir 100 mg/ Sodium Chloride 250 ml @ 250 mls/hr Q24H IV 07/04/20 18:00 07/07/20 18:59 07/04/20 18:33 Sodium Chloride 1,000 ml @ 60 mls/hr [id number] IV 06/29/20 05:30 07/29/20 05:29 07/04/20 18:50 Navarro Zuñiga MD Jul 05, 2020 10:52
[2020-07-05] MEDS: guaiFENesin /DM 10ml syrup ORAL PRN (10:54)
[2020-07-05 12:00] VITALS: BP 125/78
--- NOTE | 2020-07-05 14:05 | Pulmonology Progress Note ---
Subjective ROS Limited/Unobtainable: Yes Interval Events: none major Constitutional: Denies: fever, chills HEENT: Repors: no symptoms Respiratory: Reports: dry cough Cardiovascular: Reports: no symptoms Gastrointestinal/Abdominal: Denies: nausea, vomiting, diarrhea Musculoskeletal: Denies: pain Allergies: Coded Allergies: No Known Allergies (Unverified , 07/11/18) All Systems: reviewed and negative except above Objective Last 24 Hour Vital Signs Date Time Temp Pulse Resp B/P (MAP) Pulse Ox O2 Delivery O2 Flow Rate FiO2 07/05/20 12:00 93 07/05/20 09:50 97 Non-Rebreather 15.0 100 07/05/20 08:00 80 07/05/20 04:00 97.5 65 20 130/75 (93) 97 07/05/20 04:00 69 07/05/20 00:00 65 07/05/20 00:00 97.0 63 20 128/77 (94) 96 07/04/20 21:00 Non-Rebreather 15.0 07/04/20 20:00 97.9 70 20 138/74 (95) 96 07/04/20 20:00 69 07/04/20 16:00 97.5 78 20 119/78 (92) 99 07/04/20 16:00 71 Intake and Output 07/04/20 07/05/20 19:00 07:00 Intake Total 900 ml Output Total 1800 ml 1300 ml Balance -900 ml -1300 ml Intake Oral 900 ml Output Urine Total 1800 ml 1300 ml # Bowel Movements 1 1 Objective 07/05/2020 on NRB 15L saturating well; on RA his saturation drops to mid 80s, per RN 07/04/2020 on NRB 15 L; saturating well 07/03/2020 now on NRB 15 L, pt reports he's breathing fine; due for dialysis today 07/02/2020 now at 10 L simple face mask saturating >92% 07/01/2020 per RN pt saturating at low 90s with 6 lpm oxygen simple face mask 06/30/2020 saturating 96% on 6 lpm simple face mask; pt subjectively feels better 06/29/2020 pt in bed; saturating 97% on 6 lpm simple face mask General Appearance: WD/WN, no acute distress HEENT: normocephalic Respiratory: chest wall non-tender, lungs clear, normal breath sounds Cardiovascular: normal rate, no gallop/murmur, tachycardia Laboratory Tests 07/05/20 08:15: White Blood Count 13.4H, Red Blood Count 4.76, Hemoglobin 16.0, Hematocrit 43.6, Mean Corpuscular Volume 92, Mean Corpuscular Hemoglobin 33.6H, Mean Corpuscular Hemoglobin Concent 36.6H, Red Cell Distribution Width 11.9, Platelet Count 260, Mean Platelet Volume 7.9, Neutrophils (%) (Auto) , Lymphocytes (%) (Auto) , Monocytes (%) (Auto) , Eosinophils (%) (Auto) , Basophils (%) (Auto) , Differential Total Cells Counted 100, Neutrophils % (Manual) 89H, Lymphocytes % (Manual) 10L, Monocytes % (Manual) 1, Eosinophils % (Manual) 0, Basophils % (Manual) 0, Band Neutrophils 0, Platelet Estimate Adequate, Platelet Morphology Normal, Red Blood Cell Morphology Normal, Sodium Level 134L, Potassium Level 3.9, Chloride Level 101, Carbon Dioxide Level 24, Anion Gap 9, Blood Urea Nitrogen 13, Creatinine 0.6, Estimat Glomerular Filtration Rate > 60, Glucose Level 139H, Calcium Level 8.1L, Total Bilirubin 1.0, Direct Bilirubin 0.2, As partate Amino Transf (AST/SGOT) 42H, Alanine Aminotransferase (ALT/SGPT) 126H, Alkaline Phosphatase 92, Total Protein 6.9, Albumin 2.4L, Globulin 4.5, Albumin/Globulin Ratio 0.5L Current Medications Medications (Trade) Dose Ordered Sig/Sunshine Route PRN Reason Start Time Stop Time Status Last Admin Dose Admin Acetaminophen (Tylenol) 650 mg Q6H PRN ORAL Pain 0-4/10 or Temp >100.4 F 06/29/20 04:15 07/29/20 04:14 Albuterol/ Ipratropium (Combivent Respimat) 1 puff Q6H PRN INH coughing/SOB 06/29/20 07:00 07/29/20 06:59 Dexamethasone Sodium Phosphate (Decadron 4mg/ml vial) 6 mg DAILY IVP 07/04/20 09:00 07/09/20 09:01 07/05/20 10:40 Dextrose (Dextrose 50%) 25 ml Q30M PRN IV Hypoglycemia 06/29/20 18:30 09/27/20 18:29 Dextrose (Dextrose 50%) 50 ml Q30M PRN IV Hypoglycemia 06/29/20 18:30 09/27/20 18:29 Guaifenesin/ Dextromethorphan (Robitussin DM Syrup) 10 ml Q4H PRN ORAL For Cough 06/29/20 04:15 09/27/20 04:14 07/05/20 10:54 Heparin Sodium (Porcine) (Heparin 5000 units/ml) 5,000 units EVERY 12 HOURS SUBQ 06/29/20 09:00 08/13/20 08:59 07/05/20 10:47 Insulin Aspart (NovoLOG) BEFORE MEALS AND HS SUBQ 06/29/20 06:30 09/27/20 06:29 07/05/20 12:26 Insulin Aspart (NovoLOG) 4 units NOVOTIAC SUBQ 07/03/20 11:50 09/27/20 18:29 07/05/20 12:27 Insulin Detemir (Levemir) 12 units DAILY SUBQ 07/03/20 09:00 09/27/20 20:59 07/05/20 10:49 Morphine Sulfate (Morphine Sulfate) 2 mg Q4H PRN IVP For Pain Scale 5-10 06/29/20 04:15 07/06/20 04:14 Ondansetron HCl (Zofran) 4 mg Q6H PRN IVP Nausea & Vomiting 06/29/20 04:15 07/29/20 04:14 Remdesivir 100 mg/ Sodium Chloride 250 ml @ 250 mls/hr Q24H IV 07/04/20 18:00 07/07/20 18:59 07/04/20 18:33 Sodium Chloride 1,000 ml @ 60 mls/hr [id number] IV 06/29/20 05:30 07/29/20 05:29 07/04/20 18:50 Assessment/Plan Assessment/Plan Assessment/Plan 1. Bilateral pulmonary infiltrates, high suspicion for COVID-19 pneumonia. Now confirmed - on dexamethasone; now also on Remdesivir - s/p empiric Abx - currently on 15 L NRB saturating well; s/p failed attempt on 6-10L oxygen via simple face mask due to desaturation down to 80s. - 06/28/2020 COVID-19 test neg; pcr test positive - cont supplemental oxygen 2. Elevated inflammatory markers. 3. Negative initial rapid gene testing for COVID-19. PCR however positive 4. Hx of hypertension. 5. DM - on glucose-lowering agents 6. Fever. - resolved 7. Bacteremia - on Abx per ID We will follow carefully. The care for this patient was discussed with my supervising physician Time spent for this case was approximately 31 minutesThe patient was seen and examined at bedside and all new and available data was reviewed in the patients chart. I agree with the above findings, impression, and plan. (Patient was seen earlier today. Signature timestamp does not reflect patient encounter time) Zhen Austin MD Jul 05, 2020 14:05 Eloy Garg MD Jul 05, 2020 17:29
[2020-07-05 16:00] VITALS: BP 131/79
[2020-07-05] MEDS: Maintenance Dose:Remdesivir 100mg/NS 230ml x 4 Doses IV SCH ×2 (18:20)
--- NOTE | 2020-07-05 19:21 | NUR ---
NURSE HAND-OFF REPORT: Important Events on Shift:[]notified CINTIA Lebron about pt wBC trending up Patient Status: []full code Diet: []low sodium diet Pending Orders: [] Pending Results/Labs:[] Pending MD notification:[] Latest Vital Signs: Temperature 97.9 , Pulse 77 , B/P 131 /79 , Respiratory Rate 20 , O2 SAT 97 , Non-Rebreather, O2 Flow Rate 15.0 . Vital Sign Comment: [] EKG Rhythm: Sinus Rhythm Rhythm change?: N MD Notified?: - MD Response: Latest Stafford Fall Score: 20 Fall Risk: Low Risk Safety Measures: Call light Within Reach, Bed Alarm Zone 2, Side Rails Side Rails x2, Bed position Low and Locked. Fall Precautions: y Yellow Socks y Yellow Gown y Patient Fall Education y Report given to []Hussein Roca/ALICIA
[2020-07-05 20:00] VITALS: BP 125/78
--- NOTE | 2020-07-05 21:12 | General Progress Note ---
Subjective ROS Limited/Unobtainable: Yes Allergies: Coded Allergies: No Known Allergies (Unverified , 07/11/18) Objective Last 24 Hour Vital Signs Date Time Temp Pulse Resp B/P (MAP) Pulse Ox O2 Delivery O2 Flow Rate FiO2 07/05/20 19:36 96 Non-Rebreather 15.0 100 07/05/20 16:00 97.9 79 20 131/79 (96) 97 07/05/20 16:00 77 07/05/20 12:00 98.9 75 20 125/78 (94) 96 07/05/20 12:00 93 07/05/20 09:50 97 Non-Rebreather 15.0 100 07/05/20 09:00 Non-Rebreather 15.0 07/05/20 08:00 80 07/05/20 08:00 97.7 83 22 117/81 (93) 97 07/05/20 04:00 97.5 65 20 130/75 (93) 97 07/05/20 04:00 69 07/05/20 00:00 65 07/05/20 00:00 97.0 63 20 128/77 (94) 96 Intake and Output 07/04/20 07/05/20 19:00 07:00 Intake Total 900 ml Output Total 1800 ml 1300 ml Balance -900 ml -1300 ml Intake Oral 900 ml Output Urine Total 1800 ml 1300 ml # Bowel Movements 1 1 Laboratory Tests 07/05/20 08:15: White Blood Count 13.4H, Red Blood Count 4.76, Hemoglobin 16.0, Hematocrit 43.6, Mean Corpuscular Volume 92, Mean Corpuscular Hemoglobin 33.6H, Mean Corpuscular Hemoglobin Concent 36.6H, Red Cell Distribution Width 11.9, Platelet Count 260, Mean Platelet Volume 7.9, Neutrophils (%) (Auto) , Lymphocytes (%) (Auto) , Monocytes (%) (Auto) , Eosinophils (%) (Auto) , Basophils (%) (Auto) , Differential Total Cells Counted 100, Neutrophils % (Manual) 89H, Lymphocytes % (Manual) 10L, Monocytes % (Manual) 1, Eosinophils % (Manual) 0, Basophils % (Manual) 0, Band Neutrophils 0, Platelet Estimate Adequate, Platelet Morphology Normal, Red Blood Cell Morphology Normal, Sodium Level 134L, Potassium Level 3.9, Chloride Level 101, Carbon Dioxide Level 24, Anion Gap 9, Blood Urea Nitrogen 13, Creatinine 0.6, Estimat Glomerular Filtration Rate > 60, Glucose Level 139H, Calcium Level 8.1L, Total Bilirubin 1.0, Direct Bilirubin 0.2, Aspartate Amino Transf (AST/SGOT) 42H, Alanine Aminotransferase (ALT/SGPT) 126H, Alkaline Phosphatase 92, Total Protein 6.9, Albumin 2.4L, Globulin 4.5, Albumin/Globulin Ratio 0.5L 07/05/20 18:27: POC Whole Blood Glucose [Pending] Height (Feet): 5 Height (Inches): 7.00 Weight (Pounds): 155 Assessment/Plan Problem List: (1) Diabetes mellitus out of control ICD Codes: E11.65 - Type 2 diabetes mellitus with hyperglycemia SNOMED: 00870087, 721691730 (2) Pneumonia due to COVID-19 virus ICD Codes: U07.1 - COVID-19; J12.89 - Other viral pneumonia SNOMED: 039328321029919235 (3) Diabetes ICD Codes: E11.9 - Type 2 diabetes mellitus without complications SNOMED: 49235098 (4) Malnutrition ICD Codes: E46 - Unspecified protein-calorie malnutrition SNOMED: 08934477 (5) Hypoxia ICD Codes: R09.02 - Hypoxemia; J12.89 - Other viral pneumonia SNOMED: 822558168 (6) UTI (urinary tract infection) ICD Codes: N39.0 - Urinary tract infection, site not specified SNOMED: 58403716 (7) Pneumonia ICD Codes: J18.9 - Pneumonia, unspecified organism SNOMED: 254719563 (8) HTN (hypertension) ICD Codes: I10 - Essential (primary) hypertension SNOMED: 26897899 Status: stable, progressing Assessment/Plan: resp insuff covid + dm elevated sugar is improving no fever no wheezing uti hypoxia improved htn reviewed chart and labs Tory Schaffer MD Jul 05, 2020 21:12
[2020-07-06] VITALS: BP 135/77
[2020-07-06 04:00] VITALS: BP 130/77
[2020-07-06] MEDS: NovoLOG Insulin Flexpen SUBQ SCH ×7 (06:03→20:51)
--- NOTE | 2020-07-06 06:24 | Hematology/Onc Progress Note ---
Assessment/Plan Assessment/Plan Assessment and recs # Leukocytosis due to Bilateral pulmonary infiltrates, high suspicion for COVID- 19 pneumonia. --> on dexamethasone --> s/p empiric Abx cefepime --> currently on 10 lpm NC saturating well; --> wbc 12-->13 # Elevated ddimer with covid19 pna --> did receive abx since admission --> oxygen supplementation as per before --> pulm re-eval --> venous duplex legs as needed, but hold off, stable for dc # Hypoxia --> 10l Fm, adjust as needed v nonrebreather # Type 2 diabetes # Hypertension # Bacteremia --> per id, on Abx # Dvt ppx heparin sq Appreciate consultation and heydi RN Subjective HEENT: Denies: no symptoms, eye pain, blurred vision, tearing, double vision, ear pain, ear discharge, nose pain, nose congestion, throat pain, throat swelling, mouth pain, mouth swelling, other Cardiovascular: Denies: no symptoms, chest pain, edema, irregular heart rate, lightheadedness, palpitations, syncope, other Respiratory: Denies: no symptoms, cough, shortness of breath, SOB with excertion, SOB at rest, sputum, wheezing, other Gastrointestinal/Abdominal: Denies: no symptoms, abdomen distended, abdominal pain, black stools, tarry stools, blood in stool, constipated, diarrhea, difficulty swallowing, nausea, poor appetite, poor fluid intake, rectal bleeding, vomiting, other Genitourinary: Denies: no symptoms, burning, discharge, frequency, flank pain, hematuria, incontinence, pain, urgency, other Neurologic/Psychiatric: Denies: no symptoms, anxiety, depressed, emotional problems, headache, numbness, paresthesia, pre-existing deficit, seizure, tingling, tremors, weakness, other Endocrine: Denies: no symptoms, excessive sweating, flushing, intolerance to cold, intolerance to heat, increased hunger, increased thirst, increased urine, unexplained weight gain, unexplained weight loss, other Hematologic/Lymphatic: Denies: no symptoms, anemia, easy bleeding, easy bruising, adenopathy, other Allergies: Coded Allergies: No Known Allergies (Unverified , 07/11/18) Subjective 07/04 nonrebreather, meds noted, no bleeding, cbc pending 07/05 labs noted, no bleeding, nrm, no night sweats, dw rn 07/06 cbc is pending, labs reviewed, no night sweats, meds noted Objective Objective Current Medications Medications (Trade) Dose Ordered Sig/Sunshine Route PRN Reason Start Time Stop Time Status Last Admin Dose Admin Acetaminophen (Tylenol) 650 mg Q6H PRN ORAL Pain 0-4/10 or Temp >100.4 F 06/29/20 04:15 07/29/20 04:14 Albuterol/ Ipratropium (Combivent Respimat) 1 puff Q6H PRN INH coughing/SOB 06/29/20 07:00 07/29/20 06:59 Dexamethasone Sodium Phosphate (Decadron 4mg/ml vial) 6 mg DAILY IVP 07/04/20 09:00 07/09/20 09:01 07/05/20 10:40 Dextrose (Dextrose 50%) 25 ml Q30M PRN IV Hypoglycemia 06/29/20 18:30 09/27/20 18:29 Dextrose (Dextrose 50%) 50 ml Q30M PRN IV Hypoglycemia 06/29/20 18:30 09/27/20 18:29 Guaifenesin/ Dextromethorphan (Robitussin DM Syrup) 10 ml Q4H PRN ORAL For Cough 06/29/20 04:15 09/27/20 04:14 07/05/20 10:54 Heparin Sodium (Porcine) (Heparin 5000 units/ml) 5,000 units EVERY 12 HOURS SUBQ 06/29/20 09:00 08/13/20 08:59 07/05/20 21:26 Insulin Aspart (NovoLOG) BEFORE MEALS AND HS SUBQ 06/29/20 06:30 09/27/20 06:29 07/05/20 21:27 Insulin Aspart (NovoLOG) 4 units NOVOTIAC SUBQ 07/03/20 11:50 09/27/20 18:29 07/05/20 16:50 Insulin Detemir (Levemir) 12 units DAILY SUBQ 07/03/20 09:00 09/27/20 20:59 07/05/20 10:49 Ondansetron HCl (Zofran) 4 mg Q6H PRN IVP Nausea & Vomiting 06/29/20 04:15 07/29/20 04:14 Remdesivir 100 mg/ Sodium Chloride 250 ml @ 250 mls/hr Q24H IV 07/04/20 18:00 07/07/20 18:59 07/05/20 18:20 Sodium Chloride 1,000 ml @ 60 mls/hr [id number] IV 06/29/20 05:30 07/29/20 05:29 07/06/20 04:10 Last 24 Hour Vital Signs Date Time Temp Pulse Resp B/P (MAP) Pulse Ox O2 Delivery O2 Flow Rate FiO2 07/06/20 04:00 77 07/06/20 04:00 97.8 77 20 130/77 (94) 97 07/06/20 00:00 68 07/06/20 00:00 98.0 75 20 135/77 (96) 96 07/05/20 21:00 Non-Rebreather 15.0 07/05/20 20:00 97.7 70 20 125/78 (94) 98 07/05/20 20:00 79 07/05/20 19:36 96 Non-Rebreather 15.0 100 07/05/20 16:00 97.9 79 20 131/79 (96) 97 07/05/20 16:00 77 07/05/20 12:00 98.9 75 20 125/78 (94) 96 07/05/20 12:00 93 07/05/20 09:50 97 Non-Rebreather 15.0 100 07/05/20 09:00 Non-Rebreather 15.0 07/05/20 08:00 80 07/05/20 08:00 97.7 83 22 117/81 (93) 97 07/05/20 04:00 97.5 65 20 130/75 (93) 97 07/05/20 04:00 69 07/05/20 00:00 65 07/05/20 00:00 97.0 63 20 128/77 (94) 96 07/04/20 21:00 Non-Rebreather 15.0 07/04/20 20:00 97.9 70 20 138/74 (95) 96 07/04/20 20:00 69 07/04/20 16:00 97.5 78 20 119/78 (92) 99 07/04/20 16:00 71 07/04/20 12:00 85 07/04/20 11:48 97.3 87 18 127/75 (92) 95 07/04/20 09:00 Non-Rebreather 15.0 07/04/20 08:10 97 Non-Rebreather 15.0 100 07/04/20 08:00 86 07/04/20 08:00 96.8 96 20 117/73 (88) 95 Intake and Output 07/05/20 07/06/20 19:00 07:00 Intake Total 750 ml Output Total 1300 ml 1500 ml Balance -550 ml -1500 ml Intake Oral 750 ml Output Urine Total 1300 ml 1500 ml # Bowel Movements 1 1 Labs Test 07/03/20 11:25 07/03/20 20:51 07/04/20 05:20 07/04/20 06:50 POC Whole Blood Glucose 227 MG/DL (74-106) 187 MG/DL (74-106) White Blood Count 10.3 K/UL (4.8-10.8) Red Blood Count 4.52 M/UL (4.70-6.10) Hemoglobin 15.4 G/DL (14.2-18.0) Hematocrit 42.3 % (42.0-52.0) Mean Corpuscular Volume 94 FL (80-99) Mean Corpuscular Hemoglobin 34.1 PG (27.0-31.0) Mean Corpuscular Hemoglobin Concent 36.5 G/DL (32.0-36.0) Red Cell Distribution Width 11.5 % (11.6-14.8) Platelet Count 226 K/UL (150-450) Mean Platelet Volume 6.9 FL (6.5-10.1) Neutrophils (%) (Auto) % (45.0-75.0) Lymphocytes (%) (Auto) % (20.0-45.0) Monocytes (%) (Auto) % (1.0-10.0) Eosinophils (%) (Auto) % (0.0-3.0) Basophils (%) (Auto) % (0.0-2.0) Differential Total Cells Counted 100 Neutrophils % (Manual) 90 % (45-75) Lymphocytes % (Manual) 5 % (20-45) Monocytes % (Manual) 5 % (1-10) Eosinophils % (Manual) 0 % (0-3) Basophils % (Manual) 0 % (0-2) Band Neutrophils 0 % (0-8) Platelet Estimate Adequate Platelet Morphology Normal Red Blood Cell Morphology Normal Sodium Level 133 MMOL/L (136-145) Potassium Level 4.8 MMOL/L (3.5-5.1) Chloride Level 101 MMOL/L (98-107) Carbon Dioxide Level 25 MMOL/L (21-32) Anion Gap 7 mmol/L (5-15) Blood Urea Nitrogen 10 mg/dL (7-18) Creatinine 0.5 MG/DL (0.55-1.30) Estimat Glomerular Filtration Rate > 60 mL/min (>60) Glucose Level 197 MG/DL (74-106) Calcium Level 7.9 MG/DL (8.5-10.1) Total Bilirubin 0.7 MG/DL (0.2-1.0) Direct Bilirubin 0.3 MG/DL (0.0-0.3) Aspartate Amino Transf (AST/SGOT) 57 U/L (15-37) Alanine Aminotransferase (ALT/SGPT) 179 U/L (12-78) Alkaline Phosphatase 95 U/L (46-116) Total Protein 6.2 G/DL (6.4-8.2) Albumin 2.4 G/DL (3.4-5.0) Vancomycin Level Trough 16.6 ug/mL (5.0-12.0) Test 07/04/20 11:41 07/05/20 08:15 07/05/20 18:27 07/05/20 21:14 POC Whole Blood Glucose 263 MG/DL (74-106) 312 MG/DL (74-106) White Blood Count 13.4 K/UL (4.8-10.8) Red Blood Count 4.76 M/UL (4.70-6.10) Hemoglobin 16.0 G/DL (14.2-18.0) Hematocrit 43.6 % (42.0-52.0) Mean Corpuscular Volume 92 FL (80-99) Mean Corpuscular Hemoglobin 33.6 PG (27.0-31.0) Mean Corpuscular Hemoglobin Concent 36.6 G/DL (32.0-36.0) Red Cell Distribution Width 11.9 % (11.6-14.8) Platelet Count 260 K/UL (150-450) Mean Platelet Volume 7.9 FL (6.5-10.1) Neutrophils (%) (Auto) % (45.0-75.0) Lymphocytes (%) (Auto) % (20.0-45.0) Monocytes (%) (Auto) % (1.0-10.0) Eosinophils (%) (Auto) % (0.0-3.0) Basophils (%) (Auto) % (0.0-2.0) Differential Total Cells Counted 100 Neutrophils % (Manual) 89 % (45-75) Lymphocytes % (Manual) 10 % (20-45) Monocytes % (Manual) 1 % (1-10) Eosinophils % (Manual) 0 % (0-3) Basophils % (Manual) 0 % (0-2) Band Neutrophils 0 % (0-8) Platelet Estimate Adequate Platelet Morphology Normal Red Blood Cell Morphology Normal Sodium Level 134 MMOL/L (136-145) Potassium Level 3.9 MMOL/L (3.5-5.1) Chloride Level 101 MMOL/L (98-107) Carbon Dioxide Level 24 MMOL/L (21-32) Anion Gap 9 mmol/L (5-15) Blood Urea Nitrogen 13 mg/dL (7-18) Creatinine 0.6 MG/DL (0.55-1.30) Estimat Glomerular Filtration Rate > 60 mL/min (>60) Glucose Level 139 MG/DL (74-106) Calcium Level 8.1 MG/DL (8.5-10.1) Total Bilirubin 1.0 MG/DL (0.2-1.0) Direct Bilirubin 0.2 MG/DL (0.0-0.3) Aspartate Amino Transf (AST/SGOT) 42 U/L (15-37) Alanine Aminotransferase (ALT/SGPT) 126 U/L (12-78) Alkaline Phosphatase 92 U/L (46-116) Total Protein 6.9 G/DL (6.4-8.2) Albumin 2.4 G/DL (3.4-5.0) Globulin 4.5 g/dL Albumin/Globulin Ratio 0.5 (1.0-2.7) Height (Feet): 5 Height (Inches): 7.00 Weight (Pounds): 155 Objective General: moderate distress Heent: normocephalic, atraumatic Neck: supple Resp: no respiratory distress, no retraction, ++ nonrebreather Cardiovascular: tachycardia Gastrointestinal: non tender, soft Genitourinary: no CVA tenderness Musculoskeletal: back normal, no calf tenderness Neurologic: alert, motor strength/tone normal, oriented x3, sensory intact Skin: no rash Lymphatic: no adenopathy Ever Mcadams MD Jul 06, 2020 06:24
--- NOTE | 2020-07-06 06:32 | General Progress Note ---
Subjective ROS Limited/Unobtainable: Yes Allergies: Coded Allergies: No Known Allergies (Unverified , 07/11/18) Subjective events noted interval notes reviewed mealtime glucose is elevated Item Value Date Time Bedside Blood Glucose 90 mg/dl 07/06/20 06 Bedside Blood Glucose 312 mg/dl H 07/05/207 Bedside Blood Glucose 332 mg/dl H 07/05/20 1828 Bedside Blood Glucose 217 mg/dl H 07/05/20 1227 Bedside Blood Glucose 104 mg/dl 07/05/20 1049 Objective Last 24 Hour Vital Signs Date Time Temp Pulse Resp B/P (MAP) Pulse Ox O2 Delivery O2 Flow Rate FiO2 07/06/20 04:00 77 07/06/20 04:00 97.8 77 20 130/77 (94) 97 07/06/20 00:00 68 07/06/20 00:00 98.0 75 20 135/77 (96) 96 07/05/20 21:00 Non-Rebreather 15.0 07/05/20 20:00 97.7 70 20 125/78 (94) 98 07/05/20 20:00 79 07/05/20 19:36 96 Non-Rebreather 15.0 100 07/05/20 16:00 97.9 79 20 131/79 (96) 97 07/05/20 16:00 77 07/05/20 12:00 98.9 75 20 125/78 (94) 96 07/05/20 12:00 93 07/05/20 09:50 97 Non-Rebreather 15.0 100 07/05/20 09:00 Non-Rebreather 15.0 07/05/20 08:00 80 07/05/20 08:00 97.7 83 22 117/81 (93) 97 Intake and Output 07/05/20 07/06/20 19:00 07:00 Intake Total 750 ml Output Total 1300 ml 1500 ml Balance -550 ml -1500 ml Intake Oral 750 ml Output Urine Total 1300 ml 1500 ml # Bowel Movements 1 1 Laboratory Tests 07/05/20 08:15: White Blood Count 13.4H, Red Blood Count 4.76, Hemoglobin 16.0, Hematocrit 43.6, Mean Corpuscular Volume 92, Mean Corpuscular Hemoglobin 33.6H, Mean Corpuscular Hemoglobin Concent 36.6H, Red Cell Distribution Width 11.9, Platelet Count 260, Mean Platelet Volume 7.9, Neutrophils (%) (Auto) , Lymphocytes (%) (Auto) , Monocytes (%) (Auto) , Eosinophils (%) (Auto) , Basophils (%) (Auto) , Differential Total Cells Counted 100, Neutrophils % (Manual) 89H, Lymphocytes % (Manual) 10L, Monocytes % (Manual) 1, Eosinophils % (Manual) 0, Basophils % (Manual) 0, Band Neutrophils 0, Platelet Estimate Adequate, Platelet Morphology Normal, Red Blood Cell Morphology Normal, Sodium Level 134L, Potassium Level 3.9, Chloride Level 101, Carbon Dioxide Level 24, Anion Gap 9, Blood Urea Nitrogen 13, Creatinine 0.6, Estimat Glomerular Filtration Rate > 60, Glucose Level 139H, Calcium Level 8.1L, Total Bilirubin 1.0, Direct Bilirubin 0.2, Aspartate Amino Transf (AST/SGOT) 42H, Alanine Aminotransferase (ALT/SGPT) 126H, Alkaline Phosphatase 92, Total Protein 6.9, Albumin 2.4L, Globulin 4.5, A lbumin/Globulin Ratio 0.5L 07/05/20 18:27: POC Whole Blood Glucose [Pending] 07/05/20 21:14: POC Whole Blood Glucose 312H Height (Feet): 5 Height (Inches): 7.00 Weight (Pounds): 155 Objective Current Medications Medications (Trade) Dose Ordered Sig/Sunshine Route PRN Reason Start Time Stop Time Status Last Admin Dose Admin Acetaminophen (Tylenol) 650 mg Q6H PRN ORAL Pain 0-4/10 or Temp >100.4 F 06/29/20 04:15 07/29/20 04:14 Albuterol/ Ipratropium (Combivent Respimat) 1 puff Q6H PRN INH coughing/SOB 06/29/20 07:00 07/29/20 06:59 Cefepime HCl 2 gm/ Dextrose 55 ml @ 110 mls/hr EVERY 12 HOURS IVPB 07/03/20 13:00 07/10/20 12:59 07/04/20 21:00 Dexamethasone Sodium Phosphate (Decadron 4mg/ml vial) 6 mg DAILY IVP 07/04/20 09:00 07/09/20 09:01 07/04/20 08:21 Dextrose (Dextrose 50%) 25 ml Q30M PRN IV Hypoglycemia 06/29/20 18:30 09/27/20 18:29 Dextrose (Dextrose 50%) 50 ml Q30M PRN IV Hypoglycemia 06/29/20 18:30 09/27/20 18:29 Guaifenesin/ Dextromethorphan (Robitussin DM Syrup) 10 ml Q4H PRN ORAL For Cough 06/29/20 04:15 09/27/20 04:14 07/04/20 08:38 Heparin Sodium (Porcine) (Heparin 5000 units/ml) 5,000 units EVERY 12 HOURS SUBQ 06/29/20 09:00 08/13/20 08:59 07/04/20 21:00 Insulin Aspart (NovoLOG) BEFORE MEALS AND HS SUBQ 06/29/20 06:30 09/27/20 06:29 07/04/20 21:00 Insulin Aspart (NovoLOG) 4 units NOVOTIAC SUBQ 07/03/20 11:50 09/27/20 18:29 07/04/20 16:42 Insulin Detemir (Levemir) 12 units DAILY SUBQ 07/03/20 09:00 09/27/20 20:59 07/04/20 08:23 Morphine Sulfate (Morphine Sulfate) 2 mg Q4H PRN IVP For Pain Scale 5-10 06/29/20 04:15 07/06/20 04:14 Ondansetron HCl (Zofran) 4 mg Q6H PRN IVP Nausea & Vomiting 06/29/20 04:15 07/29/20 04:14 Remdesivir 100 mg/ Sodium Chloride 250 ml @ 250 mls/hr Q24H IV 07/04/20 18:00 07/07/20 18:59 07/04/20 18:33 Sodium Chloride 1,000 ml @ 60 mls/hr [id number] IV 06/29/20 05:30 07/29/20 05:29 07/04/20 18:50 Assessment/Plan Problem List: (1) Diabetes mellitus out of control ICD Codes: E11.65 - Type 2 diabetes mellitus with hyperglycemia SNOMED: 12828125, [id number] (2) Pneumonia due to COVID-19 virus ICD Codes: U07.1 - COVID-19; J12.89 - Other viral pneumonia SNOMED: 835427456756270142 Status: stable, progressing Assessment/Plan: continue Levemir 12 units qam increase Novolog 4 to 6 units ac tid continue Novolog sliding scale ac hs Lucio Portillo MD Jul 06, 2020 06:32
--- NOTE | 2020-07-06 07:15 | NUR ---
NURSE HAND-OFF REPORT: Important Events on Shift:[] Patient Status: [STABLE] Diet: [LOW NA CCHO MED] Pending Orders: [] Pending Results/Labs:[] Pending MD notification:[] Latest Vital Signs: Temperature 97.8 , Pulse 77 , B/P 130 /77 , Respiratory Rate 20 , O2 SAT 97 , Non-Rebreather, O2 Flow Rate 15.0 . Vital Sign Comment: [] EKG Rhythm: Sinus Rhythm Rhythm change?: N MD Notified?: - MD Response: Latest Stafford Fall Score: 20 Fall Risk: Low Risk Safety Measures: Call light Within Reach, Bed Alarm Zone 2, Side Rails Side Rails x2, Bed position Low and Locked. Fall Precautions: Yellow Socks Yellow Gown Patient Fall Education Report given to [FENG VARGAS].
[2020-07-06 08:00] VITALS: BP 121/78
--- NOTE | 2020-07-06 08:00 | NUR ---
NURSE NOTES: pt awake and about to have breakfast. pt has no complains of pain Pt on patient access director no signs of cardiac or respiratory distress. Bed in lowest position. Call light within in reach. Will continue to monitor pt.
--- NOTE | 2020-07-06 08:05 | NUR ---
CASE MANAGEMENT:REVIEW 07/06/20 SI: LUIS A COVID PNA. BACTEREMIA 97.8 77 20 130/757 97% ON 15L NRB LABS PENDING IS: IV REMDESIVIR Q24(/) IV DECADRON QD IV CEFEPIME Q12 IVF@60/HR : TELEMETRY DCP FROM HOME
[2020-07-06 08:31] LABS: HEMATOCRIT 42.3 % (42.0-52.0); HEMOGLOBIN 15.7 G/DL (14.2-18.0); MEAN CORPUSCULAR VOLUME 91 FL (80-99); PLATELET COUNT 225 K/UL (150-450); RED BLOOD COUNT 4.66 M/UL (4.70-6.10); RED CELL DISTRIBUTION WIDTH 12.3 % (11.6-14.8); WHITE BLOOD COUNT 13.3 K/UL (4.8-10.8)
[2020-07-06 08:37] LABS: NEUTROPHILS % (AUTO) 88.9 % (45.0-75.0)
[2020-07-06 08:38] LABS: BASOPHILS % (AUTO) 0.5 % (0.0-2.0); LYMPHOCYTES % (AUTO) 6.8 % (20.0-45.0); MONOCYTES % (AUTO) 2.7 % (1.0-10.0)
[2020-07-06 08:44] LABS: ALANINE AMINOTRANSFERASE 102 U/L (12-78); ALBUMIN 2.3 G/DL (3.4-5.0); ALBUMIN/GLOBULIN RATIO 0.5 (1.0-2.7); ALKALINE PHOSPHATASE 102 U/L (46-116); ANION GAP 10 mmol/L (5-15); ASPARTATE AMINO TRANSFERASE 36 U/L (15-37); BILIRUBIN,DIRECT 0.3 MG/DL (0.0-0.3); BILIRUBIN,TOTAL 0.9 MG/DL (0.2-1.0); BLOOD UREA NITROGEN 13 mg/dL (7-18); CALCIUM 8.3 MG/DL (8.5-10.1); CARBON DIOXIDE 24 MMOL/L (21-32); CHLORIDE 102 MMOL/L (98-107); CREATININE 0.6 MG/DL (0.55-1.30); SODIUM 136 MMOL/L (136-145)
--- NOTE | 2020-07-06 09:01 | Infectious Diseases Prog Note ---
Assessment/Plan Assessment/Plan A 1. pneumonia with COVID19 2. coag neg staph likely contaminated 3. Diabetes mellitus 4. Hypertension 5. Hypoxemia P 1. Continue Decadron & Remdisivir 2. will follow up cultures Subjective ROS Limited/Unobtainable: Yes Constitutional: Denies: fever Respiratory: Reports: shortness of breath Allergies: Coded Allergies: No Known Allergies (Unverified , 07/11/18) Objective Last 24 Hour Vital Signs Date Time Temp Pulse Resp B/P (MAP) Pulse Ox O2 Delivery O2 Flow Rate FiO2 07/06/20 04:00 77 07/06/20 04:00 97.8 77 20 130/77 (94) 97 07/06/20 00:00 68 07/06/20 00:00 98.0 75 20 135/77 (96) 96 07/05/20 21:00 Non-Rebreather 15.0 07/05/20 20:00 97.7 70 20 125/78 (94) 98 07/05/20 20:00 79 07/05/20 19:36 96 Non-Rebreather 15.0 100 07/05/20 16:00 97.9 79 20 131/79 (96) 97 07/05/20 16:00 77 07/05/20 12:00 98.9 75 20 125/78 (94) 96 07/05/20 12:00 93 07/05/20 09:50 97 Non-Rebreather 15.0 100 07/05/20 09:00 Non-Rebreather 15.0 Height (Feet): 5 Height (Inches): 7.00 Weight (Pounds): 155 HEENT: mucous membranes moist Respiratory/Chest: other - oxygen by rebrething mask Cardiovascular: normal rate Abdomen: soft, non tender Extremities: no edema Neurologic/Psychiatric: alert, responsive Laboratory Tests Test 07/05/20 18:27 07/05/20 21:14 07/06/20 06:10 POC Whole Blood Glucose Pending 312 MG/DL (74-106) H White Blood Count 13.3 K/UL (4.8-10.8) H Red Blood Count 4.66 M/UL (4.70-6.10) L Hemoglobin 15.7 G/DL (14.2-18.0) Hematocrit 42.3 % (42.0-52.0) Mean Corpuscular Volume 91 FL (80-99) Mean Corpuscular Hemoglobin 33.7 PG (27.0-31.0) H Mean Corpuscular Hemoglobin Concent 37.1 G/DL (32.0-36.0) H Red Cell Distribution Width 12.3 % (11.6-14.8) Platelet Count 225 K/UL (150-450) Mean Platelet Volume 7.7 FL (6.5-10.1) Neutrophils (%) (Auto) 88.9 % (45.0-75.0) H Lymphocytes (%) (Auto) 6.8 % (20.0-45.0) L Monocytes (%) (Auto) 2.7 % (1.0-10.0) Eosinophils (%) (Auto) 1.0 % (0.0-3.0) Basophils (%) (Auto) 0.5 % (0.0-2.0) Sodium Level Pending Potassium Level Pending Chloride Level Pending Carbon Dioxide Level Pending Blood Urea Nitrogen Pending Creatinine Pending Estimat Glomerular Filtration Rate Pending Glucose Level Pending Calcium Level Pending Total Bilirubin Pending Direct Bilirubin Pending Aspartate Amino Transf (AST/SGOT) Pending Alanine Aminotransferase (ALT/SGPT) Pending Alkaline Phosphatase Pending Total Protein Pending Albumin Pending Globulin Pending Current Medications Medications (Trade) Dose Ordered Sig/Sunshine Route PRN Reason Start Time Stop Time Status Last Admin Dose Admin Acetaminophen (Tylenol) 650 mg Q6H PRN ORAL Pain 0-4/10 or Temp >100.4 F 06/29/20 04:15 07/29/20 04:14 Albuterol/ Ipratropium (Combivent Respimat) 1 puff Q6H PRN INH coughing/SOB 06/29/20 07:00 07/29/20 06:59 Dexamethasone Sodium Phosphate (Decadron 4mg/ml vial) 6 mg DAILY IVP 07/04/20 09:00 07/09/20 09:01 07/05/20 10:40 Dextrose (Dextrose 50%) 25 ml Q30M PRN IV Hypoglycemia 06/29/20 18:30 09/27/20 18:29 Dextrose (Dextrose 50%) 50 ml Q30M PRN IV Hypoglycemia 06/29/20 18:30 09/27/20 18:29 Guaifenesin/ Dextromethorphan (Robitussin DM Syrup) 10 ml Q4H PRN ORAL For Cough 06/29/20 04:15 09/27/20 04:14 07/05/20 10:54 Heparin Sodium (Porcine) (Heparin 5000 units/ml) 5,000 units EVERY 12 HOURS SUBQ 06/29/20 09:00 08/13/20 08:59 07/05/20 21:26 Insulin Aspart (NovoLOG) BEFORE MEALS AND HS SUBQ 06/29/20 06:30 09/27/20 06:29 07/05/20 21:27 Insulin Aspart (NovoLOG) 6 units NOVOTIAC SUBQ 07/06/20 11:50 09/27/20 18:29 Insulin Detemir (Levemir) 12 units DAILY SUBQ 07/03/20 09:00 09/27/20 20:59 07/05/20 10:49 Ondansetron HCl (Zofran) 4 mg Q6H PRN IVP Nausea & Vomiting 06/29/20 04:15 07/29/20 04:14 Remdesivir 100 mg/ Sodium Chloride 250 ml @ 250 mls/hr Q24H IV 07/04/20 18:00 07/07/20 18:59 07/05/20 18:20 Sodium Chloride 1,000 ml @ 60 mls/hr [id number] IV 06/29/20 05:30 07/29/20 05:29 07/06/20 04:10 Luther Moise MD Jul 06, 2020 09:01
[2020-07-06] MEDS: Heparin 5000 units/ml inj SUBQ SCH ×2 (10:21→20:56)
[2020-07-06] MEDS: Levemir Flexpen SUBQ SCH (10:23)
[2020-07-06 12:00] VITALS: BP 126/72
[2020-07-06 16:00] VITALS: BP 136/77
--- NOTE | 2020-07-06 16:03 | Pulmonology Progress Note ---
Subjective ROS Limited/Unobtainable: Yes Interval Events: none major Constitutional: Denies: fever HEENT: Repors: no symptoms Respiratory: Reports: dry cough Cardiovascular: Reports: no symptoms Gastrointestinal/Abdominal: Denies: nausea, vomiting, diarrhea Musculoskeletal: Denies: pain Allergies: Coded Allergies: No Known Allergies (Unverified , 07/11/18) All Systems: reviewed and negative except above Objective Last 24 Hour Vital Signs Date Time Temp Pulse Resp B/P (MAP) Pulse Ox O2 Delivery O2 Flow Rate FiO2 07/06/20 12:00 97.5 106 24 126/72 (90) 94 07/06/20 09:00 Non-Rebreather 15.0 07/06/20 08:00 97.8 90 24 121/78 (92) 97 07/06/20 04:00 77 07/06/20 04:00 97.8 77 20 130/77 (94) 97 07/06/20 00:00 68 07/06/20 00:00 98.0 75 20 135/77 (96) 96 07/05/20 21:00 Non-Rebreather 15.0 07/05/20 20:00 97.7 70 20 125/78 (94) 98 07/05/20 20:00 79 07/05/20 19:36 96 Non-Rebreather 15.0 100 Intake and Output 07/05/20 07/06/20 19:00 07:00 Intake Total 750 ml Output Total 1300 ml 1500 ml Balance -550 ml -1500 ml Intake Oral 750 ml Output Urine Total 1300 ml 1500 ml # Bowel Movements 1 1 Objective 07/06/2020 on NRB 15L saturating well 07/05/2020 on NRB 15L saturating well; on RA his saturation drops to mid 80s, per RN 07/04/2020 on NRB 15 L; saturating well 07/03/2020 now on NRB 15 L, pt reports he's breathing fine; due for dialysis today 07/02/2020 now at 10 L simple face mask saturating >92% 07/01/2020 per RN pt saturating at low 90s with 6 lpm oxygen simple face mask 06/30/2020 saturating 96% on 6 lpm simple face mask; pt subjectively feels better 06/29/2020 pt in bed; saturating 97% on 6 lpm simple face mask General Appearance: WD/WN, no acute distress HEENT: normocephalic Respiratory: chest wall non-tender, lungs clear, normal breath sounds Cardiovascular: normal rate, no gallop/murmur, tachycardia Laboratory Tests 07/05/20 18:27: POC Whole Blood Glucose [Pending] 07/05/20 21:14: POC Whole Blood Glucose 312H 07/06/20 06:10: White Blood Count 13.3H, Red Blood Count 4.66L, Hemoglobin 15.7, Hematocrit 42.3, Mean Corpuscular Volume 91, Mean Corpuscular Hemoglobin 33.7H, Mean Corpuscular Hemoglobin Concent 37.1H, Red Cell Distribution Width 12.3, Platelet Count 225, Mean Platelet Volume 7.7, Neutrophils (%) (Auto) 88.9H, Lymphocytes (%) (Auto) 6.8L, Monocytes (%) (Auto) 2.7, Eosinophils (%) (Auto) 1.0, Basophils (%) (Auto) 0.5, Sodium Level 136, Potassium Level 4.0, Chloride Level 102, Carbon Dioxide Level 24, Anion Gap 10, Blood Urea Nitrogen 13, Creatinine 0.6, Estimat Glomerular Filtration Rate > 60, Glucose Level 71L, Calcium Level 8.3L, Total Bilirubin 0.9, Direct Bilirubin 0.3, Aspartate Amino Transf (AST/SGOT) 36, Alanine Aminotransferase (ALT/SGPT) 102H, Alkaline Phosphatase 102, Total Protein 6.6, Albumin 2.3L, Globulin 4.3, Albumin/Globulin Ratio 0.5L 07/06/20 10:19: POC Whole Blood Glucose [Pending] 07/06/20 12:16: POC Whole Blood Glucose 191H Current Medications Medications (Trade) Dose Ordered Sig/Sunshine Route PRN Reason Start Time Stop Time Status Last Admin Dose Admin Acetaminophen (Tylenol) 650 mg Q6H PRN ORAL Pain 0-4/10 or Temp >100.4 F 06/29/20 04:15 07/29/20 04:14 Albuterol/ Ipratropium (Combivent Respimat) 1 puff Q6H PRN INH coughing/SOB 06/29/20 07:00 07/29/20 06:59 Dexamethasone Sodium Phosphate (Decadron 4mg/ml vial) 6 mg DAILY IVP 07/04/20 09:00 07/09/20 09:01 07/06/20 10:15 Dextrose (Dextrose 50%) 25 ml Q30M PRN IV Hypoglycemia 06/29/20 18:30 09/27/20 18:29 Dextrose (Dextrose 50%) 50 ml Q30M PRN IV Hypoglycemia 06/29/20 18:30 09/27/20 18:29 Guaifenesin/ Dextromethorphan (Robitussin DM Syrup) 10 ml Q4H PRN ORAL For Cough 06/29/20 04:15 09/27/20 04:14 07/05/20 10:54 Heparin Sodium (Porcine) (Heparin 5000 units/ml) 5,000 units EVERY 12 HOURS SUBQ 06/29/20 09:00 08/13/20 08:59 07/06/20 10:21 Insulin Aspart (NovoLOG) BEFORE MEALS AND HS SUBQ 06/29/20 06:30 09/27/20 06:29 07/06/20 15:28 Insulin Aspart (NovoLOG) 6 units NOVOTIAC SUBQ 07/06/20 11:50 09/27/20 18:29 07/06/20 15:29 Insulin Detemir (Levemir) 12 units DAILY SUBQ 07/03/20 09:00 09/27/20 20:59 07/06/20 10:23 Ondansetron HCl (Zofran) 4 mg Q6H PRN IVP Nausea & Vomiting 06/29/20 04:15 07/29/20 04:14 Remdesivir 100 mg/ Sodium Chloride 250 ml @ 250 mls/hr Q24H IV 07/04/20 18:00 07/07/20 18:59 07/05/20 18:20 Sodium Chloride 1,000 ml @ 60 mls/hr [id number] IV 06/29/20 05:30 07/29/20 05:29 07/06/20 04:10 Assessment/Plan Assessment/Plan Assessment/Plan Assessment/Plan 1. Bilateral pulmonary infiltrates, high suspicion for COVID-19 pneumonia. Now confirmed - on dexamethasone; now also on Remdesivir - s/p empiric Abx - currently on 15 L NRB saturating well; s/p failed attempt on 6-10L oxygen via simple face mask due to desaturation down to 80s. - 06/28/2020 COVID-19 test neg; pcr test positive - cont supplemental oxygen 2. Elevated inflammatory markers. 3. Negative initial rapid gene testing for COVID-19. PCR however positive 4. Hx of hypertension. 5. DM - on glucose-lowering agents 6. Fever. - resolved 7. Bacteremia - on Abx per ID We will follow carefully. Added codiene syrup for cough The care for this patient was discussed with my supervising physician Time spent for this case was approximately 31 minutes The patient was seen and examined at bedside and all new and available data was reviewed in the patients chart. I agree with the above findings, impression, a nd plan. (Patient was seen earlier today. Signature timestamp does not reflect patient encounter time) Zhen Austin MD Jul 06, 2020 16:03 Eloy Garg MD Jul 06, 2020 17:18
[2020-07-06] MEDS: Maintenance Dose:Remdesivir 100mg/NS 230ml x 4 Doses IV SCH ×2 (18:16)
--- NOTE | 2020-07-06 19:44 | NUR ---
NURSE NOTES: Patient received from Rox VARGAS. Patient in stable condition. Alert and oriented x4. Able to make needs known. Saturating well @ 98% with nonrebreather 15L of oxygen. IV site patent and intact on Right AC 20G and Right FA 22G running 1/2NS @60mls/hr. Bed in lowest position and locked. Call light and bedside table within reach. Side rails up. Will continue plan of care.
--- NOTE | 2020-07-06 19:50 | NUR ---
NURSE HAND-OFF REPORT: Important Events on Shift:[]pt has only complains of a dry cough, requested stronger medication from CINTIA Lebron Patient Status: []full code Diet: []low Na CCHO med Pending Orders: [] Pending Results/Labs:[] Pending MD notification:[] Latest Vital Signs: Temperature 98.0 , Pulse 85 , B/P 136 /77 , Respiratory Rate 24 , O2 SAT 98 , Non-Rebreather, O2 Flow Rate 15.0 . Vital Sign Comment: [] EKG Rhythm: Sinus Rhythm Rhythm change?: N MD Notified?: - MD Response: Latest Stafford Fall Score: 20 Fall Risk: Low Risk Safety Measures: Call light Within Reach, Bed Alarm Zone 2, Side Rails Side Rails x2, Bed position Low and Locked. Fall Precautions: Y Yellow Socks y Yellow Gown y Patient Fall Education Report given to []. Zion/ALICIA
[2020-07-06 20:00] VITALS: BP 118/82
--- NOTE | 2020-07-06 20:50 | General Progress Note ---
Subjective ROS Limited/Unobtainable: Yes Allergies: Coded Allergies: No Known Allergies (Unverified , 07/11/18) Objective Last 24 Hour Vital Signs Date Time Temp Pulse Resp B/P (MAP) Pulse Ox O2 Delivery O2 Flow Rate FiO2 07/06/20 20:08 95 Non-Rebreather 15.0 100 07/06/20 16:00 98.0 85 24 136/77 (96) 98 07/06/20 16:00 86 07/06/20 12:00 85 07/06/20 12:00 97.5 106 24 126/72 (90) 94 07/06/20 09:00 Non-Rebreather 15.0 07/06/20 08:00 97.8 90 24 121/78 (92) 97 07/06/20 08:00 77 07/06/20 04:00 77 07/06/20 04:00 97.8 77 20 130/77 (94) 97 07/06/20 00:00 68 07/06/20 00:00 98.0 75 20 135/77 (96) 96 07/05/20 21:00 Non-Rebreather 15.0 Intake and Output 07/05/20 07/06/20 19:00 07:00 Intake Total 750 ml Output Total 1300 ml 1500 ml Balance -550 ml -1500 ml Intake Oral 750 ml Output Urine Total 1300 ml 1500 ml # Bowel Movements 1 1 Laboratory Tests 07/05/20 21:14: POC Whole Blood Glucose 312H 07/06/20 06:10: White Blood Count 13.3H, Red Blood Count 4.66L, Hemoglobin 15.7, Hematocrit 42.3, Mean Corpuscular Volume 91, Mean Corpuscular Hemoglobin 33.7H, Mean Corpuscular Hemoglobin Concent 37.1H, Red Cell Distribution Width 12.3, Platelet Count 225, Mean Platelet Volume 7.7, Neutrophils (%) (Auto) 88.9H, Lymphocytes (%) (Auto) 6.8L, Monocytes (%) (Auto) 2.7, Eosinophils (%) (Auto) 1.0, Basophils (%) (Auto) 0.5, Sodium Level 136, Potassium Level 4.0, Chloride Level 102, Carbon Dioxide Level 24, Anion Gap 10, Blood Urea Nitrogen 13, Creatinine 0.6, Estimat Glomerular Filtration Rate > 60, Glucose Level 71L, Calcium Level 8.3L, Total Bilirubin 0.9, Direct Bilirubin 0.3, Aspartate Amino Transf (AST/SGOT) 36, Alanine Aminotransferase (ALT/SGPT) 102H, Alkaline Phosphatase 102, Total Protein 6.6, Albumin 2.3L, Globulin 4.3, Albumin/Globulin Ratio 0.5L 07/06/20 10:19: POC Whole Blood Glucose [Pending] 07/06/20 12:16: POC Whole Blood Glucose 191H Height (Feet): 5 Height (Inches): 7.00 Weight (Pounds): 155 Assessment/Plan Problem List: (1) Diabetes mellitus out of control ICD Codes: E11.65 - Type 2 diabetes mellitus with hyperglycemia SNOMED: 81200867, 282978158 (2) Pneumonia due to COVID-19 virus ICD Codes: U07.1 - COVID-19; J12.89 - Other viral pneumonia SNOMED: 710410929316690042 (3) Diabetes ICD Codes: E11.9 - Type 2 diabetes mellitus without complications SNOMED: 77128067 (4) Malnutrition ICD Codes: E46 - Unspecified protein-calorie malnutrition SNOMED: 73310943 (5) Hypoxia ICD Codes: R09.02 - Hypoxemia; J12.89 - Other viral pneumonia SNOMED: 452435960 (6) UTI (urinary tract infection) ICD Codes: N39.0 - Urinary tract infection, site not specified SNOMED: 46308298 (7) Pneumonia ICD Codes: J18.9 - Pneumonia, unspecified organism SNOMED: 988159009 (8) HTN (hypertension) ICD Codes: I10 - Essential (primary) hypertension SNOMED: 89114688 Status: stable, progressing Assessment/Plan: resp insuff covid + dm uti improving viatls stable prn supportive rx Tory Schaffer MD Jul 06, 2020 20:50
[2020-07-07] VITALS: BP 124/74
[2020-07-07] MEDS: guaiFENesin w/Codeine 5ml Liq ud ORAL PRN ×2 (02:25→08:13)
[2020-07-07 04:00] VITALS: BP 127/79
[2020-07-07] MEDS: NovoLOG Insulin Flexpen SUBQ SCH ×7 (05:57→20:13)
--- NOTE | 2020-07-07 06:30 | General Progress Note ---
Subjective ROS Limited/Unobtainable: Yes Allergies: Coded Allergies: No Known Allergies (Unverified , 07/11/18) Subjective events noted interval notes reviewed mealtime glucose improved Item Value Date Time Bedside Blood Glucose 130 mg/dl H 07/07/20 0558 Bedside Blood Glucose 226 mg/dl H 07/06/20 2100 Bedside Blood Glucose 255 mg/dl H 07/06/20 1818 Bedside Blood Glucose 139 mg/dl H 07/06/20 1130 Bedside Blood Glucose 152 mg/dl H 07/06/20 1023 Bedside Blood Glucose 90 mg/dl 07/06/20 0605 Objective Last 24 Hour Vital Signs Date Time Temp Pulse Resp B/P (MAP) Pulse Ox O2 Delivery O2 Flow Rate FiO2 07/07/20 00:00 98.2 83 22 124/74 (91) 99 07/07/20 00:00 68 07/06/20 21:00 Non-Rebreather 15.0 07/06/20 20:08 95 Non-Rebreather 15.0 100 07/06/20 20:00 98.1 76 19 118/82 (94) 100 07/06/20 20:00 67 07/06/20 16:00 98.0 85 24 136/77 (96) 98 07/06/20 16:00 86 07/06/20 12:00 85 07/06/20 12:00 97.5 106 24 126/72 (90) 94 07/06/20 09:00 Non-Rebreather 15.0 07/06/20 08:00 97.8 90 24 121/78 (92) 97 07/06/20 08:00 77 Intake and Output 07/06/20 07/07/20 19:00 07:00 Intake Total 975 ml Output Total 1400 ml Balance -425 ml Intake Oral 975 ml Output Urine Total 1400 ml # Bowel Movements 1 Laboratory Tests 07/06/20 10:19: POC Whole Blood Glucose [Pending] 07/06/20 12:16: POC Whole Blood Glucose 191H 07/07/20 05:49: POC Whole Blood Glucose 130H Height (Feet): 5 Height (Inches): 7.00 Weight (Pounds): 155 Objective Current Medications Medications (Trade) Dose Ordered Sig/Sunshine Route PRN Reason Start Time Stop Time Status Last Admin Dose Admin Acetaminophen (Tylenol) 650 mg Q6H PRN ORAL Pain 0-4/10 or Temp >100.4 F 06/29/20 04:15 07/29/20 04:14 Albuterol/ Ipratropium (Combivent Respimat) 1 puff Q6H PRN INH coughing/SOB 06/29/20 07:00 07/29/20 06:59 Dexamethasone Sodium Phosphate (Decadron 4mg/ml vial) 6 mg DAILY IVP 07/04/20 09:00 07/09/20 09:01 07/06/20 10:15 Dextrose (Dextrose 50%) 25 ml Q30M PRN IV Hypoglycemia 06/29/20 18:30 09/27/20 18:29 Dextrose (Dextrose 50%) 50 ml Q30M PRN IV Hypoglycemia 06/29/20 18:30 09/27/20 18:29 Guaifenesin/ Codeine Phosphate (Robitussin with codeine) 5 ml Q6H PRN ORAL For Cough 07/06/20 16:15 08/05/20 16:14 07/07/20 02:25 Heparin Sodium (Porcine) (Heparin 5000 units/ml) 5,000 units EVERY 12 HOURS SUBQ 06/29/20 09:00 08/13/20 08:59 07/06/20 20:56 Insulin Aspart (NovoLOG) BEFORE MEALS AND HS SUBQ 06/29/20 06:30 09/27/20 06:29 07/06/20 20:51 Insulin Aspart (NovoLOG) 6 units NOVOTIAC SUBQ 07/06/20 11:50 09/27/20 18:29 07/07/20 05:58 Insulin Detemir (Levemir) 12 units DAILY SUBQ 07/03/20 09:00 09/27/20 20:59 07/06/20 10:23 Ondansetron HCl (Zofran) 4 mg Q6H PRN IVP Nausea & Vomiting 06/29/20 04:15 07/29/20 04:14 Remdesivir 100 mg/ Sodium Chloride 250 ml @ 250 mls/hr Q24H IV 07/04/20 18:00 07/07/20 18:59 07/06/20 18:16 Sodium Chloride 1,000 ml @ 60 mls/hr [id number] IV 06/29/20 05:30 07/29/20 05:29 12/17/20 20:51 Assessment/Plan Problem List: (1) Diabetes mellitus out of control ICD Codes: E11.65 - Type 2 diabetes mellitus with hyperglycemia SNOMED: 36217324, 509634702 (2) Pneumonia due to COVID-19 virus ICD Codes: U07.1 - COVID-19; J12.89 - Other viral pneumonia SNOMED: 129501726379291219 Status: stable, progressing Assessment/Plan: add Metformin 500 mg tid continue Levemir 12 units qam continue Novolog 6 units ac tid continue Novolog sliding scale ac hs Lucio Portillo MD Jul 07, 2020 06:30
[2020-07-07 07:21] LABS: ALANINE AMINOTRANSFERASE 99 U/L (12-78); ALBUMIN 2.3 G/DL (3.4-5.0); ALBUMIN/GLOBULIN RATIO 0.5 (1.0-2.7); ALKALINE PHOSPHATASE 107 U/L (46-116); ANION GAP 7 mmol/L (5-15); ASPARTATE AMINO TRANSFERASE 39 U/L (15-37); BILIRUBIN,DIRECT 0.3 MG/DL (0.0-0.3); BILIRUBIN,TOTAL 0.8 MG/DL (0.2-1.0); BLOOD UREA NITROGEN 13 mg/dL (7-18); CARBON DIOXIDE 26 MMOL/L (21-32); CHLORIDE 101 MMOL/L (98-107); CREATININE 0.6 MG/DL (0.55-1.30); POTASSIUM 4.7 MMOL/L (3.5-5.1); SODIUM 134 MMOL/L (136-145)
[2020-07-07 07:25] LABS: CALCIUM 7.9 MG/DL (8.5-10.1)
--- NOTE | 2020-07-07 07:35 | NUR ---
CASE MANAGEMENT:REVIEW 07/07/20 SI: LUIS A COVID PNA. BACTEREMIA 98.2 83 22 124/74 95% ON 15L NRB WBC+13.3 IS: IV REMDESIVIR Q24(11/22) IV DECADRON QD IVF@60/HR HEPARIN SQ Q12 : TELEMETRY DCP FROM HOME
--- NOTE | 2020-07-07 07:37 | Hematology/Onc Progress Note ---
Assessment/Plan Assessment/Plan Assessment and recs # Leukocytosis due to Bilateral pulmonary infiltrates, high suspicion for COVID- 19 pneumonia. --> on dexamethasone --> s/p empiric Abx cefepime --> currently on 10 lpm NC saturating well; --> wbc 12-->13 # Elevated ddimer with covid19 pna --> did receive abx since admission --> oxygen supplementation as per before --> pulm re-eval --> venous duplex legs as needed, but hold off, stable for dc # Hypoxia --> 10l Fm, adjust as needed v nonrebreather # Type 2 diabetes # Hypertension # Bacteremia --> per id, on Abx # Dvt ppx heparin sq Appreciate consultation and heydi RN Subjective Constitutional: Denies: no symptoms, chills, fever, malaise, weakness, other HEENT: Denies: no symptoms, eye pain, blurred vision, tearing, double vision, ear pain, ear discharge, nose pain, nose congestion, throat pain, throat swelling, mouth pain, mouth swelling, other Cardiovascular: Denies: no symptoms, chest pain, edema, irregular heart rate, lightheadedness, palpitations, syncope, other Respiratory: Denies: no symptoms, cough, shortness of breath, SOB with excertion, SOB at rest, sputum, wheezing, other Genitourinary: Denies: no symptoms, burning, discharge, frequency, flank pain, hematuria, incontinence, pain, urgency, other Neurologic/Psychiatric: Denies: no symptoms, anxiety, depressed, emotional problems, headache, numbness, paresthesia, pre-existing deficit, seizure, tingling, tremors, weakness, other Allergies: Coded Allergies: No Known Allergies (Unverified , 07/11/18) Subjective 07/04 nonrebreather, meds noted, no bleeding, cbc pending 07/05 labs noted, no bleeding, nrm, no night sweats, heydi rn 07/06 cbc is pending, labs reviewed, no night sweats, meds noted 07/07 on levemir and novolog, no bleeding, on 15l nrm Objective Objective Current Medications Medications (Trade) Dose Ordered Sig/Sunshine Route PRN Reason Start Time Stop Time Status Last Admin Dose Admin Acetaminophen (Tylenol) 650 mg Q6H PRN ORAL Pain 0-4/10 or Temp >100.4 F 06/29/20 04:15 07/29/20 04:14 Albuterol/ Ipratropium (Combivent Respimat) 1 puff Q6H PRN INH coughing/SOB 06/29/20 07:00 07/29/20 06:59 Dexamethasone Sodium Phosphate (Decadron 4mg/ml vial) 6 mg DAILY IVP 07/04/20 09:00 07/09/20 09:01 07/06/20 10:15 Dextrose (Dextrose 50%) 25 ml Q30M PRN IV Hypoglycemia 06/29/20 18:30 09/27/20 18:29 Dextrose (Dextrose 50%) 50 ml Q30M PRN IV Hypoglycemia 06/29/20 18:30 09/27/20 18:29 Guaifenesin/ Codeine Phosphate (Robitussin with codeine) 5 ml Q6H PRN ORAL For Cough 07/06/20 16:15 08/05/20 16:14 07/07/20 02:25 Heparin Sodium (Porcine) (Heparin 5000 units/ml) 5,000 units EVERY 12 HOURS SUBQ 06/29/20 09:00 08/13/20 08:59 07/06/20 20:56 Insulin Aspart (NovoLOG) BEFORE MEALS AND HS SUBQ 06/29/20 06:30 09/27/20 06:29 07/06/20 20:51 Insulin Aspart (NovoLOG) 6 units NOVOTIAC SUBQ 07/06/20 11:50 09/27/20 18:29 07/07/20 05:58 Insulin Detemir (Levemir) 12 units DAILY SUBQ 07/03/20 09:00 09/27/20 20:59 07/06/20 10:23 Metformin HCl (Glucophage) 500 mg TIWM ORAL 07/07/20 07:00 08/06/20 06:59 Ondansetron HCl (Zofran) 4 mg Q6H PRN IVP Nausea & Vomiting 06/29/20 04:15 07/29/20 04:14 Remdesivir 100 mg/ Sodium Chloride 250 ml @ 250 mls/hr Q24H IV 07/04/20 18:00 07/07/20 18:59 07/06/20 18:16 Sodium Chloride 1,000 ml @ 60 mls/hr [id number] IV 06/29/20 05:30 07/29/20 05:29 07/06/20 20:51 Last 24 Hour Vital Signs Date Time Temp Pulse Resp B/P (MAP) Pulse Ox O2 Delivery O2 Flow Rate FiO2 07/07/20 00:00 98.2 83 22 124/74 (91) 99 07/07/20 00:00 68 07/06/20 21:00 Non-Rebreather 15.0 07/06/20 20:08 95 Non-Rebreather 15.0 100 07/06/20 20:00 98.1 76 19 118/82 (94) 100 07/06/20 20:00 67 07/06/20 16:00 98.0 85 24 136/77 (96) 98 07/06/20 16:00 86 07/06/20 12:00 85 07/06/20 12:00 97.5 106 24 126/72 (90) 94 07/06/20 09:00 Non-Rebreather 15.0 07/06/20 08:00 97.8 90 24 121/78 (92) 97 07/06/20 08:00 77 07/06/20 04:00 77 07/06/20 04:00 97.8 77 20 130/77 (94) 97 07/06/20 00:00 68 07/06/20 00:00 98.0 75 20 135/77 (96) 96 07/05/20 21:00 Non-Rebreather 15.0 07/05/20 20:00 97.7 70 20 125/78 (94) 98 07/05/20 20:00 79 07/05/20 19:36 96 Non-Rebreather 15.0 100 07/05/20 16:00 97.9 79 20 131/79 (96) 97 07/05/20 16:00 77 07/05/20 12:00 98.9 75 20 125/78 (94) 96 07/05/20 12:00 93 07/05/20 09:50 97 Non-Rebreather 15.0 100 07/05/20 09:00 Non-Rebreather 15.0 07/05/20 08:00 80 07/05/20 08:00 97.7 83 22 117/81 (93) 97 Intake and Output 07/06/20 07/07/20 19:00 07:00 Intake Total 975 ml Output Total 1400 ml Balance -425 ml Intake Oral 975 ml Output Urine Total 1400 ml # Bowel Movements 1 Labs Test 07/04/20 11:41 07/05/20 08:15 07/05/20 18:27 07/05/20 21:14 POC Whole Blood Glucose 263 MG/DL (74-106) 312 MG/DL (74-106) White Blood Count 13.4 K/UL (4.8-10.8) Red Blood Count 4.76 M/UL (4.70-6.10) Hemoglobin 16.0 G/DL (14.2-18.0) Hematocrit 43.6 % (42.0-52.0) Mean Corpuscular Volume 92 FL (80-99) Mean Corpuscular Hemoglobin 33.6 PG (27.0-31.0) Mean Corpuscular Hemoglobin Concent 36.6 G/DL (32.0-36.0) Red Cell Distribution Width 11.9 % (11.6-14.8) Platelet Count 260 K/UL (150-450) Mean Platelet Volume 7.9 FL (6.5-10.1) Neutrophils (%) (Auto) % (45.0-75.0) Lymphocytes (%) (Auto) % (20.0-45.0) Monocytes (%) (Auto) % (1.0-10.0) Eosinophils (%) (Auto) % (0.0-3.0) Basophils (%) (Auto) % (0.0-2.0) Differential Total Cells Counted 100 Neutrophils % (Manual) 89 % (45-75) Lymphocytes % (Manual) 10 % (20-45) Monocytes % (Manual) 1 % (1-10) Eosinophils % (Manual) 0 % (0-3) Basophils % (Manual) 0 % (0-2) Band Neutrophils 0 % (0-8) Platelet Estimate Adequate Platelet Morphology Normal Red Blood Cell Morphology Normal Sodium Level 134 MMOL/L (136-145) Potassium Level 3.9 MMOL/L (3.5-5.1) Chloride Level 101 MMOL/L (98-107) Carbon Dioxide Level 24 MMOL/L (21-32) Anion Gap 9 mmol/L (5-15) Blood Urea Nitrogen 13 mg/dL (7-18) Creatinine 0.6 MG/DL (0.55-1.30) Estimat Glomerular Filtration Rate > 60 mL/min (>60) Glucose Level 139 MG/DL (74-106) Calcium Level 8.1 MG/DL (8.5-10.1) Total Bilirubin 1.0 MG/DL (0.2-1.0) Direct Bilirubin 0.2 MG/DL (0.0-0.3) Aspartate Amino Transf (AST/SGOT) 42 U/L (15-37) Alanine Aminotransferase (ALT/SGPT) 126 U/L (12-78) Alkaline Phosphatase 92 U/L (46-116) Total Protein 6.9 G/DL (6.4-8.2) Albumin 2.4 G/DL (3.4-5.0) Globulin 4.5 g/dL Albumin/Globulin Ratio 0.5 (1.0-2.7) Test 07/06/20 06:10 07/06/20 10:19 07/06/20 12:16 07/07/20 04:00 White Blood Count 13.3 K/UL (4.8-10.8) Red Blood Count 4.66 M/UL (4.70-6.10) Hemoglobin 15.7 G/DL (14.2-18.0) Hematocrit 42.3 % (42.0-52.0) Mean Corpuscular Volume 91 FL (80-99) Mean Corpuscular Hemoglobin 33.7 PG (27.0-31.0) Mean Corpuscular Hemoglobin Concent 37.1 G/DL (32.0-36.0) Red Cell Distribution Width 12.3 % (11.6-14.8) Platelet Count 225 K/UL (150-450) Mean Platelet Volume 7.7 FL (6.5-10.1) Neutrophils (%) (Auto) 88.9 % (45.0-75.0) Lymphocytes (%) (Auto) 6.8 % (20.0-45.0) Monocytes (%) (Auto) 2.7 % (1.0-10.0) Eosinophils (%) (Auto) 1.0 % (0.0-3.0) Basophils (%) (Auto) 0.5 % (0.0-2.0) Sodium Level 136 MMOL/L (136-145) 134 MMOL/L (136-145) Potassium Level 4.0 MMOL/L (3.5-5.1) 4.7 MMOL/L (3.5-5.1) Chloride Level 102 MMOL/L (98-107) 101 MMOL/L (98-107) Carbon Dioxide Level 24 MMOL/L (21-32) 26 MMOL/L (21-32) Anion Gap 10 mmol/L (5-15) 7 mmol/L (5-15) Blood Urea Nitrogen 13 mg/dL (7-18) 13 mg/dL (7-18) Creatinine 0.6 MG/DL (0.55-1.30) 0.6 MG/DL (0.55-1.30) Estimat Glomerular Filtration Rate > 60 mL/min (>60) > 60 mL/min (>60) Glucose Level 71 MG/DL (74-106) 131 MG/DL (74-106) Calcium Level 8.3 MG/DL (8.5-10.1) 7.9 MG/DL (8.5-10.1) Total Bilirubin 0.9 MG/DL (0.2-1.0) 0.8 MG/DL (0.2-1.0) Direct Bilirubin 0.3 MG/DL (0.0-0.3) 0.3 MG/DL (0.0-0.3) Aspartate Amino Transf (AST/SGOT) 36 U/L (15-37) 39 U/L (15-37) Alanine Aminotransferase (ALT/SGPT) 102 U/L (12-78) 99 U/L (12-78) Alkaline Phosphatase 102 U/L (46-116) 107 U/L (46-116) Total Protein 6.6 G/DL (6.4-8.2) 6.5 G/DL (6.4-8.2) Albumin 2.3 G/DL (3.4-5.0) 2.3 G/DL (3.4-5.0) Globulin 4.3 g/dL 4.2 g/dL Albumin/Globulin Ratio 0.5 (1.0-2.7) 0.5 (1.0-2.7) POC Whole Blood Glucose 191 MG/DL (74-106) Test 07/07/20 05:49 POC Whole Blood Glucose 130 MG/DL (74-106) Height (Feet): 5 Height (Inches): 7.00 Weight (Pounds): 155 Objective General: moderate distress Heent: normocephalic, atraumatic Neck: supple Resp: no respiratory distress, no retraction, ++ nonrebreather Cardiovascular: tachycardia Gastrointestinal: non tender, soft Genitourinary: no CVA tenderness Musculoskeletal: back normal, no calf tenderness Neurologic: alert, motor strength/tone normal, oriented x3, sensory intact Skin: no rash Lymphatic: no adenopathy Ever Mcadams MD Jul 07, 2020 07:37
[2020-07-07 07:38] LABS: HEMATOCRIT 43.3 % (42.0-52.0); MEAN CORPUSCULAR VOLUME 90 FL (80-99); PLATELET COUNT 166 K/UL (150-450); RED BLOOD COUNT 4.79 M/UL (4.70-6.10); RED CELL DISTRIBUTION WIDTH 11.8 % (11.6-14.8); WHITE BLOOD COUNT 9.9 K/UL (4.8-10.8)
[2020-07-07 08:00] VITALS: BP_SYST 127; BP_SYST 135; BP_DIAS 78; BP_DIAS 79
--- NOTE | 2020-07-07 08:03 | NUR ---
NURSE HAND-OFF REPORT: Important Events on Shift:[No significant events during shift] Patient Status: [Stable, FC] Diet: [low NA diet, CCHO MEDIUM] Pending Orders: [] Pending Results/Labs:[] Pending MD notification:[] Latest Vital Signs: Temperature 97.9 , Pulse 60 , B/P 127 /79 , Respiratory Rate 19 , O2 SAT 97 , Non-Rebreather, O2 Flow Rate 15.0 . Vital Sign Comment: [] EKG Rhythm: Sinus Rhythm Rhythm change?: N MD Notified?: - MD Response: Latest Stafford Fall Score: 20 Fall Risk: Low Risk Safety Measures: Call light Within Reach, Bed Alarm Zone 2, Side Rails Side Rails x2, Bed position Low and Locked. Fall Precautions: Yellow Socks Yellow Gown Patient Fall Education Report given to [Wanda VARGAS].
[2020-07-07] MEDS: metFORMIN 500mg tab ORAL SCH ×3 (08:13→16:40)
[2020-07-07] MEDS: Heparin 5000 units/ml inj SUBQ SCH ×2 (08:15→20:12)
[2020-07-07] MEDS: Levemir Flexpen SUBQ SCH (08:27)
--- NOTE | 2020-07-07 10:28 | NUR ---
RD ASSESSMENT & RECOMMENDATIONS SEE CARE ACTIVITY FOR COMPLETE ASSESSMENT DAILY ESTIMATED NEEDS: Needs based on DM, pulmonary 71kg 25-30 kcals/kg 5114-6260 total kcals 1-1.5 g protein/kg 71-107 g total protein 25-30 mL/kg 1708-9609 total fluid mLs NUTRITION DIAGNOSIS: Altered nutrition related lab values r/t diabetes as evidenced by A1C 6.8, on multiple hypoglycemic agents. CURRENT DIET: Low Na/ [facility] MED PO DIET RECOMMENDATIONS: CCHO MED diet ADDITIONAL RECOMMENDATIONS: 1) Maintain calibrated bed scale wts 2) Accuchecks at night-> monitor for hypoglycemia, none noted 3) Monitor for continued good po intake
--- NOTE | 2020-07-07 10:35 | Infectious Diseases Prog Note ---
Assessment/Plan Assessment/Plan antibiotics : remdesivir A 1. COVID 19 pneumonia on 15 liters O2, saturation 94 percent 2. coag neg staph likely contaminated in blood 3. diabetes mellitus 4. hypertension P 1. complete remdesivir day 5 2. continue decadron day 9 3. will follow up cultures Subjective Constitutional: Denies: fever, chills Respiratory: Reports: shortness of breath; Denies: dry cough Gastrointestinal/Abdominal: Denies: nausea, vomiting, diarrhea Musculoskeletal: Denies: pain Allergies: Coded Allergies: No Known Allergies (Unverified , 07/11/18) Objective Last 24 Hour Vital Signs Date Time Temp Pulse Resp B/P (MAP) Pulse Ox O2 Delivery O2 Flow Rate FiO2 07/07/20 04:00 97.9 75 19 127/79 (95) 97 07/07/20 04:00 60 07/07/20 00:00 98.2 83 22 124/74 (91) 99 07/07/20 00:00 68 07/06/20 21:00 Non-Rebreather 15.0 07/06/20 20:08 95 Non-Rebreather 15.0 100 07/06/20 20:00 98.1 76 19 118/82 (94) 100 07/06/20 20:00 67 07/06/20 16:00 98.0 85 24 136/77 (96) 98 07/06/20 16:00 86 07/06/20 12:00 85 07/06/20 12:00 97.5 106 24 126/72 (90) 94 Height (Feet): 5 Height (Inches): 7.00 Weight (Pounds): 155 Laboratory Tests Test 07/06/20 12:16 07/07/20 04:00 07/07/20 05:49 07/07/20 08:21 POC Whole Blood Glucose 191 MG/DL (74-106) H 130 MG/DL (74-106) H 88 MG/DL (74-106) White Blood Count 9.9 K/UL (4.8-10.8) Red Blood Count 4.79 M/UL (4.70-6.10) Hemoglobin 16.0 G/DL (14.2-18.0) Hematocrit 43.3 % (42.0-52.0) Mean Corpuscular Volume 90 FL (80-99) Mean Corpuscular Hemoglobin 33.3 PG (27.0-31.0) H Mean Corpuscular Hemoglobin Concent 36.9 G/DL (32.0-36.0) H Red Cell Distribution Width 11.8 % (11.6-14.8) Platelet Count 166 K/UL (150-450) Mean Platelet Volume 8.6 FL (6.5-10.1) Neutrophils (%) (Auto) % (45.0-75.0) Lymphocytes (%) (Auto) % (20.0-45.0) Monocytes (%) (Auto) % (1.0-10.0) Eosinophils (%) (Auto) % (0.0-3.0) Basophils (%) (Auto) % (0.0-2.0) Neutrophils % (Manual) Pending Lymphocytes % (Manual) Pending Platelet Estimate Pending Platelet Morphology Pending Sodium Level 134 MMOL/L (136-145) L Potassium Level 4.7 MMOL/L (3.5-5.1) Chloride Level 101 MMOL/L (98-107) Carbon Dioxide Level 26 MMOL/L (21-32) Anion Gap 7 mmol/L (5-15) Blood Urea Nitrogen 13 mg/dL (7-18) Creatinine 0.6 MG/DL (0.55-1.30) Estimat Glomerular Filtration Rate > 60 mL/min (>60) Glucose Level 131 MG/DL (74-106) H Calcium Level 7.9 MG/DL (8.5-10.1) L Total Bilirubin 0.8 MG/DL (0.2-1.0) Direct Bilirubin 0.3 MG/DL (0.0-0.3) Aspartate Amino Transf (AST/SGOT) 39 U/L (15-37) H Alanine Aminotransferase (ALT/SGPT) 99 U/L (12-78) H Alkaline Phosphatase 107 U/L (46-116) Total Protein 6.5 G/DL (6.4-8.2) Albumin 2.3 G/DL (3.4-5.0) L Globulin 4.2 g/dL Albumin/Globulin Ratio 0.5 (1.0-2.7) L Current Medications Medications (Trade) Dose Ordered Sig/Sunshine Route PRN Reason Start Time Stop Time Status Last Admin Dose Admin Acetaminophen (Tylenol) 650 mg Q6H PRN ORAL Pain 0-4/10 or Temp >100.4 F 06/29/20 04:15 07/29/20 04:14 Albuterol/ Ipratropium (Combivent Respimat) 1 puff Q6H PRN INH coughing/SOB 06/29/20 07:00 07/29/20 06:59 Dexamethasone Sodium Phosphate (Decadron 4mg/ml vial) 6 mg DAILY IVP 07/04/20 09:00 07/09/20 09:01 07/07/20 08:13 Dextrose (Dextrose 50%) 25 ml Q30M PRN IV Hypoglycemia 06/29/20 18:30 09/27/20 18:29 Dextrose (Dextrose 50%) 50 ml Q30M PRN IV Hypoglycemia 06/29/20 18:30 09/27/20 18:29 Guaifenesin/ Codeine Phosphate (Robitussin with codeine) 5 ml Q6H PRN ORAL For Cough 07/06/20 16:15 08/05/20 16:14 07/07/20 08:13 Heparin Sodium (Porcine) (Heparin 5000 units/ml) 5,000 units EVERY 12 HOURS SUBQ 06/29/20 09:00 08/13/20 08:59 07/07/20 08:15 Insulin Aspart (NovoLOG) BEFORE MEALS AND HS SUBQ 06/29/20 06:30 09/27/20 06:29 07/06/20 20:51 Insulin Aspart (NovoLOG) 6 units NOVOTIAC SUBQ 07/06/20 11:50 09/27/20 18:29 07/07/20 05:58 Insulin Detemir (Levemir) 12 units DAILY SUBQ 07/03/20 09:00 09/27/20 20:59 07/07/20 08:27 Metformin HCl (Glucophage) 500 mg TIWM ORAL 07/07/20 07:00 08/06/20 06:59 07/07/20 08:13 Ondansetron HCl (Zofran) 4 mg Q6H PRN IVP Nausea & Vomiting 06/29/20 04:15 07/29/20 04:14 Remdesivir 100 mg/ Sodium Chloride 250 ml @ 250 mls/hr Q24H IV 07/04/20 18:00 07/07/20 18:59 07/06/20 18:16 Sodium Chloride 1,000 ml @ 60 mls/hr [id number] IV 06/29/20 05:30 07/29/20 05:29 07/06/20 20:51 Navarro Zuñiga MD Jul 07, 2020 10:35
[2020-07-07 12:00] VITALS: BP 133/82
[2020-07-07 16:00] VITALS: BP 123/80
--- NOTE | 2020-07-07 16:38 | Pulmonology Progress Note ---
Subjective ROS Limited/Unobtainable: Yes Interval Events: none major Constitutional: Denies: fever, chills HEENT: Repors: no symptoms Respiratory: Reports: dry cough Cardiovascular: Reports: no symptoms Gastrointestinal/Abdominal: Denies: nausea, vomiting, diarrhea Musculoskeletal: Denies: pain Allergies: Coded Allergies: No Known Allergies (Unverified , 07/11/18) All Systems: reviewed and negative except above Objective Last 24 Hour Vital Signs Date Time Temp Pulse Resp B/P (MAP) Pulse Ox O2 Delivery O2 Flow Rate FiO2 07/07/20 12:00 82 07/07/20 12:00 98.0 77 20 133/82 (99) 97 07/07/20 08:00 77 07/07/20 08:00 98.5 82 20 135/78 (97) 96 07/07/20 04:00 97.9 75 19 127/79 (95) 97 07/07/20 04:00 60 07/07/20 00:00 98.2 83 22 124/74 (91) 99 07/07/20 00:00 68 07/06/20 21:00 Non-Rebreather 15.0 07/06/20 20:08 95 Non-Rebreather 15.0 100 07/06/20 20:00 98.1 76 19 118/82 (94) 100 07/06/20 20:00 67 Intake and Output 07/06/20 07/07/20 19:00 07:00 Intake Total 975 ml Output Total 1400 ml 1000 ml Balance -425 ml -1000 ml Intake Oral 975 ml Output Urine Total 1400 ml 1000 ml # Bowel Movements 1 Objective 07/07 on NRB 15L saturating well 07/06/2020 on NRB 15L saturating well 07/05/2020 on NRB 15L saturating well; on RA his saturation drops to mid 80s, per RN 07/04/2020 on NRB 15 L; saturating well 07/03/2020 now on NRB 15 L, pt reports he's breathing fine; due for dialysis today 07/02/2020 now at 10 L simple face mask saturating >92% 07/01/2020 per RN pt saturating at low 90s with 6 lpm oxygen simple face mask 06/30/2020 saturating 96% on 6 lpm simple face mask; pt subjectively feels better 06/29/2020 pt in bed; saturating 97% on 6 lpm simple face mask General Appearance: WD/WN, no acute distress HEENT: normocephalic Respiratory: chest wall non-tender, lungs clear, normal breath sounds Cardiovascular: normal rate, regular rhythm, no gallop/murmur Laboratory Tests 07/07/20 04:00: White Blood Count 9.9, Red Blood Count 4.79, Hemoglobin 16.0, Hematocrit 43.3, Mean Corpuscular Volume 90, Mean Corpuscular Hemoglobin 33.3H, Mean Corpuscular Hemoglobin Concent 36.9H, Red Cell Distribution Width 11.8, Platelet Count 166, Mean Platelet Volume 8.6, Neutrophils (%) (Auto) , Lymphocytes (%) (Auto) , Monocytes (%) (Auto) , Eosinophils (%) (Auto) , Basophils (%) (Auto) , Differential Total Cells Counted 100, Neutrophils % (Manual) 87H, Lymphocytes % (Manual) 12L, Monocytes % (Manual) 1, Eosinophils % (Manual) 0, Basophils % (Manual) 0, Band Neutrophils 0, Platelet Estimate Adequate, Platelet Morphology Normal, Red Blood Cell Morphology Normal, Sodium Level 134L, Potassium Level 4.7, Chloride Level 101, Carbon Dioxide Level 26, Anion Gap 7, Blood Urea Nitrogen 13, Creatinine 0.6, Estimat Glomerular Filtration Rate > 60, Glucose Level 131H, Calcium Level 7.9L, Total Bilirubin 0.8, Direct Bilirubin 0.3, Aspartate Amino Transf (AST/SGOT) 39H, Alanine Aminotransferase (ALT/SGPT) 99H, Alkaline Phosphatase 107, Total Protein 6.5, Albumin 2.3L, Globulin 4.2, Albumin/Globulin Ratio 0.5L 07/07/20 05:49: POC Whole Blood Glucose 130H 07/07/20 08:21: POC Whole Blood Glucose 88 Current Medications Medications (Trade) Dose Ordered Sig/Sunshine Route PRN Reason Start Time Stop Time Status Last Admin Dose Admin Acetaminophen (Tylenol) 650 mg Q6H PRN ORAL Pain 0-4/10 or Temp >100.4 F 06/29/20 04:15 07/29/20 04:14 Albuterol/ Ipratropium (Combivent Respimat) 1 puff Q6H PRN INH coughing/SOB 06/29/20 07:00 07/29/20 06:59 Dexamethasone Sodium Phosphate (Decadron 4mg/ml vial) 6 mg DAILY IVP 07/04/20 09:00 07/09/20 09:01 07/07/20 08:13 Dextrose (Dextrose 50%) 25 ml Q30M PRN IV Hypoglycemia 06/29/20 18:30 09/27/20 18:29 Dextrose (Dextrose 50%) 50 ml Q30M PRN IV Hypoglycemia 06/29/20 18:30 09/27/20 18:29 Guaifenesin/ Codeine Phosphate (Robitussin with codeine) 5 ml Q6H PRN ORAL For Cough 07/06/20 16:15 08/05/20 16:14 07/07/20 08:13 Heparin Sodium (Porcine) (Heparin 5000 units/ml) 5,000 units EVERY 12 HOURS SUBQ 06/29/20 09:00 08/13/20 08:59 07/07/20 08:15 Insulin Aspart (NovoLOG) BEFORE MEALS AND HS SUBQ 06/29/20 06:30 09/27/20 06:29 07/07/20 12:48 Insulin Aspart (NovoLOG) 6 units NOVOTIAC SUBQ 07/06/20 11:50 09/27/20 18:29 07/07/20 11:50 Insulin Detemir (Levemir) 12 units DAILY SUBQ 07/03/20 09:00 09/27/20 20:59 07/07/20 08:27 Metformin HCl (Glucophage) 500 mg TIWM ORAL 07/07/20 07:00 08/06/20 06:59 07/07/20 12:50 Ondansetron HCl (Zofran) 4 mg Q6H PRN IVP Nausea & Vomiting 06/29/20 04:15 07/29/20 04:14 Remdesivir 100 mg/ Sodium Chloride 250 ml @ 250 mls/hr Q24H IV 07/04/20 18:00 07/07/20 18:59 07/06/20 18:16 Sodium Chloride 1,000 ml @ 60 mls/hr [id number] IV 06/29/20 05:30 07/29/20 05:29 07/07/20 12:51 Assessment/Plan Assessment/Plan 1. Bilateral pulmonary infiltrates, high suspicion for COVID-19 pneumonia. Now confirmed - on dexamethasone; now also on Remdesivir - s/p empiric Abx - currently on 15 L NRB saturating well; s/p failed attempt on 6-10L oxygen via simple face mask due to desaturation down to 80s. - 06/28/2020 COVID-19 test neg; pcr test positive - cont supplemental oxygen 2. Elevated inflammatory markers. 3. Negative initial rapid gene testing for COVID-19. PCR however positive 4. Hx of hypertension. 5. DM - on glucose-lowering agents 6. Fever. - resolved 7. Bacteremia - on Abx per ID We will follow carefully. Added codeine syrup for cough The care for this patient was discussed with my supervising physician Time spent for this case was approximately 31 minutes Zhen Lebron Jul 07, 2020 16:38
[2020-07-07] MEDS: Maintenance Dose:Remdesivir 100mg/NS 230ml x 4 Doses IV SCH ×2 (18:24)
--- NOTE | 2020-07-07 19:17 | NUR ---
NURSE NOTES: Patient received from Wanda VARGAS. Patient in stable condition. Alert and oriented x4. Saturating well on 15L of oxygen via Non rebreather mask. No c/o pain and no s/s of distress. Patient running Remdesivir at this moment. IV site on Right AC 20G and Right FA 22G patent and intact. Bed in lowest position and locked. Call light and bedside table within reach. Will continue plan of care.
--- NOTE | 2020-07-07 19:18 | NUR ---
NURSE HAND-OFF REPORT: Important Events on Shift:[] Patient Status: full code, stable condition, on nonrebreather 15L Diet: low sodium and CCHO medium Pending Orders: [] Pending Results/Labs:[] Pending MD notification:[] Latest Vital Signs: Temperature 98.2 , Pulse 80 , B/P 123 /80 , Respiratory Rate 20 , O2 SAT 94 , Non-Rebreather, O2 Flow Rate 15.0 . Vital Sign Comment: [] EKG Rhythm: Sinus Rhythm Rhythm change?: N MD Notified?: - MD Response: Latest Stafford Fall Score: 20 Fall Risk: Low Risk Safety Measures: Call light Within Reach, Bed Alarm Zone 2, Side Rails Side Rails x2, Bed position Low and Locked. Fall Precautions: Yellow Socks Yellow Gown Patient Fall Education Report given to Zion Lopez RN.
[2020-07-07 20:00] VITALS: BP 127/78
--- NOTE | 2020-07-07 21:24 | General Progress Note ---
Subjective ROS Limited/Unobtainable: Yes Allergies: Coded Allergies: No Known Allergies (Unverified , 07/11/18) Objective Last 24 Hour Vital Signs Date Time Temp Pulse Resp B/P (MAP) Pulse Ox O2 Delivery O2 Flow Rate FiO2 07/07/20 16:00 98.2 80 20 123/80 (94) 94 07/07/20 16:00 80 07/07/20 12:00 82 07/07/20 12:00 98.0 77 20 133/82 (99) 97 07/07/20 09:00 Non-Rebreather 15.0 07/07/20 08:00 77 07/07/20 08:00 98.5 82 20 135/78 (97) 96 07/07/20 04:00 97.9 75 19 127/79 (95) 97 07/07/20 04:00 60 07/07/20 00:00 98.2 83 22 124/74 (91) 99 07/07/20 00:00 68 Intake and Output 07/06/20 07/07/20 19:00 07:00 Intake Total 975 ml Output Total 1400 ml 1000 ml Balance -425 ml -1000 ml Intake Oral 975 ml Output Urine Total 1400 ml 1000 ml # Bowel Movements 1 Laboratory Tests 07/07/20 04:00: White Blood Count 9.9, Red Blood Count 4.79, Hemoglobin 16.0, Hematocrit 43.3, Mean Corpuscular Volume 90, Mean Corpuscular Hemoglobin 33.3H, Mean Corpuscular Hemoglobin Concent 36.9H, Red Cell Distribution Width 11.8, Platelet Count 166, Mean Platelet Volume 8.6, Neutrophils (%) (Auto) , Lymphocytes (%) (Auto) , Monocytes (%) (Auto) , Eosinophils (%) (Auto) , Basophils (%) (Auto) , Differential Total Cells Counted 100, Neutrophils % (Manual) 87H, Lymphocytes % (Manual) 12L, Monocytes % (Manual) 1, Eosinophils % (Manual) 0, Basophils % (Manual) 0, Band Neutrophils 0, Platelet Estimate Adequate, Platelet Morphology Normal, Red Blood Cell Morphology Normal, Sodium Level 134L, Potassium Level 4.7, Chloride Level 101, Carbon Dioxide Level 26, Anion Gap 7, Blood Urea Nitrogen 13, Creatinine 0.6, Estimat Glomerular Filtration Rate > 60, Glucose Level 131H, Calcium Level 7.9L, Total Bilirubin 0.8, Direct Bilirubin 0.3, Aspartate Amino Transf (AST/SGOT) 39H, Alanine Aminotransferase (ALT/SGPT) 99H, Alkaline Phosphatase 107, Total Protein 6.5, Albumin 2.3L, Globulin 4.2, Albumin/Globulin Ratio 0.5L 07/07/20 05:49: POC Whole Blood Glucose 130H 07/07/20 08:21: POC Whole Blood Glucose 88 07/07/20 16:42: POC Whole Blood Glucose 269H Height (Feet): 5 Height (Inches): 7.00 Weight (Pounds): 155 Assessment/Plan Problem List: (1) Diabetes mellitus out of control ICD Codes: E11.65 - Type 2 diabetes mellitus with hyperglycemia SNOMED: 78391947, 385303753 (2) Pneumonia due to COVID-19 virus ICD Codes: U07.1 - COVID-19; J12.89 - Other viral pneumonia SNOMED: 591290707676158251 (3) Diabetes ICD Codes: E11.9 - Type 2 diabetes mellitus without complications SNOMED: 48135805 (4) Malnutrition ICD Codes: E46 - Unspecified protein-calorie malnutrition SNOMED: 62349623 (5) Hypoxia ICD Codes: R09.02 - Hypoxemia; J12.89 - Other viral pneumonia SNOMED: 581248394 (6) UTI (urinary tract infection) ICD Codes: N39.0 - Urinary tract infection, site not specified SNOMED: 67380548 (7) Pneumonia ICD Codes: J18.9 - Pneumonia, unspecified organism SNOMED: 566066955 (8) HTN (hypertension) ICD Codes: I10 - Essential (primary) hypertension SNOMED: 89696688 Status: stable, progressing Assessment/Plan: resp insuff covid + dm sugar is improving uti improving Tory Schaffer MD Jul 07, 2020 21:24
[2020-07-08] VITALS: BP 141/83
[2020-07-08 04:00] VITALS: BP 112/71
[2020-07-08 05:11] LABS: ANION GAP 6 mmol/L (5-15); BLOOD UREA NITROGEN 14 mg/dL (7-18); CALCIUM 8.3 MG/DL (8.5-10.1); CARBON DIOXIDE 26 MMOL/L (21-32); CHLORIDE 101 MMOL/L (98-107); CREATININE 0.6 MG/DL (0.55-1.30); POTASSIUM 4.5 MMOL/L (3.5-5.1); SODIUM 133 MMOL/L (136-145)
--- NOTE | 2020-07-08 05:30 | NUR ---
NURSE NOTES: Called Luke RT to try and titrate patient.
[2020-07-08] MEDS: guaiFENesin w/Codeine 5ml Liq ud ORAL PRN (06:17)
[2020-07-08] MEDS: metFORMIN 500mg tab ORAL SCH ×3 (06:17→16:08)
[2020-07-08] MEDS: NovoLOG Insulin Flexpen SUBQ SCH ×7 (06:18→20:28)
--- NOTE | 2020-07-08 06:30 | NUR ---
NURSE NOTES: Called RT again to try and titrate patient. Rt didnt come earlier.
--- NOTE | 2020-07-08 07:19 | NUR ---
NURSE NOTES: Received hand-off report from Zion Lopez RN. Patient in bed, stable condition, breathing even and unlabored on non-rebreather 15L. Will call RT to titrate patient's oxygen. monitor worker in place, bed in lowest and locked position, bed alarm on, side rails upx2, alert and oriented x4.
--- NOTE | 2020-07-08 07:43 | NUR ---
NURSE HAND-OFF REPORT: Important Events on Shift:[] Patient Status: [FC, Stable, NRB 15L] Diet: [LOW NA, CCHO MEDIUM] Pending Orders: [] Pending Results/Labs:[] Pending MD notification:[] Latest Vital Signs: Temperature 98.4 , Pulse 60 , B/P 112 /71 , Respiratory Rate 22 , O2 SAT 99 , Non-Rebreather, O2 Flow Rate 15.0 . Vital Sign Comment: [] EKG Rhythm: Sinus Rhythm Rhythm change?: N MD Notified?: - MD Response: Latest Stafford Fall Score: 20 Fall Risk: Low Risk Safety Measures: Call light Within Reach, Bed Alarm Zone 2, Side Rails Side Rails x2, Bed position Low and Locked. Fall Precautions: Yellow Socks Yellow Gown Patient Fall Education Report given to [Wanda VARGAS].
[2020-07-08 08:00] VITALS: BP 125/82
[2020-07-08] MEDS: Heparin 5000 units/ml inj SUBQ SCH ×2 (08:42→20:20)
[2020-07-08] MEDS: Levemir Flexpen SUBQ SCH ×2 (08:57→20:27)
--- NOTE | 2020-07-08 10:16 | General Progress Note ---
Subjective ROS Limited/Unobtainable: Yes Allergies: Coded Allergies: No Known Allergies (Unverified , 07/11/18) Subjective events noted interval notes reviewed mealtime glucose improved Item Value Date Time Bedside Blood Glucose 97 mg/dl 07/08/20 0857 Bedside Blood Glucose 153 mg/dl H 07/08/20 0630 Bedside Blood Glucose 225 mg/dl H 07/07/20 2100 Bedside Blood Glucose 269 mg/dl H 07/07/20 1644 Bedside Blood Glucose 278 mg/dl H 07/07/20 1248 Bedside Blood Glucose 88 mg/dl 07/07/20 0827 Bedside Blood Glucose 130 mg/dl H 07/07/20 0630 Objective Last 24 Hour Vital Signs Date Time Temp Pulse Resp B/P (MAP) Pulse Ox O2 Delivery O2 Flow Rate FiO2 07/08/20 08:00 66 07/08/20 08:00 98.0 66 20 125/82 (96) 95 07/08/20 04:00 98.4 66 22 112/71 (85) 99 07/08/20 04:00 60 07/08/20 00:00 98.8 62 24 141/83 (102) 99 07/08/20 00:00 62 07/07/20 21:00 Non-Rebreather 15.0 07/07/20 20:00 97.7 74 20 127/78 (94) 100 07/07/20 16:00 98.2 80 20 123/80 (94) 94 07/07/20 16:00 80 07/07/20 12:00 82 07/07/20 12:00 98.0 77 20 133/82 (99) 97 Intake and Output 07/07/20 07/08/20 19:00 07:00 Intake Total 1000 ml Output Total 800 ml Balance 1000 ml -800 ml Intake Oral 1000 ml Output Urine Total 800 ml # Voids 3 # Bowel Movements 1 Laboratory Tests 07/07/20 16:42: POC Whole Blood Glucose 269H 07/08/20 03:30: Sodium Level 133L, Potassium Level 4.5, Chloride Level 101, Carbon Dioxide Level 26, Anion Gap 6, Blood Urea Nitrogen 14, Creatinine 0.6, Estimat Glomerular Filtration Rate > 60, Glucose Level 184H, Calcium Level 8.3L Height (Feet): 5 Height (Inches): 7.00 Weight (Pounds): 155 Objective Current Medications Medications (Trade) Dose Ordered Sig/Sunshine Route PRN Reason Start Time Stop Time Status Last Admin Dose Admin Acetaminophen (Tylenol) 650 mg Q6H PRN ORAL Pain 0-4/10 or Temp >100.4 F 06/29/20 04:15 07/29/20 04:14 Albuterol/ Ipratropium (Combivent Respimat) 1 puff Q6H PRN INH coughing/SOB 06/29/20 07:00 07/29/20 06:59 Dexamethasone Sodium Phosphate (Decadron 4mg/ml vial) 6 mg DAILY IVP 07/04/20 09:00 07/09/20 09:01 07/08/20 08:41 Dextrose (Dextrose 50%) 25 ml Q30M PRN IV Hypoglycemia 06/29/20 18:30 09/27/20 18:29 Dextrose (Dextrose 50%) 50 ml Q30M PRN IV Hypoglycemia 06/29/20 18:30 09/27/20 18:29 Guaifenesin/ Codeine Phosphate (Robitussin with codeine) 5 ml Q6H PRN ORAL For Cough 07/06/20 16:15 08/05/20 16:14 07/08/20 06:17 Heparin Sodium (Porcine) (Heparin 5000 units/ml) 5,000 units EVERY 12 HOURS SUBQ 06/29/20 09:00 08/13/20 08:59 07/08/20 08:42 Insulin Aspart (NovoLOG) BEFORE MEALS AND HS SUBQ 06/29/20 06:30 09/27/20 06:29 07/08/20 06:18 Insulin Aspart (NovoLOG) 6 units NOVOTIAC SUBQ 07/06/20 11:50 09/27/20 18:29 07/08/20 06:19 Insulin Detemir (Levemir) 12 units DAILY SUBQ 07/03/20 09:00 09/27/20 20:59 07/07/20 08:27 Metformin HCl (Glucophage) 500 mg TIWM ORAL 07/07/20 07:00 08/06/20 06:59 07/08/20 06:17 Ondansetron HCl (Zofran) 4 mg Q6H PRN IVP Nausea & Vomiting 06/29/20 04:15 07/29/20 04:14 Sodium Chloride 1,000 ml @ 60 mls/hr [id number] IV 06/29/20 05:30 07/29/20 05:29 07/08/20 05:31 Assessment/Plan Problem List: (1) Diabetes mellitus out of control ICD Codes: E11.65 - Type 2 diabetes mellitus with hyperglycemia SNOMED: 99304580, 201894369 (2) Pneumonia due to COVID-19 virus ICD Codes: U07.1 - COVID-19; J12.89 - Other viral pneumonia SNOMED: 628932012948124479 Status: stable, progressing Assessment/Plan: continue Metformin 500 mg tid change Levemir 12 units qam to qhs continue Novolog 6 units ac tid continue Novolog sliding scale ac Lucio Portillo MD Jul 08, 2020 10:16
[2020-07-08 12:00] VITALS: BP 118/85
--- NOTE | 2020-07-08 12:39 | Pulmonology Progress Note ---
Subjective ROS Limited/Unobtainable: Yes Interval Events: none major reported per nursing Constitutional: Denies: fever, chills HEENT: Repors: no symptoms Respiratory: Reports: dry cough Cardiovascular: Reports: no symptoms Gastrointestinal/Abdominal: Denies: nausea, vomiting, diarrhea Musculoskeletal: Denies: pain Allergies: Coded Allergies: No Known Allergies (Unverified , 07/11/18) All Systems: reviewed and negative except above Objective Last 24 Hour Vital Signs Date Time Temp Pulse Resp B/P (MAP) Pulse Ox O2 Delivery O2 Flow Rate FiO2 07/08/20 08:00 66 07/08/20 08:00 98.0 66 20 125/82 (96) 95 07/08/20 04:00 98.4 66 22 112/71 (85) 99 07/08/20 04:00 60 07/08/20 00:00 98.8 62 24 141/83 (102) 99 07/08/20 00:00 62 07/07/20 21:00 Non-Rebreather 15.0 07/07/20 20:00 97.7 74 20 127/78 (94) 100 07/07/20 16:00 98.2 80 20 123/80 (94) 94 07/07/20 16:00 80 Intake and Output 07/07/20 07/08/20 19:00 07:00 Intake Total 1000 ml Output Total 800 ml Balance 1000 ml -800 ml Intake Oral 1000 ml Output Urine Total 800 ml # Voids 3 # Bowel Movements 1 Objective 07/08 on Venturi mask 14L FiO2 55% saturating at 95% 07/07 on NRB 15L saturating well 07/06/2020 on NRB 15L saturating well 07/05/2020 on NRB 15L saturating well; on RA his saturation drops to mid 80s, per RN 07/04/2020 on NRB 15 L; saturating well 07/03/2020 now on NRB 15 L, pt reports he's breathing fine; due for dialysis today 07/02/2020 now at 10 L simple face mask saturating >92% 07/01/2020 per RN pt saturating at low 90s with 6 lpm oxygen simple face mask 06/30/2020 saturating 96% on 6 lpm simple face mask; pt subjectively feels better 06/29/2020 pt in bed; saturating 97% on 6 lpm simple face mask General Appearance: WD/WN, no acute distress HEENT: normocephalic Respiratory: chest wall non-tender, lungs clear, normal breath sounds Cardiovascular: normal rate, regular rhythm, no gallop/murmur Laboratory Tests 07/07/20 16:42: POC Whole Blood Glucose 269H 07/08/20 03:30: Sodium Level 133L, Potassium Level 4.5, Chloride Level 101, Carbon Dioxide Level 26, Anion Gap 6, Blood Urea Nitrogen 14, Creatinine 0.6, Estimat Glomerular Filtration Rate > 60, Glucose Level 184H, Calcium Level 8.3L 07/08/20 11:51: POC Whole Blood Glucose 238H Current Medications Medications (Trade) Dose Ordered Sig/Sunshine Route PRN Reason Start Time Stop Time Status Last Admin Dose Admin Acetaminophen (Tylenol) 650 mg Q6H PRN ORAL Pain 0-4/10 or Temp >100.4 F 06/29/20 04:15 07/29/20 04:14 Albuterol/ Ipratropium (Combivent Respimat) 1 puff Q6H PRN INH coughing/SOB 06/29/20 07:00 07/29/20 06:59 Dexamethasone Sodium Phosphate (Decadron 4mg/ml vial) 6 mg DAILY IVP 07/04/20 09:00 07/09/20 09:01 07/08/20 08:41 Dextrose (Dextrose 50%) 25 ml Q30M PRN IV Hypoglycemia 06/29/20 18:30 09/27/20 18:29 Dextrose (Dextrose 50%) 50 ml Q30M PRN IV Hypoglycemia 06/29/20 18:30 09/27/20 18:29 Guaifenesin/ Codeine Phosphate (Robitussin with codeine) 5 ml Q6H PRN ORAL For Cough 07/06/20 16:15 08/05/20 16:14 07/08/20 06:17 Heparin Sodium (Porcine) (Heparin 5000 units/ml) 5,000 units EVERY 12 HOURS SUBQ 06/29/20 09:00 08/13/20 08:59 07/08/20 08:42 Insulin Aspart (NovoLOG) BEFORE MEALS AND HS SUBQ 06/29/20 06:30 09/27/20 06:29 07/08/20 11:53 Insulin Aspart (NovoLOG) 6 units NOVOTIAC SUBQ 07/06/20 11:50 09/27/20 18:29 07/08/20 11:55 Insulin Detemir (Levemir) 12 units QHS SUBQ 07/08/20 21:00 09/27/20 20:59 Metformin HCl (Glucophage) 500 mg TIWM ORAL 07/07/20 07:00 08/06/20 06:59 07/08/20 11:57 Ondansetron HCl (Zofran) 4 mg Q6H PRN IVP Nausea & Vomiting 06/29/20 04:15 07/29/20 04:14 Sodium Chloride 1,000 ml @ 60 mls/hr [id number] IV 06/29/20 05:30 07/29/20 05:29 07/08/20 05:31 Assessment/Plan Assessment/Plan 1. Bilateral pulmonary infiltrates, high suspicion for COVID-19 pneumonia. Now confirmed - on dexamethasone - s/p Remdesivir - s/p empiric Abx - currently on FiO2 55% Venturi mask saturating at 95% - 06/28/2020 COVID-19 test neg; pcr test positive - cont supplemental oxygen; titrate down as tolerated; keep saO2 >92% 2. Elevated inflammatory markers. 3. Negative initial rapid gene testing for COVID-19. PCR however positive 4. Hx of hypertension. 5. DM - on glucose-lowering agents 6. Fever. - resolved 7. Bacteremia - on Abx per ID We will follow carefully. Added codeine syrup for cough The care for this patient was discussed with my supervising physician Time spent for this case was approximately 31 minutes Zhen Lebron Jul 08, 2020 12:39 Eloy Garg MD Jul 08, 2020 16:34
[2020-07-08 16:00] VITALS: BP 140/98
--- NOTE | 2020-07-08 19:10 | NUR ---
NURSE HAND-OFF REPORT: Important Events on Shift:titrating oxygen down, currently on venturi mask, spO2: 98% Patient Status: stable condition, full code Diet: low sodium diet, CCHO medium Pending Orders: [] Pending Results/Labs:[] Pending MD notification:[] Latest Vital Signs: Temperature 96.9 , Pulse 84 , B/P 140 /98 , Respiratory Rate 20 , O2 SAT 97 , Non-Rebreather, O2 Flow Rate 14.0 . Vital Sign Comment: [] EKG Rhythm: Sinus Tachycardia Rhythm change?: Y MD Notified?: N - MD Response: Latest Stafford Fall Score: 20 Fall Risk: Low Risk Safety Measures: Call light Within Reach, Bed Alarm Zone 2, Side Rails Side Rails x2, Bed position Low and Locked. Fall Precautions: Yellow Socks Yellow Gown Patient Fall Education Report given to ALICIA Ceja.
--- NOTE | 2020-07-08 19:15 | NUR ---
NURSE NOTES: Received report from ALICIA Muñoz; pt noted sitting in bed; AOX4; able to verbalize needs; On venturi mask 10L FiO2 45; tolerating well; in no acute distress; denies any pain; With peripheral IV site on R AC 20 gauge and R forearm 22 gauge; intact and patent; call light within reach; bed locked and in low position; side rails x 2; will continue to monitor.
[2020-07-08 20:00] VITALS: BP 112/77
--- NOTE | 2020-07-08 21:00 | General Progress Note ---
Subjective ROS Limited/Unobtainable: Yes Allergies: Coded Allergies: No Known Allergies (Unverified , 07/11/18) Objective Last 24 Hour Vital Signs Date Time Temp Pulse Resp B/P (MAP) Pulse Ox O2 Delivery O2 Flow Rate FiO2 07/08/20 20:00 97.3 75 20 112/77 (89) 99 07/08/20 16:00 96.9 84 20 140/98 (112) 97 07/08/20 16:00 105 07/08/20 12:00 97.5 76 20 118/85 (96) 98 07/08/20 12:00 76 07/08/20 09:00 Venturi Mask 14.0 07/08/20 08:00 66 07/08/20 08:00 98.0 66 20 125/82 (96) 95 07/08/20 04:00 98.4 66 22 112/71 (85) 99 07/08/20 04:00 60 07/08/20 00:00 98.8 62 24 141/83 (102) 99 07/08/20 00:00 62 07/07/20 21:00 Non-Rebreather 15.0 Intake and Output 07/07/20 07/08/20 19:00 07:00 Intake Total 1000 ml Output Total 800 ml Balance 1000 ml -800 ml Intake Oral 1000 ml Output Urine Total 800 ml # Voids 3 # Bowel Movements 1 Laboratory Tests 07/08/20 03:30: Sodium Level 133L, Potassium Level 4.5, Chloride Level 101, Carbon Dioxide Level 26, Anion Gap 6, Blood Urea Nitrogen 14, Creatinine 0.6, Estimat Glomerular Filtration Rate > 60, Glucose Level 184H, Calcium Level 8.3L 07/08/20 11:51: POC Whole Blood Glucose 238H 07/08/20 16:03: POC Whole Blood Glucose 272H 07/08/20 20:24: POC Whole Blood Glucose 183H Height (Feet): 5 Height (Inches): 7.00 Weight (Pounds): 155 Assessment/Plan Problem List: (1) Diabetes mellitus out of control ICD Codes: E11.65 - Type 2 diabetes mellitus with hyperglycemia SNOMED: 38340563, 471493859 (2) Pneumonia due to COVID-19 virus ICD Codes: U07.1 - COVID-19; J12.89 - Other viral pneumonia SNOMED: 132121831127582076 (3) Diabetes ICD Codes: E11.9 - Type 2 diabetes mellitus without complications SNOMED: 49363557 (4) Malnutrition ICD Codes: E46 - Unspecified protein-calorie malnutrition SNOMED: 31494976 (5) Hypoxia ICD Codes: R09.02 - Hypoxemia; J12.89 - Other viral pneumonia SNOMED: 467412501 (6) UTI (urinary tract infection) ICD Codes: N39.0 - Urinary tract infection, site not specified SNOMED: 67668069 (7) Pneumonia ICD Codes: J18.9 - Pneumonia, unspecified organism SNOMED: 679546814 (8) HTN (hypertension) ICD Codes: I10 - Essential (primary) hypertension SNOMED: 88946443 Status: stable, progressing Assessment/Plan: resp insuff covid + dm uti not hypoxic reviewed chart and labs Tory Schaffer MD Jul 08, 2020 21:00
[2020-07-09] VITALS: BP 93/59
[2020-07-09 04:00] VITALS: BP 122/68
[2020-07-09] MEDS: NovoLOG Insulin Flexpen SUBQ SCH ×7 (06:06→21:18)
--- NOTE | 2020-07-09 07:00 | NUR ---
NURSE HAND-OFF REPORT: Important Events on Shift: N/A Patient Status: AOX4, asleep most of the night; on venturi mask 10L FiO2 45% Diet: lOW na, ccho, MEDIUM, THIN LIQUIDS Pending Orders: N Pending Results/Labs: morning labs Pending MD notification: N Latest Vital Signs: Temperature 97.3 , Pulse 67 , B/P 122 /68 , Respiratory Rate 20 , O2 SAT 97 , Non-Rebreather, O2 Flow Rate 10.0 . Vital Sign Comment: stable EKG Rhythm: Sinus Rhythm Rhythm change?: N MD Notified?: N - MD Response: Latest Stafford Fall Score: 20 Fall Risk: Low Risk Safety Measures: Call light Within Reach, Bed Alarm Zone 1, Side Rails Side Rails x2, Bed position Low and Locked. Fall Precautions: Yellow Socks Yellow Gown Patient Fall Education Report given to ALICIA Muñoz.
--- NOTE | 2020-07-09 07:01 | NUR ---
NURSE NOTES: Received hand-off report from Mitzi Ceja RN. Patient AOX4, breathing even and unlabored on venturi mask 10L FiO2 45%. Bed alarm on, bed in lowest and locked position, call light within reach, radiation monitor on. Will notify RT to titrate oxygen down.
[2020-07-09 08:00] VITALS: BP 117/73
[2020-07-09] MEDS: metFORMIN 500mg tab ORAL SCH ×3 (08:14→17:28)
[2020-07-09] MEDS: Heparin 5000 units/ml inj SUBQ SCH ×2 (08:18→21:15)
[2020-07-09 08:24] LABS: ANION GAP 6 mmol/L (5-15); BLOOD UREA NITROGEN 16 mg/dL (7-18); CALCIUM 8.1 MG/DL (8.5-10.1); CARBON DIOXIDE 27 MMOL/L (21-32); CHLORIDE 101 MMOL/L (98-107); CREATININE 0.5 MG/DL (0.55-1.30); POTASSIUM 4.4 MMOL/L (3.5-5.1); SODIUM 134 MMOL/L (136-145)
--- NOTE | 2020-07-09 08:44 | Hematology/Onc Progress Note ---
Assessment/Plan Assessment/Plan Assessment and recs # Leukocytosis due to Bilateral pulmonary infiltrates, high suspicion for COVID- 19 pneumonia. --> on dexamethasone --> s/p empiric Abx cefepime --> currently on 10 lpm NC saturating well; --> wbc 12-->13 # Elevated ddimer with covid19 pna --> did receive abx since admission --> oxygen supplementation as per before --> pulm re-eval --> venous duplex legs as needed, but hold off, stable for dc # Hypoxia --> 10l Fm, adjust as needed v nonrebreather # Type 2 diabetes # Hypertension # Bacteremia --> per id, on Abx # Dvt ppx heparin sq Appreciate consultation and heydi RN Subjective HEENT: Denies: no symptoms, eye pain, blurred vision, tearing, double vision, ear pain, ear discharge, nose pain, nose congestion, throat pain, throat swelling, mouth pain, mouth swelling, other Cardiovascular: Denies: no symptoms, chest pain, edema, irregular heart rate, lightheadedness, palpitations, syncope, other Genitourinary: Denies: no symptoms, burning, discharge, frequency, flank pain, hematuria, incontinence, pain, urgency, other Neurologic/Psychiatric: Denies: no symptoms, anxiety, depressed, emotional problems, headache, numbness, paresthesia, pre-existing deficit, seizure, tingling, tremors, weakness, other Endocrine: Denies: no symptoms, excessive sweating, flushing, intolerance to cold, intolerance to heat, increased hunger, increased thirst, increased urine, unexplained weight gain, unexplained weight loss, other Allergies: Coded Allergies: No Known Allergies (Unverified , 07/11/18) Subjective 07/04 nonrebreather, meds noted, no bleeding, cbc pending 07/05 labs noted, no bleeding, nrm, no night sweats, heydi garduno 07/06 cbc is pending, labs reviewed, no night sweats, meds noted 07/07 on levemir and novolog, no bleeding, on 15l nrm 07/09 cbc has been ordered, no bleeding, labs reviewed, no events Objective Objective Current Medications Medications (Trade) Dose Ordered Sig/Sunshine Route PRN Reason Start Time Stop Time Status Last Admin Dose Admin Acetaminophen (Tylenol) 650 mg Q6H PRN ORAL Pain 0-4/10 or Temp >100.4 F 06/29/20 04:15 07/29/20 04:14 Albuterol/ Ipratropium (Combivent Respimat) 1 puff Q6H PRN INH coughing/SOB 06/29/20 07:00 07/29/20 06:59 Dexamethasone Sodium Phosphate (Decadron 4mg/ml vial) 6 mg DAILY IVP 07/04/20 09:00 07/09/20 09:01 07/09/20 08:14 Dextrose (Dextrose 50%) 25 ml Q30M PRN IV Hypoglycemia 06/29/20 18:30 09/27/20 18:29 Dextrose (Dextrose 50%) 50 ml Q30M PRN IV Hypoglycemia 06/29/20 18:30 09/27/20 18:29 Guaifenesin/ Codeine Phosphate (Robitussin with codeine) 5 ml Q6H PRN ORAL For Cough 07/06/20 16:15 08/05/20 16:14 07/08/20 06:17 Heparin Sodium (Porcine) (Heparin 5000 units/ml) 5,000 units EVERY 12 HOURS SUBQ 06/29/20 09:00 08/13/20 08:59 07/09/20 08:18 Insulin Aspart (NovoLOG) BEFORE MEALS AND HS SUBQ 06/29/20 06:30 09/27/20 06:29 07/08/20 20:28 Insulin Aspart (NovoLOG) 6 units NOVOTIAC SUBQ 07/06/20 11:50 09/27/20 18:29 07/09/20 06:47 Insulin Detemir (Levemir) 12 units QHS SUBQ 07/08/20 21:00 09/27/20 20:59 07/08/20 20:27 Metformin HCl (Glucophage) 500 mg TIWM ORAL 07/07/20 07:00 08/06/20 06:59 07/09/20 08:14 Ondansetron HCl (Zofran) 4 mg Q6H PRN IVP Nausea & Vomiting 06/29/20 04:15 07/29/20 04:14 Sodium Chloride 1,000 ml @ 60 mls/hr [id number] IV 06/29/20 05:30 07/29/20 05:29 07/08/20 21:57 Last 24 Hour Vital Signs Date Time Temp Pulse Resp B/P (MAP) Pulse Ox O2 Delivery O2 Flow Rate FiO2 07/09/20 04:00 67 07/09/20 04:00 97.3 68 20 122/68 (86) 97 07/09/20 00:00 97.3 72 20 93/59 (70) 97 07/09/20 00:00 64 07/08/20 21:00 Venturi Mask 10.0 07/08/20 20:00 73 07/08/20 20:00 97.3 75 20 112/77 (89) 99 07/08/20 20:00 73 07/08/20 19:40 96 Non-Rebreather 15.0 100 07/08/20 16:00 96.9 84 20 140/98 (112) 97 07/08/20 16:00 105 07/08/20 12:00 97.5 76 20 118/85 (96) 98 07/08/20 12:00 76 07/08/20 09:00 Venturi Mask 14.0 07/08/20 08:00 66 07/08/20 08:00 98.0 66 20 125/82 (96) 95 07/08/20 04:00 98.4 66 22 112/71 (85) 99 07/08/20 04:00 60 07/08/20 00:00 98.8 62 24 141/83 (102) 99 07/08/20 00:00 62 07/07/20 21:00 Non-Rebreather 15.0 07/07/20 20:00 97.7 74 20 127/78 (94) 100 07/07/20 16:00 98.2 80 20 123/80 (94) 94 07/07/20 16:00 80 07/07/20 12:00 82 07/07/20 12:00 98.0 77 20 133/82 (99) 97 07/07/20 09:00 Non-Rebreather 15.0 Intake and Output 07/08/20 07/09/20 19:00 07:00 Intake Total 300 ml Output Total 1500 ml 850 ml Balance -1500 ml -550 ml Intake Oral 300 ml Output Urine Total 1500 ml 850 ml Labs Test 07/06/20 10:19 07/06/20 12:16 07/07/20 04:00 07/07/20 05:49 POC Whole Blood Glucose 191 MG/DL (74-106) 130 MG/DL (74-106) White Blood Count 9.9 K/UL (4.8-10.8) Red Blood Count 4.79 M/UL (4.70-6.10) Hemoglobin 16.0 G/DL (14.2-18.0) Hematocrit 43.3 % (42.0-52.0) Mean Corpuscular Volume 90 FL (80-99) Mean Corpuscular Hemoglobin 33.3 PG (27.0-31.0) Mean Corpuscular Hemoglobin Concent 36.9 G/DL (32.0-36.0) Red Cell Distribution Width 11.8 % (11.6-14.8) Platelet Count 166 K/UL (150-450) Mean Platelet Volume 8.6 FL (6.5-10.1) Neutrophils (%) (Auto) % (45.0-75.0) Lymphocytes (%) (Auto) % (20.0-45.0) Monocytes (%) (Auto) % (1.0-10.0) Eosinophils (%) (Auto) % (0.0-3.0) Basophils (%) (Auto) % (0.0-2.0) Differential Total Cells Counted 100 Neutrophils % (Manual) 87 % (45-75) Lymphocytes % (Manual) 12 % (20-45) Monocytes % (Manual) 1 % (1-10) Eosinophils % (Manual) 0 % (0-3) Basophils % (Manual) 0 % (0-2) Band Neutrophils 0 % (0-8) Platelet Estimate Adequate Platelet Morphology Normal Red Blood Cell Morphology Normal Sodium Level 134 MMOL/L (136-145) Potassium Level 4.7 MMOL/L (3.5-5.1) Chloride Level 101 MMOL/L (98-107) Carbon Dioxide Level 26 MMOL/L (21-32) Anion Gap 7 mmol/L (5-15) Blood Urea Nitrogen 13 mg/dL (7-18) Creatinine 0.6 MG/DL (0.55-1.30) Estimat Glomerular Filtration Rate > 60 mL/min (>60) Glucose Level 131 MG/DL (74-106) Calcium Level 7.9 MG/DL (8.5-10.1) Total Bilirubin 0.8 MG/DL (0.2-1.0) Direct Bilirubin 0.3 MG/DL (0.0-0.3) Aspartate Amino Transf (AST/SGOT) 39 U/L (15-37) Alanine Aminotransferase (ALT/SGPT) 99 U/L (12-78) Alkaline Phosphatase 107 U/L (46-116) Total Protein 6.5 G/DL (6.4-8.2) Albumin 2.3 G/DL (3.4-5.0) Globulin 4.2 g/dL Albumin/Globulin Ratio 0.5 (1.0-2.7) Test 07/07/20 08:21 07/07/20 16:42 07/08/20 03:30 07/08/20 11:51 POC Whole Blood Glucose 88 MG/DL (74-106) 269 MG/DL (74-106) 238 MG/DL (74-106) Sodium Level 133 MMOL/L (136-145) Potassium Level 4.5 MMOL/L (3.5-5.1) Chloride Level 101 MMOL/L (98-107) Carbon Dioxide Level 26 MMOL/L (21-32) Anion Gap 6 mmol/L (5-15) Blood Urea Nitrogen 14 mg/dL (7-18) Creatinine 0.6 MG/DL (0.55-1.30) Estimat Glomerular Filtration Rate > 60 mL/min (>60) Glucose Level 184 MG/DL (74-106) Calcium Level 8.3 MG/DL (8.5-10.1) Test 07/08/20 16:03 07/08/20 20:24 07/09/20 06:10 POC Whole Blood Glucose 272 MG/DL (74-106) 183 MG/DL (74-106) Sodium Level 134 MMOL/L (136-145) Potassium Level 4.4 MMOL/L (3.5-5.1) Chloride Level 101 MMOL/L (98-107) Carbon Dioxide Level 27 MMOL/L (21-32) Anion Gap 6 mmol/L (5-15) Blood Urea Nitrogen 16 mg/dL (7-18) Creatinine 0.5 MG/DL (0.55-1.30) Estimat Glomerular Filtration Rate > 60 mL/min (>60) Glucose Level 102 MG/DL (74-106) Calcium Level 8.1 MG/DL (8.5-10.1) Height (Feet): 5 Height (Inches): 7.00 Weight (Pounds): 155 Objective General: moderate distress Heent: normocephalic, atraumatic Neck: supple Resp: no respiratory distress, no retraction, ++ nonrebreather Cardiovascular: tachycardia Gastrointestinal: non tender, soft Genitourinary: no CVA tenderness Musculoskeletal: back normal, no calf tenderness Neurologic: alert, motor strength/tone normal, oriented x3, sensory intact Skin: no rash Lymphatic: no adenopathy Ever Mcadams MD Jul 09, 2020 08:44
[2020-07-09 10:49] LABS: HEMATOCRIT 43.7 % (42.0-52.0); HEMOGLOBIN 15.8 G/DL (14.2-18.0); MEAN CORPUSCULAR VOLUME 92 FL (80-99); PLATELET COUNT 189 K/UL (150-450); RED BLOOD COUNT 4.75 M/UL (4.70-6.10); RED CELL DISTRIBUTION WIDTH 12.4 % (11.6-14.8); WHITE BLOOD COUNT 13.3 K/UL (4.8-10.8)
--- NOTE | 2020-07-09 11:12 | General Progress Note ---
Subjective Allergies: Coded Allergies: No Known Allergies (Unverified , 07/11/18) Subjective events noted interval notes reviewed mealtime glucose improved last dose of dexamethasone given today Item Value Date Time Bedside Blood Glucose 118 mg/dl 07/09/20 0647 Bedside Blood Glucose 183 mg/dl H 07/08/20 2100 Bedside Blood Glucose 272 mg/dl H 07/08/20 1630 Bedside Blood Glucose 238 mg/dl H 07/08/20 1155 Bedside Blood Glucose 97 mg/dl 07/08/20 0857 Objective Last 24 Hour Vital Signs Date Time Temp Pulse Resp B/P (MAP) Pulse Ox O2 Delivery O2 Flow Rate FiO2 07/09/20 08:00 98.0 72 20 117/73 (88) 98 07/09/20 08:00 72 07/09/20 04:00 67 07/09/20 04:00 97.3 68 20 122/68 (86) 97 07/09/20 00:00 97.3 72 20 93/59 (70) 97 07/09/20 00:00 64 07/08/20 21:00 Venturi Mask 10.0 07/08/20 20:00 73 07/08/20 20:00 97.3 75 20 112/77 (89) 99 07/08/20 20:00 73 07/08/20 19:40 96 Non-Rebreather 15.0 100 07/08/20 16:00 96.9 84 20 140/98 (112) 97 07/08/20 16:00 105 07/08/20 12:00 97.5 76 20 118/85 (96) 98 07/08/20 12:00 76 Intake and Output 07/08/20 07/09/20 19:00 07:00 Intake Total 300 ml Output Total 1500 ml 850 ml Balance -1500 ml -550 ml Intake Oral 300 ml Output Urine Total 1500 ml 850 ml Laboratory Tests 07/08/20 11:51: POC Whole Blood Glucose 238H 07/08/20 16:03: POC Whole Blood Glucose 272H 07/08/20 20:24: POC Whole Blood Glucose 183H 07/09/20 06:10: Sodium Level 134L, Potassium Level 4.4, Chloride Level 101, Carbon Dioxide Level 27, Anion Gap 6, Blood Urea Nitrogen 16, Creatinine 0.5L, Estimat Glomerular Filtration Rate > 60, Glucose Level 102, Calcium Level 8.1L 07/09/20 09:50: White Blood Count 13.3H, Red Blood Count 4.75, Hemoglobin 15.8, Hematocrit 43.7, Mean Corpuscular Volume 92, Mean Corpuscular Hemoglobin 33.2H, Mean Corpuscular Hemoglobin Concent 36.1H, Red Cell Distribution Width 12.4, Platelet Count 189, Mean Platelet Volume 8.7, Neutrophils (%) (Auto) , Lymphocytes (%) (Auto) , Monocytes (%) (Auto) , Eosinophils (%) (Auto) , Basophils (%) (Auto) , Neutrophils % (Manual) [Pending], Lymphocytes % (Manual) [Pending], Platelet Estimate [Pending], Platelet Morphology [Pending] Height (Feet): 5 Height (Inches): 7.00 Weight (Pounds): 155 Objective Current Medications Medications (Trade) Dose Ordered Sig/Sunshine Route PRN Reason Start Time Stop Time Status Last Admin Dose Admin Acetaminophen (Tylenol) 650 mg Q6H PRN ORAL Pain 0-4/10 or Temp >100.4 F 06/29/20 04:15 07/29/20 04:14 Albuterol/ Ipratropium (Combivent Respimat) 1 puff Q6H PRN INH coughing/SOB 06/29/20 07:00 07/29/20 06:59 Dextrose (Dextrose 50%) 25 ml Q30M PRN IV Hypoglycemia 06/29/20 18:30 09/27/20 18:29 Dextrose (Dextrose 50%) 50 ml Q30M PRN IV Hypoglycemia 06/29/20 18:30 09/27/20 18:29 Guaifenesin/ Codeine Phosphate (Robitussin with codeine) 5 ml Q6H PRN ORAL For Cough 07/06/20 16:15 08/05/20 16:14 07/08/20 06:17 Heparin Sodium (Porcine) (Heparin 5000 units/ml) 5,000 units EVERY 12 HOURS SUBQ 06/29/20 09:00 08/13/20 08:59 07/09/20 08:18 Insulin Aspart (NovoLOG) BEFORE MEALS AND HS SUBQ 06/29/20 06:30 09/27/20 06:29 07/08/20 20:28 Insulin Aspart (NovoLOG) 6 units NOVOTIAC SUBQ 07/06/20 11:50 09/27/20 18:29 07/09/20 06:47 Insulin Detemir (Levemir) 12 units QHS SUBQ 07/08/20 21:00 09/27/20 20:59 07/08/20 20:27 Metformin HCl (Glucophage) 500 mg TIWM ORAL 07/07/20 07:00 08/06/20 06:59 07/09/20 08:14 Ondansetron HCl (Zofran) 4 mg Q6H PRN IVP Nausea & Vomiting 06/29/20 04:15 07/29/20 04:14 Sodium Chloride 1,000 ml @ 60 mls/hr [id number] IV 06/29/20 05:30 07/29/20 05:29 07/08/20 21:57 Assessment/Plan Problem List: (1) Diabetes mellitus out of control ICD Codes: E11.65 - Type 2 diabetes mellitus with hyperglycemia SNOMED: 01517051, 237041834 (2) Pneumonia due to COVID-19 virus ICD Codes: U07.1 - COVID-19; J12.89 - Other viral pneumonia SNOMED: 046902201148257901 Status: stable, progressing Assessment/Plan: continue Metformin 500 mg tid change Levemir to 8 units qhs - plan to DC tomorrow continue Novolog 6 units ac tid - plan to DC tomorrow continue Novolog sliding scale ac Lucio Portillo MD Jul 09, 2020 11:12
[2020-07-09 12:00] VITALS: BP 114/78
--- NOTE | 2020-07-09 12:57 | Infectious Diseases Prog Note ---
Assessment/Plan Assessment/Plan A 1. pneumonia with COVID19 2. coag neg staph likely contaminated 3. Diabetes mellitus 4. Hypertension 5. Hypoxemia, improving P 1. Finished Decadron & Remdisivir course 2. will follow up cultures Subjective ROS Limited/Unobtainable: Yes Constitutional: Reports: no symptoms, other - doing better Respiratory: Reports: no symptoms Allergies: Coded Allergies: No Known Allergies (Unverified , 07/11/18) Objective Last 24 Hour Vital Signs Date Time Temp Pulse Resp B/P (MAP) Pulse Ox O2 Delivery O2 Flow Rate FiO2 07/09/20 08:00 98.0 72 20 117/73 (88) 98 07/09/20 08:00 72 07/09/20 04:00 67 07/09/20 04:00 97.3 68 20 122/68 (86) 97 07/09/20 00:00 97.3 72 20 93/59 (70) 97 07/09/20 00:00 64 07/08/20 21:00 Venturi Mask 10.0 07/08/20 20:00 73 07/08/20 20:00 97.3 75 20 112/77 (89) 99 07/08/20 20:00 73 07/08/20 19:40 96 Non-Rebreather 15.0 100 07/08/20 16:00 96.9 84 20 140/98 (112) 97 07/08/20 16:00 105 Height (Feet): 5 Height (Inches): 7.00 Weight (Pounds): 155 HEENT: mucous membranes moist Respiratory/Chest: other - oxygen by nasal cannula Cardiovascular: normal rate Extremities: no edema Neurologic/Psychiatric: alert, responsive Laboratory Tests Test 07/08/20 16:03 07/08/20 20:24 07/09/20 06:10 07/09/20 09:50 POC Whole Blood Glucose 272 MG/DL (74-106) H 183 MG/DL (74-106) H Sodium Level 134 MMOL/L (136-145) L Potassium Level 4.4 MMOL/L (3.5-5.1) Chloride Level 101 MMOL/L (98-107) Carbon Dioxide Level 27 MMOL/L (21-32) Anion Gap 6 mmol/L (5-15) Blood Urea Nitrogen 16 mg/dL (7-18) Creatinine 0.5 MG/DL (0.55-1.30) L Estimat Glomerular Filtration Rate > 60 mL/min (>60) Glucose Level 102 MG/DL (74-106) Calcium Level 8.1 MG/DL (8.5-10.1) L White Blood Count 13.3 K/UL (4.8-10.8) H Red Blood Count 4.75 M/UL (4.70-6.10) Hemoglobin 15.8 G/DL (14.2-18.0) Hematocrit 43.7 % (42.0-52.0) Mean Corpuscular Volume 92 FL (80-99) Mean Corpuscular Hemoglobin 33.2 PG (27.0-31.0) H Mean Corpuscular Hemoglobin Concent 36.1 G/DL (32.0-36.0) H Red Cell Distribution Width 12.4 % (11.6-14.8) Platelet Count 189 K/UL (150-450) Mean Platelet Volume 8.7 FL (6.5-10.1) Neutrophils (%) (Auto) % (45.0-75.0) Lymphocytes (%) (Auto) % (20.0-45.0) Monocytes (%) (Auto) % (1.0-10.0) Eosinophils (%) (Auto) % (0.0-3.0) Basophils (%) (Auto) % (0.0-2.0) Differential Total Cells Counted 100 Neutrophils % (Manual) 89 % (45-75) H Lymphocytes % (Manual) 8 % (20-45) L Monocytes % (Manual) 3 % (1-10) Eosinophils % (Manual) 0 % (0-3) Basophils % (Manual) 0 % (0-2) Band Neutrophils 0 % (0-8) Platelet Estimate Adequate Platelet Morphology Normal Red Blood Cell Morphology Normal Current Medications Medications (Trade) Dose Ordered Sig/Sunshine Route PRN Reason Start Time Stop Time Status Last Admin Dose Admin Acetaminophen (Tylenol) 650 mg Q6H PRN ORAL Pain 0-4/10 or Temp >100.4 F 06/29/20 04:15 07/29/20 04:14 Albuterol/ Ipratropium (Combivent Respimat) 1 puff Q6H PRN INH coughing/SOB 06/29/20 07:00 07/29/20 06:59 Dextrose (Dextrose 50%) 25 ml Q30M PRN IV Hypoglycemia 06/29/20 18:30 09/27/20 18:29 Dextrose (Dextrose 50%) 50 ml Q30M PRN IV Hypoglycemia 06/29/20 18:30 09/27/20 18:29 Guaifenesin/ Codeine Phosphate (Robitussin with codeine) 5 ml Q6H PRN ORAL For Cough 07/06/20 16:15 08/05/20 16:14 07/08/20 06:17 Heparin Sodium (Porcine) (Heparin 5000 units/ml) 5,000 units EVERY 12 HOURS SUBQ 06/29/20 09:00 08/13/20 08:59 07/09/20 08:18 Insulin Aspart (NovoLOG) BEFORE MEALS AND HS SUBQ 06/29/20 06:30 09/27/20 06:29 07/09/20 11:22 Insulin Aspart (NovoLOG) 6 units NOVOTIAC SUBQ 07/06/20 11:50 09/27/20 18:29 07/09/20 11:25 Insulin Detemir (Levemir) 12 units QHS SUBQ 07/08/20 21:00 09/27/20 20:59 07/08/20 20:27 Metformin HCl (Glucophage) 500 mg TIWM ORAL 07/07/20 07:00 08/06/20 06:59 07/09/20 11:26 Ondansetron HCl (Zofran) 4 mg Q6H PRN IVP Nausea & Vomiting 06/29/20 04:15 07/29/20 04:14 Sodium Chloride 1,000 ml @ 60 mls/hr [id number] IV 06/29/20 05:30 07/29/20 05:29 07/08/20 21:57 Luther Moise MD Jul 09, 2020 12:57
--- NOTE | 2020-07-09 14:18 | NUR ---
NURSE NOTES: Notified and left a voicemail for Dr. Garg regarding request for clearance so patient can be discharged. Left a voicemail for Primary Dr. Yun regarding request to discharge this patient. Notified Dr. Zuñiga regarding WBC 13.3. Awaiting response/callback from any one of these doctors.
--- NOTE | 2020-07-09 15:10 | Pulmonology Progress Note ---
Subjective ROS Limited/Unobtainable: Yes Interval Events: none major reported per nursing Constitutional: Reports: no symptoms, other - doing better HEENT: Repors: no symptoms Respiratory: Reports: dry cough Cardiovascular: Reports: no symptoms Gastrointestinal/Abdominal: Denies: nausea, vomiting, diarrhea Musculoskeletal: Denies: pain Allergies: Coded Allergies: No Known Allergies (Unverified , 07/11/18) All Systems: reviewed and negative except above Objective Last 24 Hour Vital Signs Date Time Temp Pulse Resp B/P (MAP) Pulse Ox O2 Delivery O2 Flow Rate FiO2 07/09/20 12:00 73 07/09/20 09:00 Nasal Cannula 3.0 07/09/20 08:00 98.0 72 20 117/73 (88) 98 07/09/20 08:00 72 07/09/20 04:00 67 07/09/20 04:00 97.3 68 20 122/68 (86) 97 07/09/20 00:00 97.3 72 20 93/59 (70) 97 07/09/20 00:00 64 07/08/20 21:00 Venturi Mask 10.0 07/08/20 20:00 73 07/08/20 20:00 97.3 75 20 112/77 (89) 99 07/08/20 20:00 73 07/08/20 19:40 96 Non-Rebreather 15.0 100 07/08/20 16:00 96.9 84 20 140/98 (112) 97 07/08/20 16:00 105 Intake and Output 07/08/20 07/09/20 19:00 07:00 Intake Total 300 ml Output Total 1500 ml 850 ml Balance -1500 ml -550 ml Intake Oral 300 ml Output Urine Total 1500 ml 850 ml Objective 07/09 now on 3 lpm NC saturating at 97%; cont wean down 07/08 on Venturi mask 14L FiO2 55% saturating at 95% 07/07 on NRB 15L saturating well 07/06/2020 on NRB 15L saturating well 07/05/2020 on NRB 15L saturating well; on RA his saturation drops to mid 80s, per RN 07/04/2020 on NRB 15 L; saturating well 07/03/2020 now on NRB 15 L, pt reports he's breathing fine; due for dialysis today 07/02/2020 now at 10 L simple face mask saturating >92% 07/01/2020 per RN pt saturating at low 90s with 6 lpm oxygen simple face mask 06/30/2020 saturating 96% on 6 lpm simple face mask; pt subjectively feels better 06/29/2020 pt in bed; saturating 97% on 6 lpm simple face mask General Appearance: WD/WN, no acute distress HEENT: normocephalic Respiratory: chest wall non-tender, lungs clear, normal breath sounds Cardiovascular: normal rate, regular rhythm, no gallop/murmur Laboratory Tests 07/08/20 16:03: POC Whole Blood Glucose 272H 07/08/20 20:24: POC Whole Blood Glucose 183H 07/09/20 06:10: Sodium Level 134L, Potassium Level 4.4, Chloride Level 101, Carbon Dioxide Level 27, Anion Gap 6, Blood Urea Nitrogen 16, Creatinine 0.5L, Estimat Glomerular Filtration Rate > 60, Glucose Level 102, Calcium Level 8.1L 07/09/20 09:50: White Blood Count 13.3H, Red Blood Count 4.75, Hemoglobin 15.8, Hematocrit 43.7, Mean Corpuscular Volume 92, Mean Corpuscular Hemoglobin 33.2H, Mean Corpuscular Hemoglobin Concent 36.1H, Red Cell Distribution Width 12.4, Platelet Count 189, Mean Platelet Volume 8.7, Neutrophils (%) (Auto) , Lymphocytes (%) (Auto) , Monocytes (%) (Auto) , Eosinophils (%) (Auto) , Basophils (%) (Auto) , Differential Total Cells Counted 100, Neutrophils % (Manual) 89H, Lymphocytes % (Manual) 8L, Monocytes % (Manual) 3, Eosinophils % (Manual) 0, Basophils % (Manual) 0, Band Neutrophils 0, Platelet Estimate Adequate, Platelet Morphology Normal, Red Blood Cell Morphology Normal Current Medications Medications (Trade) Dose Ordered Sig/Sunshine Route PRN Reason Start Time Stop Time Status Last Admin Dose Admin Acetaminophen (Tylenol) 650 mg Q6H PRN ORAL Pain 0-4/10 or Temp >100.4 F 06/29/20 04:15 07/29/20 04:14 Albuterol/ Ipratropium (Combivent Respimat) 1 puff Q6H PRN INH coughing/SOB 06/29/20 07:00 07/29/20 06:59 Dextrose (Dextrose 50%) 25 ml Q30M PRN IV Hypoglycemia 06/29/20 18:30 09/27/20 18:29 Dextrose (Dextrose 50%) 50 ml Q30M PRN IV Hypoglycemia 06/29/20 18:30 09/27/20 18:29 Guaifenesin/ Codeine Phosphate (Robitussin with codeine) 5 ml Q6H PRN ORAL For Cough 07/06/20 16:15 08/05/20 16:14 07/08/20 06:17 Heparin Sodium (Porcine) (Heparin 5000 units/ml) 5,000 units EVERY 12 HOURS SUBQ 06/29/20 09:00 08/13/20 08:59 07/09/20 08:18 Insulin Aspart (NovoLOG) BEFORE MEALS AND HS SUBQ 06/29/20 06:30 09/27/20 06:29 07/09/20 11:22 Insulin Aspart (NovoLOG) 6 units NOVOTIAC SUBQ 07/06/20 11:50 09/27/20 18:29 07/09/20 11:25 Insulin Detemir (Levemir) 12 units QHS SUBQ 07/08/20 21:00 09/27/20 20:59 07/08/20 20:27 Metformin HCl (Glucophage) 500 mg TIWM ORAL 07/07/20 07:00 08/06/20 06:59 07/09/20 11:26 Ondansetron HCl (Zofran) 4 mg Q6H PRN IVP Nausea & Vomiting 06/29/20 04:15 07/29/20 04:14 Sodium Chloride 1,000 ml @ 60 mls/hr [id number] IV 06/29/20 05:30 07/29/20 05:29 07/08/20 21:57 Assessment/Plan Assessment/Plan 1. Bilateral pulmonary infiltrates, high suspicion for COVID-19 pneumonia. Now c onfirmed - completed dexamethasone course today - s/p Remdesivir - s/p empiric Abx - 06/28/2020 COVID-19 test neg; pcr test positive - currently on 3 L NC saturating 97% - titrate down as tolerated; keep saO2 >92% 2. Elevated inflammatory markers. 3. Negative initial rapid gene testing for COVID-19. PCR however positive 4. Hx of hypertension. 5. DM - on glucose-lowering agents 6. Fever. - resolved 7. Bacteremia - plan for f/u Cx noted per Dr. Moise cough - on codeine syrup We will follow carefully. The care for this patient was discussed with my supervising physician Time spent for this case was approximately 31 minutes Zhen Lebron Jul 09, 2020 15:10
--- NOTE | 2020-07-09 15:45 | NUR ---
NURSE NOTES: Dr. Zuñiga aware of slight elevated WBCs and gave no new orders at this time. This was assumed to be due to the effects of dexamethasone.
[2020-07-09 16:00] VITALS: BP 130/65
--- NOTE | 2020-07-09 16:17 | NUR ---
NURSE NOTES: Dr. Garg stated via phone call that the patient would be cleared for discharge if spO2 > 93% on room air.
--- NOTE | 2020-07-09 16:34 | NUR ---
NURSE NOTES: Left a voicemail on Dr. Yun's exchange regarding discharge status, awaiting callback.
--- NOTE | 2020-07-09 19:10 | NUR ---
NURSE HAND-OFF REPORT: Important Events on Shift: Patient Status: Per Dr. Schaffer, patient needs one more day of observation prior to being discharged Diet: Pending Orders: Pending Results/Labs: Pending MD notification: Latest Vital Signs: Temperature 98.3 , Pulse 73 , B/P 130 /65 , Respiratory Rate 18 , O2 SAT 97 , Non-Rebreather, O2 Flow Rate 3.0 . Vital Sign Comment: EKG Rhythm: Sinus Rhythm Rhythm change?: N MD Notified?: N - MD Response: Latest Stafford Fall Score: 20 Fall Risk: Low Risk Safety Measures: Call light Within Reach, Bed Alarm Zone 1, Side Rails Side Rails x2, Bed position Low and Locked. Fall Precautions: Yellow Socks Yellow Gown Patient Fall Education Report given to Tim Askew RN.
--- NOTE | 2020-07-09 19:12 | NUR ---
NURSE NOTES: The patient is alert and oriented x4 and does not appear to be in any active distress at this time.He is on oxygen 1 liters via NC well tolerated. Cardiac spivey the patient is normal Sinus rhythm. He has a RFA IV line running 1/2 NS @ 60ml/hr well tolerated.The bed in low and locked level with call light within reach.Will continue to monitor as indicated.
[2020-07-09 20:00] VITALS: BP 128/64
--- NOTE | 2020-07-09 20:05 | General Progress Note ---
Subjective ROS Limited/Unobtainable: Yes Allergies: Coded Allergies: No Known Allergies (Unverified , 07/11/18) Objective Last 24 Hour Vital Signs Date Time Temp Pulse Resp B/P (MAP) Pulse Ox O2 Delivery O2 Flow Rate FiO2 07/09/20 20:00 95 Non-Rebreather 15.0 100 07/09/20 16:00 98.3 82 18 130/65 (86) 97 07/09/20 16:00 73 07/09/20 12:00 98.1 78 16 114/78 (90) 99 07/09/20 12:00 73 07/09/20 09:00 Nasal Cannula 3.0 07/09/20 08:00 98.0 72 20 117/73 (88) 98 07/09/20 08:00 72 07/09/20 04:00 67 07/09/20 04:00 97.3 68 20 122/68 (86) 97 07/09/20 00:00 97.3 72 20 93/59 (70) 97 07/09/20 00:00 64 07/08/20 21:00 Venturi Mask 10.0 Intake and Output 07/08/20 07/09/20 19:00 07:00 Intake Total 300 ml Output Total 1500 ml 850 ml Balance -1500 ml -550 ml Intake Oral 300 ml Output Urine Total 1500 ml 850 ml Laboratory Tests 07/08/20 20:24: POC Whole Blood Glucose 183H 07/09/20 06:10: Sodium Level 134L, Potassium Level 4.4, Chloride Level 101, Carbon Dioxide Level 27, Anion Gap 6, Blood Urea Nitrogen 16, Creatinine 0.5L, Estimat Glomerular Filtration Rate > 60, Glucose Level 102, Calcium Level 8.1L 07/09/20 09:50: White Blood Count 13.3H, Red Blood Count 4.75, Hemoglobin 15.8, Hematocrit 43.7, Mean Corpuscular Volume 92, Mean Corpuscular Hemoglobin 33.2H, Mean Corpuscular Hemoglobin Concent 36.1H, Red Cell Distribution Width 12.4, Platelet Count 189, Mean Platelet Volume 8.7, Neutrophils (%) (Auto) , Lymphocytes (%) (Auto) , Monocytes (%) (Auto) , Eosinophils (%) (Auto) , Basophils (%) (Auto) , Differential Total Cells Counted 100, Neutrophils % (Manual) 89H, Lymphocytes % (Manual) 8L, Monocytes % (Manual) 3, Eosinophils % (Manual) 0, Basophils % (Manual) 0, Band Neutrophils 0, Platelet Estimate Adequate, Platelet Morphology Normal, Red Blood Cell Morphology Normal 07/09/20 17:17: POC Whole Blood Glucose 196H Height (Feet): 5 Height (Inches): 7.00 Weight (Pounds): 155 Assessment/Plan Problem List: (1) Diabetes mellitus out of control ICD Codes: E11.65 - Type 2 diabetes mellitus with hyperglycemia SNOMED: 52052540, 980580946 (2) Pneumonia due to COVID-19 virus ICD Codes: U07.1 - COVID-19; J12.89 - Other viral pneumonia SNOMED: 647485393815458693 (3) Diabetes ICD Codes: E11.9 - Type 2 diabetes mellitus without complications SNOMED: 25483507 (4) Malnutrition ICD Codes: E46 - Unspecified protein-calorie malnutrition SNOMED: 17775071 (5) Hypoxia ICD Codes: R09.02 - Hypoxemia; J12.89 - Other viral pneumonia SNOMED: 972844178 (6) UTI (urinary tract infection) ICD Codes: N39.0 - Urinary tract infection, site not specified SNOMED: 85654361 (7) Pneumonia ICD Codes: J18.9 - Pneumonia, unspecified organism SNOMED: 053424045 (8) HTN (hypertension) ICD Codes: I10 - Essential (primary) hypertension SNOMED: 23647406 Status: stable, progressing Assessment/Plan: resp insuff covid + dm uti s/p junctional rhythem.consulted Tory Barrett MD Jul 09, 2020 20:05
[2020-07-09] MEDS: guaiFENesin w/Codeine 5ml Liq ud ORAL PRN (21:13)
[2020-07-09] MEDS: Levemir Flexpen SUBQ SCH (21:17)
[2020-07-10] VITALS: BP 134/72
[2020-07-10 04:00] VITALS: BP 118/79
--- NOTE | 2020-07-10 04:30 | NUR ---
NURSE NOTES: The patient is calm and relaxed and cooperative all night long. Will continue to monitor as indicated
[2020-07-10] MEDS: NovoLOG Insulin Flexpen SUBQ SCH ×3 (06:30→11:35)
[2020-07-10] MEDS: metFORMIN 500mg tab ORAL SCH ×2 (06:38→11:16)
--- NOTE | 2020-07-10 06:38 | Hematology/Onc Progress Note ---
Assessment/Plan Assessment/Plan Assessment and recs # Leukocytosis due to Bilateral pulmonary infiltrates, high suspicion for COVID- 19 pneumonia. --> on dexamethasone --> s/p empiric Abx cefepime --> currently on 10 lpm NC saturating well; --> wbc 12-->13 # Elevated ddimer with covid19 pna --> did receive abx since admission --> oxygen supplementation as per before --> pulm re-eval --> venous duplex legs as needed, but hold off, stable for dc # Hypoxia --> 10l Fm, adjust as needed v nonrebreather # Type 2 diabetes # Hypertension # Bacteremia --> per id, on Abx # Dvt ppx heparin sq Appreciate consultation and heydi VARGAS Subjective HEENT: Denies: no symptoms, eye pain, blurred vision, tearing, double vision, ear pain, ear discharge, nose pain, nose congestion, throat pain, throat swelling, mouth pain, mouth swelling, other Cardiovascular: Denies: no symptoms, chest pain, edema, irregular heart rate, lightheadedness, palpitations, syncope, other Respiratory: Denies: no symptoms, cough, shortness of breath, SOB with excertion, SOB at rest, sputum, wheezing, other Gastrointestinal/Abdominal: Denies: no symptoms, abdomen distended, abdominal pain, black stools, tarry stools, blood in stool, constipated, diarrhea, difficulty swallowing, nausea, poor appetite, poor fluid intake, rectal bleeding, vomiting, other Neurologic/Psychiatric: Denies: no symptoms, anxiety, depressed, emotional problems, headache, numbness, paresthesia, pre-existing deficit, seizure, tingling, tremors, weakness, other Endocrine: Denies: no symptoms, excessive sweating, flushing, intolerance to cold, intolerance to heat, increased hunger, increased thirst, increased urine, unexplained weight gain, unexplained weight loss, other Hematologic/Lymphatic: Denies: no symptoms, anemia, easy bleeding, easy bruising, adenopathy, other Allergies: Coded Allergies: No Known Allergies (Unverified , 07/11/18) Subjective 07/04 nonrebreather, meds noted, no bleeding, cbc pending 07/05 labs noted, no bleeding, nrm, no night sweats, heydi vargas 07/06 cbc is pending, labs reviewed, no night sweats, meds noted 07/07 on levemir and novolog, no bleeding, on 15l nrm 07/09 cbc has been ordered, no bleeding, labs reviewed, no events 07/10 nc to continue, is on ivf, no bleeding, labs noted Objective Objective Current Medications Medications (Trade) Dose Ordered Sig/Sunshine Route PRN Reason Start Time Stop Time Status Last Admin Dose Admin Acetaminophen (Tylenol) 650 mg Q6H PRN ORAL Pain 0-4/10 or Temp >100.4 F 06/29/20 04:15 07/29/20 04:14 Albuterol/ Ipratropium (Combivent Respimat) 1 puff Q6H PRN INH coughing/SOB 06/29/20 07:00 07/29/20 06:59 Dextrose (Dextrose 50%) 25 ml Q30M PRN IV Hypoglycemia 06/29/20 18:30 09/27/20 18:29 Dextrose (Dextrose 50%) 50 ml Q30M PRN IV Hypoglycemia 06/29/20 18:30 09/27/20 18:29 Guaifenesin/ Codeine Phosphate (Robitussin with codeine) 5 ml Q6H PRN ORAL For Cough 07/06/20 16:15 08/05/20 16:14 07/09/20 21:13 Heparin Sodium (Porcine) (Heparin 5000 units/ml) 5,000 units EVERY 12 HOURS SUBQ 06/29/20 09:00 08/13/20 08:59 07/09/20 21:15 Insulin Aspart (NovoLOG) BEFORE MEALS AND HS SUBQ 06/29/20 06:30 09/27/20 06:29 07/09/20 21:18 Insulin Aspart (NovoLOG) 6 units NOVOTIAC SUBQ 07/06/20 11:50 09/27/20 18:29 07/09/20 17:29 Insulin Detemir (Levemir) 12 units QHS SUBQ 07/08/20 21:00 09/27/20 20:59 07/09/20 21:17 Metformin HCl (Glucophage) 500 mg TIWM ORAL 07/07/20 07:00 08/06/20 06:59 07/09/20 17:28 Ondansetron HCl (Zofran) 4 mg Q6H PRN IVP Nausea & Vomiting 06/29/20 04:15 07/29/20 04:14 Sodium Chloride 1,000 ml @ 60 mls/hr [id number] IV 06/29/20 05:30 07/29/20 05:29 07/09/20 15:19 Last 24 Hour Vital Signs Date Time Temp Pulse Resp B/P (MAP) Pulse Ox O2 Delivery O2 Flow Rate FiO2 07/10/20 04:00 62 07/10/20 04:00 97.6 71 19 118/79 (92) 96 07/10/20 00:00 70 07/10/20 00:00 98.1 74 17 134/72 (92) 97 07/09/20 21:00 Nasal Cannula 1.0 07/09/20 20:00 95 Non-Rebreather 15.0 100 07/09/20 20:00 98.4 70 19 128/64 (85) 96 07/09/20 20:00 70 07/09/20 16:00 98.3 82 18 130/65 (86) 97 07/09/20 16:00 73 07/09/20 12:00 98.1 78 16 114/78 (90) 99 07/09/20 12:00 73 07/09/20 09:00 Nasal Cannula 3.0 07/09/20 08:00 98.0 72 20 117/73 (88) 98 07/09/20 08:00 72 07/09/20 04:00 67 07/09/20 04:00 97.3 68 20 122/68 (86) 97 07/09/20 00:00 97.3 72 20 93/59 (70) 97 07/09/20 00:00 64 07/08/20 21:00 Venturi Mask 10.0 07/08/20 20:00 73 07/08/20 20:00 97.3 75 20 112/77 (89) 99 07/08/20 20:00 73 07/08/20 19:40 96 Non-Rebreather 15.0 100 07/08/20 16:00 96.9 84 20 140/98 (112) 97 07/08/20 16:00 105 07/08/20 12:00 97.5 76 20 118/85 (96) 98 07/08/20 12:00 76 07/08/20 09:00 Venturi Mask 14.0 07/08/20 08:00 66 07/08/20 08:00 98.0 66 20 125/82 (96) 95 Intake and Output 07/09/20 07/10/20 19:00 07:00 Intake Total 1060 ml 960 ml Output Total 870 ml Balance 1060 ml 90 ml Intake Oral 1000 ml 420 ml IV Total 60 ml 540 ml Output Urine Total 870 ml # Voids 2 Labs Test 07/07/20 08:21 07/07/20 16:42 07/08/20 03:30 07/08/20 11:51 POC Whole Blood Glucose 88 MG/DL (74-106) 269 MG/DL (74-106) 238 MG/DL (74-106) Sodium Level 133 MMOL/L (136-145) Potassium Level 4.5 MMOL/L (3.5-5.1) Chloride Level 101 MMOL/L (98-107) Carbon Dioxide Level 26 MMOL/L (21-32) Anion Gap 6 mmol/L (5-15) Blood Urea Nitrogen 14 mg/dL (7-18) Creatinine 0.6 MG/DL (0.55-1.30) Estimat Glomerular Filtration Rate > 60 mL/min (>60) Glucose Level 184 MG/DL (74-106) Calcium Level 8.3 MG/DL (8.5-10.1) Test 07/08/20 16:03 07/08/20 20:24 07/09/20 06:10 07/09/20 09:50 POC Whole Blood Glucose 272 MG/DL (74-106) 183 MG/DL (74-106) Sodium Level 134 MMOL/L (136-145) Potassium Level 4.4 MMOL/L (3.5-5.1) Chloride Level 101 MMOL/L (98-107) Carbon Dioxide Level 27 MMOL/L (21-32) Anion Gap 6 mmol/L (5-15) Blood Urea Nitrogen 16 mg/dL (7-18) Creatinine 0.5 MG/DL (0.55-1.30) Estimat Glomerular Filtration Rate > 60 mL/min (>60) Glucose Level 102 MG/DL (74-106) Calcium Level 8.1 MG/DL (8.5-10.1) White Blood Count 13.3 K/UL (4.8-10.8) Red Blood Count 4.75 M/UL (4.70-6.10) Hemoglobin 15.8 G/DL (14.2-18.0) Hematocrit 43.7 % (42.0-52.0) Mean Corpuscular Volume 92 FL (80-99) Mean Corpuscular Hemoglobin 33.2 PG (27.0-31.0) Mean Corpuscular Hemoglobin Concent 36.1 G/DL (32.0-36.0) Red Cell Distribution Width 12.4 % (11.6-14.8) Platelet Count 189 K/UL (150-450) Mean Platelet Volume 8.7 FL (6.5-10.1) Neutrophils (%) (Auto) % (45.0-75.0) Lymphocytes (%) (Auto) % (20.0-45.0) Monocytes (%) (Auto) % (1.0-10.0) Eosinophils (%) (Auto) % (0.0-3.0) Basophils (%) (Auto) % (0.0-2.0) Differential Total Cells Counted 100 Neutrophils % (Manual) 89 % (45-75) Lymphocytes % (Manual) 8 % (20-45) Monocytes % (Manual) 3 % (1-10) Eosinophils % (Manual) 0 % (0-3) Basophils % (Manual) 0 % (0-2) Band Neutrophils 0 % (0-8) Platelet Estimate Adequate Platelet Morphology Normal Red Blood Cell Morphology Normal Test 07/09/20 17:17 POC Whole Blood Glucose 196 MG/DL (74-106) Height (Feet): 5 Height (Inches): 7.00 Weight (Pounds): 155 Objective General: moderate distress Heent: normocephalic, atraumatic Neck: supple Resp: no respiratory distress, no retraction, ++ nonrebreather Cardiovascular: tachycardia Gastrointestinal: non tender, soft Genitourinary: no CVA tenderness Musculoskeletal: back normal, no calf tenderness Neurologic: alert, motor strength/tone normal, oriented x3, sensory intact Skin: no rash Lymphatic: no adenopathy Ever Mcadams MD Jul 10, 2020 06:37
--- NOTE | 2020-07-10 06:56 | NUR ---
NURSE HAND-OFF REPORT: Important Events on Shift: Patient Status: Diet: Pending Orders: Pending Results/Labs: Pending MD notification: Latest Vital Signs: Temperature 97.6 , Pulse 62 , B/P 118 /79 , Respiratory Rate 19 , O2 SAT 96 , Non-Rebreather, O2 Flow Rate 1.0 . Vital Sign Comment: EKG Rhythm: Sinus Rhythm Rhythm change?: N MD Notified?: N - MD Response: Latest Stafford Fall Score: 20 Fall Risk: Low Risk Safety Measures: Call light Within Reach, Bed Alarm Zone 1, Side Rails Side Rails x2, Bed position Low and Locked. Fall Precautions: Yellow Socks Yellow Gown Patient Fall Education Report given to .
--- NOTE | 2020-07-10 07:05 | NUR ---
NURSE NOTES: Received patient report from ALICIA Dumont. Patient is AO x4. Breathing is even and unlabored with no signs of respiratory distress. No pain or discomfort noted at this time. Pt has a RFA IV line running 1/2 NS @ 60ml/hr, patent and intact. Bed in lowest position, locked with side rails x2 up. Call light within reach at all times. The patient is alert and oriented x4 and does not appear to be in any active distress at this time.He is on oxygen 1 liters via NC well tolerated. Cardiac spivey the patient is normal Sinus rhythm. He has well tolerated.The bed in low and locked level with call light within reach.Will continue to monitor as indicated.
--- NOTE | 2020-07-10 07:40 | General Progress Note ---
Subjective ROS Limited/Unobtainable: Yes Allergies: Coded Allergies: No Known Allergies (Unverified , 07/11/18) Subjective events noted interval notes reviewed fair glycemic control no longer on dexamethasone Item Value Date Time Bedside Blood Glucose 126 mg/dl H 07/10/20 0640 Bedside Blood Glucose 168 mg/dl H 07/09/20 2118 Bedside Blood Glucose 196 mg/dl H 07/09/20 1729 Bedside Blood Glucose 209 mg/dl H 07/09/20 1130 Bedside Blood Glucose 118 mg/dl 07/09/20 0647 Objective Last 24 Hour Vital Signs Date Time Temp Pulse Resp B/P (MAP) Pulse Ox O2 Delivery O2 Flow Rate FiO2 07/10/20 04:00 62 07/10/20 04:00 97.6 71 19 118/79 (92) 96 07/10/20 00:00 70 07/10/20 00:00 98.1 74 17 134/72 (92) 97 07/09/20 21:00 Nasal Cannula 1.0 07/09/20 20:00 95 Non-Rebreather 15.0 100 07/09/20 20:00 98.4 70 19 128/64 (85) 96 07/09/20 20:00 70 07/09/20 16:00 98.3 82 18 130/65 (86) 97 07/09/20 16:00 73 07/09/20 12:00 98.1 78 16 114/78 (90) 99 07/09/20 12:00 73 07/09/20 09:00 Nasal Cannula 3.0 07/09/20 08:00 98.0 72 20 117/73 (88) 98 07/09/20 08:00 72 Intake and Output 07/09/20 07/10/20 19:00 07:00 Intake Total 1060 ml 960 ml Output Total 870 ml Balance 1060 ml 90 ml Intake Oral 1000 ml 420 ml IV Total 60 ml 540 ml Output Urine Total 870 ml # Voids 2 Laboratory Tests 07/09/20 09:50: White Blood Count 13.3H, Red Blood Count 4.75, Hemoglobin 15.8, Hematocrit 43.7, Mean Corpuscular Volume 92, Mean Corpuscular Hemoglobin 33.2H, Mean Corpuscular Hemoglobin Concent 36.1H, Red Cell Distribution Width 12.4, Platelet Count 189, Mean Platelet Volume 8.7, Neutrophils (%) (Auto) , Lymphocytes (%) (Auto) , Monocytes (%) (Auto) , Eosinophils (%) (Auto) , Basophils (%) (Auto) , Differential Total Cells Counted 100, Neutrophils % (Manual) 89H, Lymphocytes % (Manual) 8L, Monocytes % (Manual) 3, Eosinophils % (Manual) 0, Basophils % (Manual) 0, Band Neutrophils 0, Platelet Estimate Adequate, Platelet Morphology Normal, Red Blood Cell Morphology Normal 07/09/20 17:17: POC Whole Blood Glucose 196H Height (Feet): 5 Height (Inches): 7.00 Weight (Pounds): 155 Objective Current Medications Medications (Trade) Dose Ordered Sig/Sunshine Route PRN Reason Start Time Stop Time Status Last Admin Dose Admin Acetaminophen (Tylenol) 650 mg Q6H PRN ORAL Pain 0-4/10 or Temp >100.4 F 06/29/20 04:15 07/29/20 04:14 Albuterol/ Ipratropium (Combivent Respimat) 1 puff Q6H PRN INH coughing/SOB 06/29/20 07:00 07/29/20 06:59 Dextrose (Dextrose 50%) 25 ml Q30M PRN IV Hypoglycemia 06/29/20 18:30 09/27/20 18:29 Dextrose (Dextrose 50%) 50 ml Q30M PRN IV Hypoglycemia 06/29/20 18:30 09/27/20 18:29 Guaifenesin/ Codeine Phosphate (Robitussin with codeine) 5 ml Q6H PRN ORAL For Cough 07/06/20 16:15 08/05/20 16:14 07/09/20 21:13 Heparin Sodium (Porcine) (Heparin 5000 units/ml) 5,000 units EVERY 12 HOURS SUBQ 06/29/20 09:00 08/13/20 08:59 07/09/20 21:15 Insulin Aspart (NovoLOG) BEFORE MEALS AND HS SUBQ 06/29/20 06:30 09/27/20 06:29 07/09/20 21:18 Insulin Aspart (NovoLOG) 6 units NOVOTIAC SUBQ 07/06/20 11:50 09/27/20 18:29 07/10/20 06:40 Insulin Detemir (Levemir) 12 units QHS SUBQ 07/08/20 21:00 09/27/20 20:59 07/09/20 21:17 Metformin HCl (Glucophage) 500 mg TIWM ORAL 07/07/20 07:00 08/06/20 06:59 07/10/20 06:38 Ondansetron HCl (Zofran) 4 mg Q6H PRN IVP Nausea & Vomiting 06/29/20 04:15 07/29/20 04:14 Sodium Chloride 1,000 ml @ 60 mls/hr [id number] IV 06/29/20 05:30 07/29/20 05:29 07/09/20 15:19 Assessment/Plan Problem List: (1) Diabetes mellitus out of control ICD Codes: E11.65 - Type 2 diabetes mellitus with hyperglycemia SNOMED: 99572142, 883834843 (2) Pneumonia due to COVID-19 virus ICD Codes: U07.1 - COVID-19; J12.89 - Other viral pneumonia SNOMED: 471627722666396330 Status: stable, progressing Assessment/Plan: continue Metformin 500 mg tid DC Levemir and scheduled Novolog add Januvia 100 mg daily continue Novolog sliding scale ac hs Lucio Portillo MD Jul 10, 2020 07:40
[2020-07-10 08:00] VITALS: BP 115/71
--- NOTE | 2020-07-10 08:03 | NUR ---
ASE MANAGEMENT:REVIEW 07/10/20 SI: LUIS A COVID PNA. BACTEREMIA 97.6 71 19 118/79 96% 1L NC IS: COMPLETED REMDESIVIR JANUVIA PO QAM metformin po HEPARIN SQ Q12 IVF@60/HR : TELEMETRY DCP FROM HOME
[2020-07-10] MEDS: Heparin 5000 units/ml inj SUBQ SCH (08:25)
--- NOTE | 2020-07-10 11:36 | Infectious Diseases Prog Note ---
Assessment/Plan Assessment/Plan antibiotics : remdesivir A 1. COVID 19 pneumonia on 1 liter O2, saturation 98 percent s/p remdesivir s/p dexamethasone 2. coag neg staph likely contaminated in blood 3. diabetes mellitus 4. hypertension P 1. continue off antibiotics 2. will follow up cultures Subjective Constitutional: Denies: fever, chills Respiratory: Reports: shortness of breath - less; Denies: dry cough Gastrointestinal/Abdominal: Denies: nausea, vomiting, diarrhea Musculoskeletal: Denies: pain Allergies: Coded Allergies: No Known Allergies (Unverified , 07/11/18) Objective Last 24 Hour Vital Signs Date Time Temp Pulse Resp B/P (MAP) Pulse Ox O2 Delivery O2 Flow Rate FiO2 07/10/20 09:00 Nasal Cannula 1.0 07/10/20 08:00 67 07/10/20 08:00 97.8 70 19 115/71 (86) 98 07/10/20 04:00 62 07/10/20 04:00 97.6 71 19 118/79 (92) 96 07/10/20 00:00 70 07/10/20 00:00 98.1 74 17 134/72 (92) 97 07/09/20 21:00 Nasal Cannula 1.0 07/09/20 20:00 95 Non-Rebreather 15.0 100 07/09/20 20:00 98.4 70 19 128/64 (85) 96 07/09/20 20:00 70 07/09/20 16:00 98.3 82 18 130/65 (86) 97 07/09/20 16:00 73 07/09/20 12:00 98.1 78 16 114/78 (90) 99 07/09/20 12:00 73 Height (Feet): 5 Height (Inches): 7.00 Weight (Pounds): 155 Laboratory Tests Test 07/09/20 17:17 POC Whole Blood Glucose 196 MG/DL (74-106) H Current Medications Medications (Trade) Dose Ordered Sig/Sunshine Route PRN Reason Start Time Stop Time Status Last Admin Dose Admin Acetaminophen (Tylenol) 650 mg Q6H PRN ORAL Pain 0-4/10 or Temp >100.4 F 06/29/20 04:15 07/29/20 04:14 Albuterol/ Ipratropium (Combivent Respimat) 1 puff Q6H PRN INH coughing/SOB 06/29/20 07:00 07/29/20 06:59 Dextrose (Dextrose 50%) 25 ml Q30M PRN IV Hypoglycemia 06/29/20 18:30 09/27/20 18:29 Dextrose (Dextrose 50%) 50 ml Q30M PRN IV Hypoglycemia 06/29/20 18:30 09/27/20 18:29 Guaifenesin/ Codeine Phosphate (Robitussin with codeine) 5 ml Q6H PRN ORAL For Cough 07/06/20 16:15 08/05/20 16:14 07/09/20 21:13 Heparin Sodium (Porcine) (Heparin 5000 units/ml) 5,000 units EVERY 12 HOURS SUBQ 06/29/20 09:00 08/13/20 08:59 07/10/20 08:25 Insulin Aspart (NovoLOG) BEFORE MEALS AND HS SUBQ 06/29/20 06:30 09/27/20 06:29 07/09/20 21:18 Metformin HCl (Glucophage) 500 mg TIWM ORAL 07/07/20 07:00 08/06/20 06:59 07/10/20 11:16 Ondansetron HCl (Zofran) 4 mg Q6H PRN IVP Nausea & Vomiting 06/29/20 04:15 07/29/20 04:14 Sitagliptin Phosphate (Januvia) 100 mg ACBREAKFAST ORAL 07/10/20 07:45 08/09/20 07:44 07/10/20 08:23 Sodium Chloride 1,000 ml @ 60 mls/hr [id number] IV 06/29/20 05:30 07/29/20 05:29 07/10/20 08:24 Navarro Zuñiga MD Jul 10, 2020 11:36
--- NOTE | 2020-07-10 11:38 | General Progress Note ---
Subjective ROS Limited/Unobtainable: Yes Allergies: Coded Allergies: No Known Allergies (Unverified , 07/11/18) Objective Last 24 Hour Vital Signs Date Time Temp Pulse Resp B/P (MAP) Pulse Ox O2 Delivery O2 Flow Rate FiO2 07/10/20 09:00 Nasal Cannula 1.0 07/10/20 08:00 67 07/10/20 08:00 97.8 70 19 115/71 (86) 98 07/10/20 04:00 62 07/10/20 04:00 97.6 71 19 118/79 (92) 96 07/10/20 00:00 70 07/10/20 00:00 98.1 74 17 134/72 (92) 97 07/09/20 21:00 Nasal Cannula 1.0 07/09/20 20:00 95 Non-Rebreather 15.0 100 07/09/20 20:00 98.4 70 19 128/64 (85) 96 07/09/20 20:00 70 07/09/20 16:00 98.3 82 18 130/65 (86) 97 07/09/20 16:00 73 07/09/20 12:00 98.1 78 16 114/78 (90) 99 07/09/20 12:00 73 Intake and Output 07/09/20 07/10/20 19:00 07:00 Intake Total 1060 ml 960 ml Output Total 870 ml Balance 1060 ml 90 ml Intake Oral 1000 ml 420 ml IV Total 60 ml 540 ml Output Urine Total 870 ml # Voids 2 Laboratory Tests 07/09/20 17:17: POC Whole Blood Glucose 196H Height (Feet): 5 Height (Inches): 7.00 Weight (Pounds): 155 Assessment/Plan Problem List: (1) Diabetes mellitus out of control ICD Codes: E11.65 - Type 2 diabetes mellitus with hyperglycemia SNOMED: 43693879, 843479949 (2) Pneumonia due to COVID-19 virus ICD Codes: U07.1 - COVID-19; J12.89 - Other viral pneumonia SNOMED: 421320934689213078 (3) Diabetes ICD Codes: E11.9 - Type 2 diabetes mellitus without complications SNOMED: 61616873 (4) Malnutrition ICD Codes: E46 - Unspecified protein-calorie malnutrition SNOMED: 32825105 (5) Hypoxia ICD Codes: R09.02 - Hypoxemia; J12.89 - Other viral pneumonia SNOMED: 337053319 (6) UTI (urinary tract infection) ICD Codes: N39.0 - Urinary tract infection, site not specified SNOMED: 15279800 (7) Pneumonia ICD Codes: J18.9 - Pneumonia, unspecified organism SNOMED: 828846044 (8) HTN (hypertension) ICD Codes: I10 - Essential (primary) hypertension SNOMED: 32811916 Status: stable, progressing Assessment/Plan: resp insuff covid + dm uti is improving check sugar Tory Schaffer MD Jul 10, 2020 11:38
[2020-07-10 12:00] VITALS: BP 118/70
--- NOTE | 2020-07-11 16:00 | Discharge Summary ---
Discharge Summary Discharge Summary _ Date of admission: 06/28/2020 Date of discharge: 07/10/[address] Yun History of Present Illness and Brief Hospital Course This is a 55-year-old male with history of type 2 diabetes, hypertension on medication, who presented to the ER with 4 days of flulike symptoms including headache, and sore throat. Patient was found to be hypoxic, saturating at 84% on room air on arrival. Patient was subsequently given 6 L of supplemental oxygen via nonrebreather mask and his SaO2 improved to 98%. Chest x-ray was ordered to evaluate possible lung pathology, which revealed multilobar infiltrates consistent with suspected coronavirus pneumonia. Patient was started on medications including Decadron, and empiric antibiotics (Rocephin, ceftriaxone). Patient was admitted to the hospital for further e valuation and treatment of suspected coronavirus pneumonia despite negative rapid COVID-19 test. Patient was provided supplemental oxygen as needed to keep SaO2 above 92%. A repeat COVID-19 PCR test was positive. Initially patient was hypoxic and required supplemental oxygen via 15 L nonrebreather mask. On continued treatment with remdesivir, empiric antibiotics, dexamethasone, patient was weaned down to nasal cannula oxygen delivery. A blood culture showed gram-positive cocci in clusters. Patient was started on IV vancomycin. Urinalysis showed 1+ leukocyte esterase. Patient was already on antibiotics at this point. Patient also had a history of diabetes mellitus with poor glycemic control. He was started on Levemir 20 units twice daily, Novolog 12 units AC TID + SSI. With subsequent reduction of blood glucose level, dosages of Levemir and NovoLog were adjusted accordingly. Before his discharge patient was prescribed Metformin 500 mg 3 times daily, and Januvia 100 mg daily. D-dimer was found to be elevated. Patient did receive antibiotics since admission and oxygen supplementation was provided. All in all, he reported improvement in his respiration and his blood glucose level was amenable to glucose lowering agents prescribed. He was clinically s table for discharge and was discharged home. Consultants: Hematology oncology Dr. Mcadams Infectious disease Dr. Moise, Dr. Zuñiga Pulmonology Dr. Garg Endocrinology Dr. Gaming Discharge Condition Improved and stable with unlabored breathing without any signs of respiratory distress. Discharge Activity As tolerated Discharge Diet Regular Final diagnoses COVID-19 pneumonia Hypoxia, resolved UTI, resolved Leukocytosis Elevated D-dimer Type 2 diabetes Hypertension Bacteremia I have been assigned to dictate discharge summary for this account. Zhen Lebron Jul 11, 2020 16:00
== END 2020-07-10 16:26 | disposition home or self-care (01) | DRG 177 ==
LOC: EMR 13:18 → 2E 13:59 → EDBEDREQ 17:35
DX: U07.1 COVID-19 (principal); J12.89 Other viral pneumonia; E46 Unspecified protein-calorie malnutrition; N39.0 Urinary tract infection, site not specified; R78.81 Bacteremia; E11.65 Type 2 diabetes mellitus with hyperglycemia; R09.02 Hypoxemia; I10 Essential (primary) hypertension; Z79.4 Long term (current) use of insulin
CPT/HCPCS: 36415; 71045; 80048; 80053; 80076; 80202; 81003; 82248; 82550; 82553; 82728; 82962; 83036; 83605; 83615; 83690; 83880; 84484; 85007; 85025; 85379; 85610; 85730; 86140; 87040; 87181; 93005; 96361; 96365; 96367; 96375; 99291; J1815; J3490; J7030; J8499; S5561; U0002